=== PATIENT | male | born 1930 | race Caucasian/White ===

== ENCOUNTER → 2017-10-31 | Outpatient (CLI) | payer MEDICARE ==
[~2017-10-31] MED LIST: ADJUSTABLE COMM1 MIS; CPMMACHINE; DIAZ5TAB PO; FOLI800T PO; HYDR-3580 PO; OMEP20TA93 PO; TAMS0.4C4; VITA500T35 PO; WALKER WHEELS/F1 MIS
[2017-10-31 10:03] LABS: INTERNATIONAL NORMALIZED RATIO 1.1 RATIO; PROTHROMBIN TIME - PATIENT 11.3 SEC (9.8-11.6)
[2017-10-31 10:12] LABS: ALBUMIN 3.7 GM/DL (3.4-5.0); ALKALINE PHOSPHATASE 113 U/L (45-117); ALT (GPT) 21 U/L (12-78); AST (GOT) 25 U/L (15-37); BICARBONATE 24.1 MEQ/L (21.0-32.0); BLOOD UREA NITROGEN 21 MG/DL (7-18); CALCIUM 8.4 MG/DL (8.5-10.1); CHLORIDE 109 MEQ/L (98-107); CREATININE 1.45 MG/DL (0.60-1.30); GLOMERULAR FILTRATION RATE 46 ML/MIN (>89); GLUCOSE,FASTING 142 MG/DL (74-99); SODIUM (NA) 140 MEQ/L (136-145); TOTAL BILIRUBIN ADULT 0.9 MG/DL (0.2-1.0); TOTAL PROTEIN 7.8 GM/DL (6.4-8.2)
[2017-10-31 10:17] LABS: BILIRUBIN, URINE NEG (NEG); BLOOD, URINE TRACE (NEG); GLUCOSE,URINE NEG (NEG); KETONE, URINE NEG (NEG); MUCUS URINE FEW /lpf (OCC); NITRITE,URINE NEG (NEG); PH, URINE 5.5 (5.0-8.5); URINE COLOR YELLOW (YELLW/STRAW); URINE LEUKOCYTE ESTERASE NEG (NEG)
[2017-10-31 10:20] LABS: AUTOMATED NEUTROPHIL # 4.4 TH/MM3 (1.8-7.7); BASOPHIL # 0.1 TH/MM3 (0-0.2); BASOPHIL % 0.7 % (0.0-2.0); EOSINOPHIL # 0.1 TH/MM3 (0-0.4); HEMATOCRIT 33.7 % (39.0-51.0); HEMOGLOBIN 12.3 GM/DL (13.0-17.0); LYMPH % 26.7 % (9.0-44.0); LYMPHOCYTE # 1.8 TH/MM3 (1.0-4.8); MEAN CELL VOLUME 109.3 FL (80.0-100.0); MEAN CORPUSCULAR HEMOGLOBIN 39.8 PG (27.0-34.0); MEAN CORPUSCULAR HGB CONC 36.4 % (32.0-36.0); MEAN PLATELET VOLUME 9.5 FL (7.0-11.0); MONO % 8.3 % (0.0-8.0); MONOCYTE # 0.6 TH/MM3 (0-0.9); NEUT % 63.3 % (16.0-70.0); PLATELET COUNT 335 TH/MM3 (150-450); RED BLOOD COUNT 3.08 MIL/MM3 (4.50-5.90); RED CELL DISTRIBUTION WIDTH 14.3 % (11.6-17.2); WHITE BLOOD COUNT 6.9 TH/MM3 (4.0-11.0)
[2017-10-31 10:48] LABS: SPHEROCYTES OCC (NORMAL)
== END ==
LOC: CPRE 08:33
PROVIDERS: ATTEND Surgery
DX: Z01.812 Encounter for preprocedural laboratory examination (principal); M79.609 Pain in unspecified limb
CPT/HCPCS: 36415; 80053; 81001; 85025; 85610; 85730

== ENCOUNTER 2017-11-07 11:19 | Inpatient (IN) | payer MEDICARE ==
--- NOTE | 2017-11-01 17:23 | MH ---
cc: Aurea Capellan MD DATE OF ADMISSION: 11/07/2017 ADMITTING DIAGNOSIS: Osteoarthritic degeneration of the left knee, now being admitted for left total knee arthroplasty. 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 He has been cleared by his primary care physician. PAST MEDICAL HISTORY: He has a history of dizziness. He does have a type of anemia for which he is on B12. MEDICATIONS: He also takes Folic acid, omeprazole and tamsulosin. REVIEW OF SYSTEMS: Noncontributory. FAMILY HISTORY: Noncontributory. SOCIAL HISTORY: The patient does not smoke cigarettes and he does not drink. ALLERGIES: NO KNOWN ALLERGIES. PHYSICAL EXAMINATION: GENERAL We find an 86-year-old male, well-developed, well-nourished, alert and oriented x 3, complaining of pain in his left knee. VITAL SIGNS: Blood pressure 118/78, pulse 75 and regular, respirations 16, temperature 98.4, pulse oximetry 98% on room air. HEENT: Eyes: PERRL. EOMI. Ears, nose, and mouth clear. NECK: Supple. LUNGS: Clear. HEART: Regular rate. ABDOMEN: Soft, positive bowel sounds, nontender. EXTREMITIES: Reveals the left knee to be tender with crepitance on range of motion. He lacks 5 degrees short of full extension. He is neurovascularly intact to his toes. IMPRESSION: Severe painful osteoarthritic degeneration of the left knee. PLAN: Admission for left total knee arthroplasty today. The patient is given his current postoperative pain, anticoagulation control in the office, plans on going home with home health care and physical therapy after the surgical stay in the hospital. Aurea Capellan MD JRNam/KD , 04:59 PM , 05:22 PM
[~2017-11-07] VITALS: Ht 180.3 cm; Wt 80.0 kg
[~2017-11-07 11:19] MED LIST changes: -ADJUSTABLE COMM1 MIS; -CPMMACHINE; -HYDR-3580 PO; -WALKER WHEELS/F1 MIS
[2017-11-07] MEDS ORDERED: ceFAZolin INJ 1,000 MG VIAL IV ONE (12:00)
[2017-11-07] MEDS ORDERED: POVIDONE IODINE 5% (ANTISEPSIS KIT) 4 APPLICATIONS EACH NARE PRN (12:00)
[2017-11-07] MEDS ORDERED: METOPROLOL TARTRATE 25 MG TAB PO PRN (12:00)
[2017-11-07] MEDS ORDERED: PROPOFOL 200 MG/20 ML AMP IV ONE (12:00)
[2017-11-07] MEDS ORDERED: SODIUM CHLORID 0.9% 500 ML IV PRN (12:00)
[2017-11-07] MEDS ORDERED: SODIUM CHLORIDE 0.9% IV SCH ×4 (12:00)
[2017-11-07] MEDS ORDERED: TRANEXAMIC ACID IV SCH ×4 (12:00)
[2017-11-07] MEDS ORDERED: CHLORHEXIDINE GLUCONATE 2 % 1 PACK (2 CLOTHS) TOPICAL PRN (12:00)
[2017-11-07] MEDS ORDERED: LACTATED RINGER'S 1000 ML IV PRN (12:00)
[2017-11-07] MEDS ORDERED: INSULIN HUMAN REGULAR 1,000 UNITS/10 ML VIAL SQ PRN (12:00)
[2017-11-07] MEDS ORDERED: CHLORHEXIDINE GLUCONATE 4% SOLN 120 ML BTL TOPICAL SCH (12:00)
[2017-11-07] MEDS ORDERED: VANCOMYCIN 1 GM/200 ML INJ 200 ML IV ONE (12:11)
[2017-11-07] MEDS ORDERED: BUPIVACAINE LIPOSO PF 1.3% INJ 20 ML, BUPIVACAINE PF 0.25% INJ 20 ML in SODIUM CHLORIDE... P-ARTICULR SCH (12:15)
[2017-11-07 12:23] VITALS: PULSE 68
[2017-11-07] MEDS ORDERED: ceFAZolin 2 GM in NS 100 ML IV SCH (12:30)
[2017-11-07] MEDS ORDERED: VANCOMYCIN 1 GM/200 ML PREMIX IV SCH (12:30)
[2017-11-07] MEDS ORDERED: ceFAZolin INJ 1,000 MG VIAL ONE (13:38)
[2017-11-07] MEDS ORDERED: BUPIVACAINE PF 0.75% DEX-WATER INJ 2 ML AMP ONE (14:02)
[2017-11-07] MEDS ORDERED: BUPIVACAINE HCL PF 0.5% 30 ML VIAL ONE (14:05)
[2017-11-07] MEDS ORDERED: ONDANSETRON HCL 4 MG/2 ML VIAL IVP PRN (14:15)
[2017-11-07] MEDS ORDERED: DIAZEPAM 5 MG TAB PO PRN (14:15)
[2017-11-07] MEDS ORDERED: NALOXONE HCL 0.4 MG/ML AMP IV PUSH PRN (14:15)
[2017-11-07] MEDS ORDERED: ACETAMINOPHEN 325 MG TAB PO PRN (14:15)
[2017-11-07] MEDS ORDERED: MORPHINE SULFATE 4 MG/ML INJ IV PUSH PRN (14:15)
[2017-11-07] MEDS ORDERED: diphenhydrAMINE HCL 50 MG/ML VIAL IV PUSH PRN (14:15)
[2017-11-07] MEDS ORDERED: Post-op Orders (for Pharmacy) XX ONE (14:15)
[2017-11-07] MEDS ORDERED: TRANEXAMIC ACID INJ 0 MG in SODIUM CHLORIDE 0.9% INJ 100 ML IV SCH (14:15)
--- NOTE | 2017-11-07 14:16 | HHI.FF ---
Face to Face Verification Diagnosis: (1) Status post total left knee replacement Physical Therapy Gait training Knee: Total knee, Protocol: Left, Gait training, Full weight bearing Canvas Knee Splint: When in bed & 2 pillows btw thighs Nursing RN: 3 days/week x 2 weeks Nursing: Dressing changes Dressing Changes: Daily dressing change, 4x4s, Gauze, Paper tape I have seen patient Chris Angel on 11/07/17. My clinical findings support the need for the requested home health care services because: Limited ability to care for self High risk of falls I certify that my clinical findings support that this patient is homebound because: Unsteady gait/balance Aurea Capellan MD Nov 07, 2017 14:16
[2017-11-07] MEDS ORDERED: CPMMACHINE (14:17)
[2017-11-07] MEDS ORDERED: ADJUSTABLE COMM1 MIS (14:17)
[2017-11-07] MEDS ORDERED: WALKER WHEELS/F1 MIS (14:17)
[2017-11-07] MEDS ORDERED: MIDAZOLAM HCL 2 MG/2 ML VIAL ONE (15:12)
[2017-11-07 16:00] VITALS: BP 123/75; PULSE 73; RESP 18; TEMP 98.5; O2SAT 97
--- NOTE | 2017-11-07 17:30 | MP ---
cc: Aurea Capellan MD DATE OF OPERATION: 11/07/2017 PREOPERATIVE DIAGNOSIS: Osteoarthritic degeneration, left knee. POSTOPERATIVE DIAGNOSIS: Osteoarthritic degeneration, left knee. PROCEDURE PERFORMED: Left total knee arthroplasty using Consensus components, size 6 femur, 4 tibia, 10 standard insert and size 2 x 10 mm patella with 3 batches of DePuy cement. SURGEON: Aurea Capellan MD SHEARER PRINTED CIRCUIT BOARDS: STEPH Cavazos TYPE OF ANESTHESIA: Spinal. PROCEDURE: After successful induction of anesthesia, the patient is placed on the operating room table in the supine position. The knee is prepped and draped in the usual manner. No tourniquet was utilized in this case. A longitudinal incision is made extending from 3 inches proximal to the superior pole of the patella, across the patella in longitudinal fashion, and down past the insertion of the tibial tubercle into the proximal tibia. The incision is carried down through subcutaneous tissue along the medial aspect of the patella and retinaculum, down through the capsule to expose the knee joint. The patella and patellar tendon are freed up enough to allow the patella to be inverted and retracted off the lateral side of the knee joint. The knee joint is left exposed. Small osteophytes are removed. All soft tissue is removed to allow proper position of the femoral and tibial cutting jig guide. The first femoral jig is then inserted along the distal end of the femur after first measuring to decide whether this is a small, medium, or large component. The notch is then drilled and the tibial cutting guide inserted into the femoral cutting guide, along with the ankle brace to allow for proper measurement of the tibial cutting surface that needed to be resected. Pins are inserted into the tibial cutting jig and femoral cutting jig to hold them in place. An oscillating saw is then used to resect the surface of the tibia. The surface of the tibia is then completely removed using sharp and blunt dissection. The anterior and posterior cuts of the femur are then made as well using an oscillating saw through the cutting guide. All guides are then removed and the varus/valgus angulation cutting guide applied to the femur for proper measurement of the proper amount of valgus. The anterior cutting guide for the femur is then inserted at the anterior femoral cuts made. Next, the first block trial is inserted into the femur to allow for proper condyle drill holes to be made which are then made followed by removal of the bone between the condyles using an oscillating saw as well as the bone removed at the most posterior surface of the condyle. After this, this guide is removed and the chamfer cuts made using the chamfer cutting guide from both anterior and posterior. Next, the femoral trial is then inserted, the tibial surface reflected anterior to expose the tibial surface and a tibial stem guide is inserted after first measuring for a standard, standard plus, large, or large plus surface to be used. After the stem is impacted the trial tibial surface is applied followed by the trial meniscal components. After full range of motion is found with the appropriate length meniscal components varying the patella is prepared by resecting the posterior aspect of the patella using an oscillating saw, inserting a trial. The trial is then removed and the cruciate cutting guide applied using the bur to cut the cruciate cuts. After cruciate cuts are made all trials are removed. The wound is irrigated copiously with antibiotic solution and Water Pik and the actual components inserted into place using the aforementioned components. The cement has hardened and the components are found to have full range of motion with no instability. The wound again is irrigated copiously with antibiotic solution. Meticulous hemostasis achieved and 120 mL mixture of Exparel, normal saline and 0.25% Marcaine used for extra pain control around the knee joint. Deep fascia approximated with running #2 Quill. Subcutaneous tissue approximated using interrupted running 2-0 and 4-0 Monocryl suture and Primapore dressing applied and knee immobilizer. No drain utilized. ESTIMATED BLOOD LOSS: 200 mL. COUNTS: Sponge and suture counts were correct. COMPONENTS: The components used were Consensus components, size 6 femur, 4 tibia, 10 standard insert and size 2 x 10 mm patella with 3 batches of DePuy cement. The patient tolerated the procedure well and left the operating room in satisfactory condition. Anayeli Wagner was present during the entire procedure to include patient positioning and the procedure. The medical necessity of the nurse practitioner marketing administrative assistant was indicated in this case due to the surgical complexity of the case itself and during the surgical case, the assistant professor surgical technology was working the back table while my surgical assistant BENDER HAND was directly assisting me. J. MD KEITH Feliciano/JUDI , 05:00 PM , 05:29 PM
--- NOTE | 2017-11-07 17:32 | HHI.PR ---
Immediate Post Op Note Procedure Date: Nov 07, 2017 Pre Op Diagnosis: Osteoarthritic degeneration of the left knee Post Op Diagnosis: Osteoarthritic degeneration of the left knee Surgeon: Sabas Capellan MD Music Publicist(s): Anayeli CHOI Procedure: Left Total Knee Arthroplasty Complications: none Specimen(s) removed: none Estimated blood loss: 200 cc Anesthesia: Spinal Drains: None IVF Urinary Output (mLs): 0 (No del valle) Tourniquet time (min at mmHg) none Patient to: PACU Patient Condition: Good Implant/Devices: SEE IMPLANT LOG (if applicable) Date/Time of Procedure: SEE SURGICAL CARE RECORD Anayeli Wagner Nov 07, 2017 17:32
[2017-11-07] MEDS: LACTATED RINGER'S 1000 ML INJ 1,000 ML IV SCH (17:55)
[2017-11-07] MEDS ORDERED: DO NOT ADM ANY ANTICOAGULANT DRUGS PRN (18:00)
--- NOTE | 2017-11-07 18:06 | RADRPT ---
EXAM DATE/TIME: 11/07/2017 18:46 [facility] COMPARISON: No previous studies available for comparison. INDICATIONS : Post operative left knee. MEDICAL HISTORY : None. SURGICAL HISTORY : None. ENCOUNTER: Initial ACUITY: 1 day PAIN SCORE: 0/10 LOCATION: Left knee. FINDINGS: Two view examination of the left knee demonstrates postoperative left total knee replacement. Air and fluid in the soft tissues. No complications identified. CONCLUSION: 1. Postoperative left total knee replacement as above. Ganga Lewis MD on November 07, 2017 at 18:02 Board Certified Radiologist. This report was verified electronically.
[2017-11-07] MEDS ORDERED: *morphine SULFATE 4 MG/ML PERIprocedure ONLY ONE (18:24)
[2017-11-07 19:40] VITALS: BP 154/73; PULSE 67; RESP 17; TEMP 97.7; O2SAT 95
[2017-11-07] MEDS: TAMSULOSIN HCL 0.4 MG CAP PO SCH (20:13)
[2017-11-07] MEDS: ACETAMINOPHEN/HYDROcodone 325 MG/7.5 MG TAB PO PRN (20:13)
[2017-11-07] MEDS: TEMAZEPAM 15 MG CAP PO PRN (21:59)
[2017-11-08 00:05] VITALS: BP 128/62; PULSE 88; RESP 17; TEMP 98.6; O2SAT 94
[2017-11-08] MEDS: ACETAMINOPHEN/HYDROcodone 325 MG/7.5 MG TAB PO PRN ×6 (00:35→22:52)
[2017-11-08] MEDS: LACTATED RINGER'S 1000 ML INJ 1,000 ML IV SCH ×2 (02:39→14:04)
[2017-11-08 04:45] VITALS: BP 125/63; PULSE 92; RESP 17; TEMP 98.5; O2SAT 94
[2017-11-08 08:00] VITALS: BP 136/69; PULSE 98; RESP 16; TEMP 98.2; O2SAT 94
[2017-11-08] MEDS: FOLIC ACID 1 MG TAB PO SCH (08:29)
[2017-11-08] MEDS: CYANOCOBALAMIN 1,000 MCG TAB PO SCH (08:29)
[2017-11-08] MEDS: PANTOPRAZOLE SOD 20 MG DELAYED RELEASE TAB PO SCH (08:29)
[2017-11-08 09:52] LABS: HEMATOCRIT 26.6 % (39.0-51.0)
[2017-11-08 09:53] LABS: HEMOGLOBIN 9.4 GM/DL (13.0-17.0)
--- NOTE | 2017-11-08 09:55 | PD.ORT.PN ---
Subjective Subjective Remarks Pt comfortable at present time. Objective Vitals Vital Signs Date Time Temp Pulse Resp B/P (MAP) Pulse Ox O2 Delivery O2 Flow Rate FiO2 11/08/17 08:00 94 Room Air 11/08/17 08:00 98.2 98 16 136/69 (91) 94 11/08/17 06:17 18 11/08/17 04:45 98.5 92 17 125/63 (83) 94 11/08/17 00:05 98.6 88 17 128/62 (84) 94 11/07/17 22:52 Room Air 11/07/17 20:57 18 11/07/17 19:40 97.7 67 17 154/73 (100) 95 11/07/17 18:26 97.9 62 18 136/68 (90) 97 Room Air 11/07/17 18:15 59 15 143/71 (95) 97 Room Air 11/07/17 18:00 60 18 141/66 (91) 95 Room Air 11/07/17 17:45 60 17 163/70 (101) 95 Room Air 11/07/17 17:30 61 20 144/72 (96) 97 Room Air 11/07/17 17:26 98.0 69 19 179/75 (109) 98 Room Air 11/07/17 12:23 99 Nasal Cannula 2 11/07/17 12:23 68 11/07/17 12:17 97.8 71 18 161/78 (105) 100 I/O 11/07/17 11/07/17 11/07/17 11/08/17 11/08/17 11/08/17 07:00 15:00 23:00 07:00 15:00 23:00 Intake Total 1620 ml 580 ml Output Total 200 ml 475 ml Balance 1420 ml 105 ml Intake Oral 20 ml 480 ml IV Total 100 ml 100 ml Other 1500 ml Output Urine Total 475 ml Estimated Blood Loss 200 ml # Bowel Movements 0 Result Diagram: 11/08/17 0501 11/07/17 1202 Imaging Last 24 hours Impressions Knee X-Ray 11/07/17 1409 Signed Impressions: Service Date/Time: Tuesday, November 07, 2017 18:46 - CONCLUSION: 1. Postoperative left total knee replacement as above. Ganga Lewis MD Objective Remarks dressing dry and intact. In bed at present. No calf tenderness. Assessment & Plan Ortho Post Op Day #: 1 Problem List: Assessment and Plan PT, OOB, home possibly tomorrow. Aurea Capellan MD Nov 08, 2017 09:55
--- NOTE | 2017-11-08 10:41 | PD.CONS ---
HPI Service [facility] Hospitalists Consult Requested By Dr. Moises Capellan Reason for Consult Medical Management Primary Care Physician Jackson Zamudio MD Diagnoses: History of Present Illness Mr. Angel is a pleasant 86 y/o male with osteoarthritis, BPH, GERD and MGUS ( follows with Dr. Claudio). Pt was admitted to [facility] on 11/07/17 for left total knee arthroplasty with Dr. Capellan. [facility] Hospitalist team was consulted to help with managing his chronic medical issues. Pt is seen post-operatively and is doing well. His vital signs are stable. Pt is without any specific complaints at the time of examination today. Denies any abd pain, nausea/vomiting, chest pain, SOB, palpitations, dizziness or weakness. His pain is fairly well controlled at this time. 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 Thrombocytosis Memory loss Nonthrombocytopenic purpura Past Surgical History Appendectomy Partial colectomy Vasectomy Tonsillectomy Reported Medications Diazepam 5 Mg PO TID PRN Tamsulosin 0.4 Mg HS Omeprazole 20 Mg PO DAILY Vitamin B12 1,000 Mcg PO DAILY Folic Acid 2,000 Mcg PO DAILY Allergies: Coded Allergies: No Known Allergies (Unverified , 10/31/17) Family History Noncontributory Social History No reported alcohol, tobacco or illicit drug use Physical Exam Vital Signs Vital Signs Date Time Temp Pulse Resp B/P (MAP) Pulse Ox O2 Delivery O2 Flow Rate FiO2 11/08/17 08:00 94 Room Air 11/08/17 08:00 98.2 98 16 136/69 (91) 94 11/08/17 06:17 18 11/08/17 04:45 98.5 92 17 125/63 (83) 94 11/08/17 00:05 98.6 88 17 128/62 (84) 94 11/07/17 22:52 Room Air 11/07/17 20:57 18 11/07/17 19:40 97.7 67 17 154/73 (100) 95 11/07/17 18:26 97.9 62 18 136/68 (90) 97 Room Air 11/07/17 18:15 59 15 143/71 (95) 97 Room Air 11/07/17 18:00 60 18 141/66 (91) 95 Room Air 11/07/17 17:45 60 17 163/70 (101) 95 Room Air 11/07/17 17:30 61 20 144/72 (96) 97 Room Air 11/07/17 17:26 98.0 69 19 179/75 (109) 98 Room Air 11/07/17 12:23 99 Nasal Cannula 2 11/07/17 12:23 68 11/07/17 12:17 97.8 71 18 161/78 (105) 100 Physical Exam GENERAL: This is a well-nourished, well-developed patient, in no apparent distress. SKIN: No rashes, ecchymoses or lesions. Cool and dry. HEENT: Atraumatic. Normocephalic. No temporal or scalp tenderness. No scleral icterus. Airway patent. NECK: Trachea midline, supple, nontender. CARDIO: Regular. RESP: CTA bilaterally. No wheezes, rales, or rhonchi. ABD: +BS, soft, non-tender, nondistended. EXT: Extremities without clubbing, cyanosis, or edema. NEURO: Awake and alert. Motor and sensory grossly within normal limits. Normal speech. Laboratory Laboratory Tests Test 11/07/17 12:02 11/08/17 07:45 Potassium Level 4.5 Hemoglobin 9.4 Hematocrit 26.6 Result Diagram: 11/08/17 0745 11/07/17 1202 Imaging Last Impressions Knee X-Ray 11/07/17 1409 Signed Impressions: Service Date/Time: Tuesday, November 07, 2017 18:46 - CONCLUSION: 1. Postoperative left total knee replacement as above. Ganga Lewis MD Assessment and Plan Problem List: (1) Osteoarthritis of left knee ICD Codes: M17.12 - Unilateral primary osteoarthritis, left knee Status: Chronic Plan: s/p Left total knee arthroplasty Osteoarthritis - Pt is an 86 y/o male with osteoarthritis, BPH, GERD and MGUS - He was admitted on 11/07/17 for left total knee arthroplasty - Post-op pain control per Ortho - PT daily - IS - Constipation precautions - DVT prophylaxis with Eliquis 2.5mg po BID BPH - Home meds continued GERD - PPI MGUS - Pt follows outpt with Dr. Claudio - Monitor labs (2) BPH (benign prostatic hyperplasia) ICD Codes: N40.0 - Benign prostatic hyperplasia without lower urinary tract symptoms Status: Chronic (3) GERD (gastroesophageal reflux disease) ICD Codes: K21.9 - Gastro-esophageal reflux disease without esophagitis Status: Chronic (4) MGUS (monoclonal gammopathy of unknown significance) ICD Codes: D47.2 - Monoclonal gammopathy Status: Chronic Assessment and Plan Patient examined. Assessment and plan formulated with Pascale Thomas PA-C. I agree with the above. Problem Qualifiers (1) Osteoarthritis of left knee: Qualified Codes: M17.12 - Unilateral primary osteoarthritis, left knee Pascale Thomas Nov 08, 2017 10:41 Tony Robin DO Nov 11, 2017 23:20
[2017-11-08 11:59] VITALS: BP 128/66; PULSE 81; RESP 18; TEMP 97.9; O2SAT 97
[2017-11-08 15:45] VITALS: BP 122/57; PULSE 84; RESP 18; TEMP 97.8; O2SAT 94
[2017-11-08] MEDS: APIXABAN 2.5 MG TABLET PO SCH (16:48)
[2017-11-08 18:27] VITALS: BP 130/67; PULSE 93; RESP 15; TEMP 97.5; O2SAT 93
[2017-11-08] MEDS: TAMSULOSIN HCL 0.4 MG CAP PO SCH (20:15)
[2017-11-08] MEDS: DOCUSATE SODIUM 100 MG CAP PO SCH (20:15)
[2017-11-08] MEDS: MULTIVITAMINS/MINERALS THERAPEUTIC TAB PO SCH (20:15)
[2017-11-08] MEDS: TEMAZEPAM 15 MG CAP PO PRN (22:51)
[2017-11-09 00:40] VITALS: BP 124/59; PULSE 86; RESP 18; TEMP 98.9; O2SAT 94
[2017-11-09] MEDS: LACTATED RINGER'S 1000 ML INJ 1,000 ML IV SCH ×2 (03:39→16:09)
[2017-11-09] MEDS: APIXABAN 2.5 MG TABLET PO SCH ×2 (06:17→17:44)
[2017-11-09] MEDS: ACETAMINOPHEN/HYDROcodone 325 MG/7.5 MG TAB PO PRN ×4 (06:18→21:27)
[2017-11-09 07:57] VITALS: BP 127/66; PULSE 91; RESP 18; TEMP 99; O2SAT 96
[2017-11-09] MEDS: FOLIC ACID 1 MG TAB PO SCH (08:06)
[2017-11-09] MEDS: CYANOCOBALAMIN 1,000 MCG TAB PO SCH (08:06)
[2017-11-09] MEDS: DOCUSATE SODIUM 100 MG CAP PO SCH ×2 (08:07→21:27)
[2017-11-09] MEDS: MULTIVITAMINS/MINERALS THERAPEUTIC TAB PO SCH ×2 (08:07→21:27)
[2017-11-09] MEDS: PANTOPRAZOLE SOD 20 MG DELAYED RELEASE TAB PO SCH (08:07)
--- NOTE | 2017-11-09 08:22 | PD.ORT.PN ---
Subjective Subjective Remarks Pt having some pain in knee at present time. Objective Vitals Vital Signs Date Time Temp Pulse Resp B/P (MAP) Pulse Ox O2 Delivery O2 Flow Rate FiO2 11/09/17 07:57 99.0 91 18 127/66 (86) 96 11/09/17 07:18 16 11/09/17 00:40 98.9 86 18 124/59 (80) 94 11/08/17 18:27 97.5 93 15 130/67 (88) 93 11/08/17 16:00 94 Room Air 11/08/17 15:45 97.8 84 18 122/57 (78) 94 11/08/17 12:00 97 Room Air 11/08/17 11:59 97.9 81 18 128/66 (86) 97 I/O 11/08/17 11/08/17 11/08/17 11/09/17 11/09/17 11/09/17 07:00 15:00 23:00 07:00 15:00 23:00 Intake Total 580 ml 200 ml Output Total 475 ml 50 ml 700 ml Balance 105 ml -50 ml -500 ml Intake Oral 480 ml 200 ml IV Total 100 ml Output Urine Total 475 ml 50 ml 700 ml # Bowel Movements 0 0 Result Diagram: 11/08/17 0745 11/07/17 1202 Imaging Last 24 hours Impressions Knee X-Ray 11/07/17 1409 Signed Impressions: Service Date/Time: Tuesday, November 07, 2017 18:46 - CONCLUSION: 1. Postoperative left total knee replacement as above. Ganga Lewis MD Objective Remarks dressing dry and intact. In bed at present. No calf tenderness. Assessment & Plan Ortho Post Op Day #: 2 Problem List: Assessment and Plan PT, OOB, rehab vs [facility].. Aurea Capellan MD Nov 09, 2017 08:22
--- NOTE | 2017-11-09 08:26 | HHI.DS ---
Discharge Summary Admission Date Nov 07, 2017 at 11:19 Discharge Date: Nov 09, 2017 Admitting Diagnosis Osteoarthritic degeneration left knee Diagnosis: (1) Status post total left knee replacement ICD Codes: Z96.652 - Presence of left artificial knee joint Brief History This is a 86 year old male patient CBC/BMP: 11/08/17 0745 11/07/17 1202 Significant Findings Laboratory Tests Test 11/07/17 12:02 11/08/17 07:45 11/09/17 06:50 Hemoglobin 9.4 GM/DL (13.0-17.0) Hematocrit 26.6 % (39.0-51.0) PE at Discharge dressing dry and intact. In bed at present. No calf tenderness. Hospital Course Patient underwent a left total knee arthroplasty on day of admission. He received a course of prophylactic IV antibiotics and within 23 hours started anticoagulation therapy. He continued to improve remaining afebrile with stable vital signs. He began out of bed tolerating food and fluid well. He was discharged on postoperative day 2 inpatient rehabilitation in good condition for continuation of care. Pt Condition on Discharge: Good Discharge Disposition: Rehab Inpatient Discharge Instructions Diet Instructions: As Tolerated, No Restrictions Activities You Can Perform: Full Weight Bearing, Shower Only-No Bath Activities to Avoid: Bathing, Driving Aurea Capellan MD Nov 09, 2017 08:26
[2017-11-09] MEDS ORDERED: BACITRACIN OINT 0.9 GM PKT TOP PRN (10:15)
[2017-11-09 10:53] LABS: BICARBONATE 25.5 MEQ/L (21.0-32.0); CALCIUM 8.3 MG/DL (8.5-10.1); CREATININE 1.56 MG/DL (0.60-1.30)
[2017-11-09 11:08] LABS: AUTOMATED NEUTROPHIL # 11.9 TH/MM3 (1.8-7.7); BASOPHIL # 0.1 TH/MM3 (0-0.2); BASOPHIL % 0.4 % (0.0-2.0); EOSINOPHIL % 0.1 % (0.0-4.0); HEMATOCRIT 25.7 % (39.0-51.0); HEMOGLOBIN 9.2 GM/DL (13.0-17.0); LYMPH % 9.9 % (9.0-44.0); LYMPHOCYTE # 1.4 TH/MM3 (1.0-4.8); MEAN CELL VOLUME 108.1 FL (80.0-100.0); MEAN CORPUSCULAR HEMOGLOBIN 38.6 PG (27.0-34.0); MEAN CORPUSCULAR HGB CONC 35.7 % (32.0-36.0); MEAN PLATELET VOLUME 8.9 FL (7.0-11.0); MONO % 6.8 % (0.0-8.0); NEUT % 82.8 % (16.0-70.0); PLATELET COUNT 317 TH/MM3 (150-450); RED BLOOD COUNT 2.38 MIL/MM3 (4.50-5.90); RED CELL DISTRIBUTION WIDTH 13.8 % (11.6-17.2); WHITE BLOOD COUNT 14.4 TH/MM3 (4.0-11.0)
[2017-11-09 12:00] VITALS: BP 111/59; PULSE 95; RESP 18; TEMP 98.5; O2SAT 93
[2017-11-09 16:00] VITALS: BP 115/58; PULSE 100; RESP 18; TEMP 98.5; O2SAT 95
[2017-11-09 20:03] VITALS: BP 119/62; PULSE 102; RESP 16; TEMP 98.5; O2SAT 96
[2017-11-09] MEDS: TAMSULOSIN HCL 0.4 MG CAP PO SCH (21:27)
[2017-11-09] MEDS: TEMAZEPAM 15 MG CAP PO PRN (21:27)
[2017-11-10] VITALS: BP 104/58; PULSE 104; RESP 18; TEMP 99.7; O2SAT 93
[2017-11-10 04:00] VITALS: BP 122/58; PULSE 104; RESP 18; TEMP 99.5; O2SAT 95
[2017-11-10] MEDS: LACTATED RINGER'S 1000 ML INJ 1,000 ML IV SCH ×2 (04:39→17:09)
[2017-11-10] MEDS: ACETAMINOPHEN/HYDROcodone 325 MG/7.5 MG TAB PO PRN ×2 (05:42→16:23)
[2017-11-10] MEDS: APIXABAN 2.5 MG TABLET PO SCH ×2 (05:42→16:23)
[2017-11-10] MEDS ORDERED: MAGNESIUM HYDROXIDE SUSP 30 ML CUP PO PRN (07:00)
[2017-11-10 08:00] VITALS: BP 105/56; PULSE 100; RESP 18; TEMP 99.1; O2SAT 94
[2017-11-10] MEDS: DOCUSATE SODIUM 100 MG CAP PO SCH (09:19)
[2017-11-10] MEDS: MULTIVITAMINS/MINERALS THERAPEUTIC TAB PO SCH (09:19)
[2017-11-10] MEDS: PANTOPRAZOLE SOD 20 MG DELAYED RELEASE TAB PO SCH (09:19)
[2017-11-10] MEDS: FOLIC ACID 1 MG TAB PO SCH (09:20)
[2017-11-10] MEDS: CYANOCOBALAMIN 1,000 MCG TAB PO SCH (09:20)
[2017-11-10 10:30] LABS: BICARBONATE 26.9 MEQ/L (21.0-32.0); CALCIUM 8.3 MG/DL (8.5-10.1); CREATININE 1.53 MG/DL (0.60-1.30); MAGNESIUM 1.8 MG/DL (1.5-2.5)
[2017-11-10 11:09] LABS: AUTOMATED NEUTROPHIL # 8.2 TH/MM3 (1.8-7.7); BASOPHIL % 0.3 % (0.0-2.0); EOSINOPHIL % 0.4 % (0.0-4.0); HEMATOCRIT 22.6 % (39.0-51.0); LYMPH % 13.3 % (9.0-44.0); LYMPHOCYTE # 1.4 TH/MM3 (1.0-4.8); MEAN CELL VOLUME 108.2 FL (80.0-100.0); MEAN CORPUSCULAR HEMOGLOBIN 38.2 PG (27.0-34.0); MEAN CORPUSCULAR HGB CONC 35.3 % (32.0-36.0); MEAN PLATELET VOLUME 9.9 FL (7.0-11.0); MONO % 7.8 % (0.0-8.0); MONOCYTE # 0.8 TH/MM3 (0-0.9); NEUT % 78.2 % (16.0-70.0); PLATELET COUNT 293 TH/MM3 (150-450); RED BLOOD COUNT 2.08 MIL/MM3 (4.50-5.90); RED CELL DISTRIBUTION WIDTH 14.6 % (11.6-17.2); WHITE BLOOD COUNT 10.5 TH/MM3 (4.0-11.0)
[2017-11-10 12:00] VITALS: BP 115/57; PULSE 106; RESP 18; TEMP 98.2; O2SAT 95
[2017-11-10] MEDS ORDERED: BISACODYL 10 MG SUPP RECTAL ONE (13:45)
[2017-11-10 16:00] VITALS: BP 135/63; PULSE 99; RESP 18; TEMP 98.9; O2SAT 94
[2017-11-10] MEDS ORDERED: HYDR-3580 PO (16:42)
[2017-11-10 17:23] VITALS: RESP 16
== END 2017-11-10 19:27 | DRG 470 ==
LOC: HSDI 11:19 → N06B 18:32
PROVIDERS: ADMIT Surgery; ATTEND Surgery
PROC: 3E0T3BZ Introduction of Anesthetic Agent into Peripheral Nerves and Plexi, Percutaneous Approach (ICD-10-PCS; 2017-11-07)
PROC: 0SRD0J9 Replacement of Left Knee Joint with Synthetic Substitute, Cemented, Open Approach (ICD-10-PCS; principal; 2017-11-07 14:06)
DX: M17.12 Unilateral primary osteoarthritis, left knee (principal); D47.2 Monoclonal gammopathy; K21.9 Gastro-esophageal reflux disease without esophagitis; N40.0 Benign prostatic hyperplasia without lower urinary tract symptoms
CPT/HCPCS: 73560; 80048; 83735; 84132; 85014; 85018; 85025; 86850; 86900; 86901; 86920; 86922; 94150; C1776; C9290; J0690; J2250; J2270; J3370; J7120

== ENCOUNTER 2017-11-14 19:26 | Inpatient (IN) | payer MEDICARE ==
[~2017-11-14] VITALS: Ht 167.6 cm; Wt 80.0 kg
[~2017-11-14 19:26] MED LIST changes: +ADJUSTABLE COMM1 MIS; +CPMMACHINE; +HYDR-3580 PO; +WALKER WHEELS/F1 MIS
[2017-11-14 19:46] VITALS: BP 123/60; PULSE 95; RESP 16; TEMP 98.1; O2SAT 97
[2017-11-14 19:49] VITALS: RESP 18; O2SAT 97
--- NOTE | 2017-11-14 19:51 | PD ---
HPI Chief Complaint: Anemia Time Seen by Provider: 19:30 Travel History International Travel<30 days: No Contact w/Intl Traveler<30days: No History of Present Illness HPI The patient is an 87 year old male who presents to the [facility] emergency department with a history of being sent by his rehabilitation center for low hemoglobin. The patient was noted to have screening blood work done that showed a hemoglobin reportedly of 4.7. The patient reports feeling well overall. The patient reports that on November 07 he underwent a left total knee replacement by Dr. Capellan. The patient reports that he has not had a good appetite at the rehabilitation facility. He reports that he is also had constipation. His last bowel movement was reportedly 5 days ago. He reports that he has noticed some dark stool. He denies having any bright red blood in his stool. He reports that he last had a colonoscopy approximately a year ago. He has had a partial colon resection related to 2 large polyps that were reportedly benign. He denies having any abdominal pain. He reports having some lightheaded sensation with standing and generalized weakness. He denies having any chest pain, chest pressure, or shortness of breath. On review of systems otherwise, he denies having any known recent fevers, cough or congestion , neck pain, vomiting, diarrhea, urinary symptoms, or neurologic symptoms. The patient is currently on Eliquis for DVT prevention [facility] Past Medical History Narrative Medical The patient's past medical history is significant for osteoarthritis, benign prostatic hypertrophy, acid reflux, history of thrombocytosis, history of memory loss, history of nonthrombocytopenic purpura, history of colon polyps, history of monoclonal gammopathy of undetermined significance. Cancer: Yes (skin) Cardiovascular Problems: No Diabetes: No Endocrine: No Genitourinary: Yes Hiatal Hernia: No Immune Disorder: No Musculoskeletal: No Neurologic: No Psychiatric: No Reproductive: No Respiratory: No Thyroid Disease: No Past Surgical History Narrative Surgical The patient's past surgical history is significant for an appendectomy, partial colectomy, vasectomy, tonsillectomy. Abdominal Surgery: Yes (lap resection, appy) AICD: No Joint Replacement: No Pacemaker: No Social History Alcohol Use: No Tobacco Use: No Substance Use: No Allergies-Medications (Allergen,Severity, Reaction): Coded Allergies: No Known Allergies (Unverified , 4/2/18) Reported Meds & Prescriptions Reported Meds & Active Scripts Active Hydrocodone-Acetamin 7.5-325 (Hydrocodone/Acetaminophen) 7.5 Mg-325 Mg Tablet 1 Tab PO Q4H PRN Walker with Front Wheels (Device) 1 Mis Mis Ea .XX DIRECTED Adjustable Commode 3-in-1 (Device) 1 Mis Mis Ea .XX DIRECTED CPM-Continuous Passive Motion Machine 1 Ea Device Ea .XX DIRECTED Reported Diazepam 5 Mg Tab 5 Mg PO TID PRN Tamsulosin (Tamsulosin HCl) 0.4 Mg Cap 0.4 Mg HS Omeprazole 20 Mg Tab 20 Mg PO DAILY Vitamin B12 (Cyanocobalamin) 500 Mcg Tab 1,000 Mcg PO DAILY Folic Acid 0.8 Mg Tab 2,000 Mcg PO DAILY Review of Systems Except as stated in HPI: all other systems reviewed are Neg General / Constitutional: No: Fever Eyes: No: Visual changes HENT: Positive: Lightheadedness, No: Headaches, Congestion Cardiovascular: No: Chest Pain or Discomfort Respiratory: No: Shortness of Breath Gastrointestinal: Positive: Constipation, Changes in Bowel Habits, Loss of Appetite, No: Nausea, Vomiting, Diarrhea, Abdominal Pain, Indigestion Genitourinary: No: Dysuria Musculoskeletal: No: Pain Skin: No Rash Neurologic: Positive: Weakness (Generalized weakness), No: Focal Abnormalities , Change in Mentation, Slurred Speech, Sensory Disturbance Psychiatric: No: Depression Endocrine: No: Polydipsia Hematologic/Lymphatic: No: Easy Bruising Physical Exam Narrative General: The patient is a well-developed well-nourished male in no acute distress. Head and Neck exam: Head is normocephalic atraumatic. Eyes: EOMI, pupils are equal round and reactive to light. Nose: Midline septum with pink mucous membranes Mouth: Dentition unremarkable. Moist mucus membranes. Posterior oropharynx is not erythematous. No tonsillar hypertrophy. Uvula midline. Airway patent. Neck: No palpable lymphadenopathy. No nuchal rigidity. No thyromegaly. Cardiovascular: Regular rate and rhythm with a 2/6 systolic murmur best audible at the left anterior axillary line, nipple level. No gallops or rubs. No pulse deficit to the extremities on simultaneous auscultation and palpation of his radial artery. Lungs: Clear to auscultation bilaterally. No wheezes, rhonchi, or rales. Abdomen: Soft, without tenderness to palpation in all 4 quadrants of the abdomen. No guarding, rebound, or rigidity. Normal bowel sounds are audible. No tenderness on palpation of McBurney's point. Extremities: No clubbing, cyanosis, or edema, except in the area of interest, the left knee where the patient has a recent wound from left knee replacement. There is mild swelling, however no drainage. 2+ pulses in all 4 extremities. No calf tenderness on palpation. Back: No costovertebral angle tenderness to palpation. Neurologic Exam: Grossly nonfocal. Skin Exam: No rash noted. Intact skin that is warm and dry. RECTAL EXAM: No masses or tenderness, stool is brown. Stool is Hemoccult positive Data Data Last Documented VS Vital Signs Date Time Temp Pulse Resp B/P (MAP) Pulse Ox O2 Delivery O2 Flow Rate FiO2 11/14/17 19:49 18 97 Room Air 11/14/17 19:46 98.1 95 123/60 (81) Orders Orders Electrocardiogram (11/14/17 19:43) Complete Blood Count With Diff (11/14/17 19:43) Comprehensive Metabolic Panel (11/14/17 19:43) Creatine Kinase (Cpk) (11/14/17 19:43) Ckmb (Isoenzyme) Profile (11/14/17 19:43) Troponin I (11/14/17:43) B-Type Natriuretic Peptide (11/14/17 19:43) Prothrombin Time / Inr (Pt) (11/14/17 19:43) Act Partial Throm Time (Ptt) (11/14/17 19:43) Magnesium (Mg) (11/14/17 19:43) Chest, Single Ap (11/14/17 19:43) Ct Abd/Pel W Iv Contrast(Rout) (11/14/17 19:43) Iv Access Insert/Monitor (11/14/17 19:43) Ecg Monitoring (11/14/17 19:43) Oximetry (11/14/17 19:43) Type And Screen (11/14/17 19:43) Red Blood Cells (Rbc) (11/14/17 19:43) Acetamin-Hydrocod 325-7.5 Mg ([place] 7.5 (11/14/17 20:15) CKMB (11/14/17 19:45) CKMB% (11/14/17 19:45) Blood Product Administration (11/14/17 21:08) Sodium Chlor 0.9% 250 Ml Inj (Ns 250 Ml (11/14/17 21:15) Admit Order (Ed Use Only) (11/14/17 22:13) Admit To Inpatient (11/14/17 ) Inpatient Certification (11/14/17 ) Vital Signs (Adult) TARIK.Q4H (11/14/17 22:13) Diet Heart Healthy (11/15/17 Breakfast) Activity Oob With Assistance (11/14/17 22:13) High Fall Risk Interventions TARIK.QEVE (11/14/17 22:13) Consult Gastroenterology (11/14/17 ) Complete Blood Count With Diff (11/15/17 06:00) Comprehensive Metabolic Panel (11/15/17 06:00) Labs Laboratory Tests Test 11/14/17 19:45 White Blood Count 13.4 TH/MM3 Red Blood Count 1.32 MIL/MM3 Hemoglobin 5.3 GM/DL Hematocrit 14.8 % Mean Corpuscular Volume 112.3 FL Mean Corpuscular Hemoglobin 40.1 PG Mean Corpuscular Hemoglobin Concent 35.7 % Red Cell Distribution Width 14.4 % Platelet Count 499 TH/MM3 Mean Platelet Volume 8.1 FL Neutrophils (%) (Auto) 72.9 % Lymphocytes (%) (Auto) 15.4 % Monocytes (%) (Auto) 9.6 % Eosinophils (%) (Auto) 1.5 % Basophils (%) (Auto) 0.6 % Neutrophils # (Auto) 9.7 TH/MM3 Lymphocytes # (Auto) 2.1 TH/MM3 Monocytes # (Auto) 1.3 TH/MM3 Eosinophils # (Auto) 0.2 TH/MM3 Basophils # (Auto) 0.1 TH/MM3 CBC Comment AUTO DIFF Differential Total Cells Counted 100 Neutrophils % (Manual) 55 % Band Neutrophils % 1 % Lymphocytes % 20 % Monocytes % 11 % Eosinophils % 2 % Basophils % 1 % Neutrophils # (Manual) 8.8 TH/MM3 Metamyelocytes 5 % Myelocytes 3 % Promyelocytes 2 % Differential Comment FINAL DIFF MANUAL Toxic Granulation 1+ Dohle Bodies PRESENT Platelet Estimate HIGH Platelet Morphology Comment NORMAL Polychromasia 3.2 % Spherocytes 2+ Ovalocytes 1+ Rouleau PRESENT Hematology Comments Prothrombin Time 11.1 SEC Prothromb Time International Ratio 1.1 RATIO Activated Partial Thromboplast Time 21.9 SEC Blood Urea Nitrogen 27 MG/DL Creatinine 1.57 MG/DL Random Glucose 114 MG/DL Total Protein 6.5 GM/DL Albumin 2.4 GM/DL Calcium Level 7.9 MG/DL Magnesium Level 2.4 MG/DL Alkaline Phosphatase 214 U/L Aspartate Amino Transf (AST/SGOT) 86 U/L Alanine Aminotransferase (ALT/SGPT) 88 U/L Total Bilirubin 1.1 MG/DL Sodium Level 133 MEQ/L Potassium Level 4.8 MEQ/L Chloride Level 100 MEQ/L Carbon Dioxide Level 26.1 MEQ/L Anion Gap 7 MEQ/L Estimat Glomerular Filtration Rate 42 ML/MIN Total Creatine Kinase 383 U/L Creatine Kinase MB 1.7 NG/ML Creatine Kinase MB % 0.4 % Troponin I LESS THAN 0.02 NG/ML MDM Medical Decision Making Medical Screen Exam Complete: Yes Emergency Medical Condition: Yes Medical Record Reviewed: Yes Interpretation(s) Last Impressions Chest X-Ray 11/14/171942 Signed Impressions: Service Date/Time: Tuesday, November 14, 2017 20:19 - CONCLUSION: No acute disease. Gael Roberts MD Abdomen/Pelvis CT 11/14/171942 Signed Impressions: Service Date/Time: Tuesday, November 14, 2017 21:24 - CONCLUSION: 1. Mild hiatal hernia. 2. Status post colonic surgery with a anastomosis suture in the sigmoid colon. 3. Mild patchy consolidation at the posterior medial left lower lobe. 4. 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 Gael Roberts MD Differential Diagnosis Postoperative bleeding causing anemia, versus GI bleed on Eliquis Narrative Course During the course of the patient's emergency department visit, the patient's history, examination, and differential diagnosis were reviewed with the patient. The patient was placed on a rn cardiac with oximetry and frequent blood pressure monitoring. The patient had IV access obtained and blood work sent for analysis. The patient is noted to be Hemoccult positive. The patient has been on Eliquis. The patient will be typed and crossmatched for blood administration. The patient was agreeable to having blood administered. The patient will be given 2 units of packed red blood cells. The patient had an EKG done on arrival that shows a sinus rhythm with a first-degree AV block, QRS duration is 93 ms, QTC [address] segment elevation. The patient's laboratory studies were reviewed and remarkable for a white count of 13.4, hemoglobin 5.3, platelets 499 with 11 monocytes, CMP is remarkable for BUN of 27, creatinine 1.57, sodium 133, glucose 114, total bilirubin 1.1, AST 86 , ALT 88, alk phos 214. CPK 383 with a normal MB percent, troponin I less than 0.02, albumin 2.4. PT 11.1, PTT 21.9 Radiology studies were reviewed and remarkable for a chest x-ray that showed no acute evidence of cardiopulmonary disease, CT scan of the abdomen and pelvis showed a mild hiatal hernia, status post colonic surgery with an anastomosis suture in the sigmoid colon, mild patchy consolidation of the posterior medial left lower lobe, suspected renal parapelvic cysts. The patient was started on 2 units of packed red blood cells for transfusion. I spoke to Dr. Polo regarding this patient's case. He recommended that the patient's Eliquis be held. The patient's results were discussed with the patient, including the plan of care. I explained that further testing and/ or monitoring is indicated based on the patient's history, examination, and/ or laboratory findings. Therefore, I recommended admission for additional evaluation. The patient expressed understanding and was agreeable with this plan. The patient was admitted to the hospital in guarded condition and sent to a bed under the care of the [facility] service. [facility] Point of Care Internal Pos. & Neg. Controls: Passed Fecal Specimen Occult Blood: Positive Physician Communication Physician Communication The patient's case including history, pertinent physical examination findings, and laboratory studies were discussed with Dr. Polo. It was agreed that the patient would be admitted to the [facility] service. Diagnosis Primary Impression: GI bleed Qualified Codes: K92.2 - Gastrointestinal hemorrhage, unspecified Additional Impression: Symptomatic anemia Admitting Information Admitting Physician Requests: Admit Shagufta Melton MD Nov 14, 2017 19:51
[2017-11-14 20:14] LABS: INTERNATIONAL NORMALIZED RATIO 1.1 RATIO; PROTHROMBIN TIME - PATIENT 11.1 SEC (9.8-11.6)
[2017-11-14] MEDS ORDERED: ACETAMINOPHEN/HYDROcodone 325 MG/7.5 MG TAB PO ONE (20:15)
[2017-11-14 20:26] LABS: ALKALINE PHOSPHATASE 214 U/L (45-117); TOTAL BILIRUBIN ADULT 1.1 MG/DL (0.2-1.0); TOTAL PROTEIN 6.5 GM/DL (6.4-8.2); TROPONIN I LESS THAN 0.02 NG/ML (0.02-0.05)
[2017-11-14 20:46] LABS: ALBUMIN 2.4 GM/DL (3.4-5.0); ALT (GPT) 88 U/L (12-78); AST (GOT) 86 U/L (15-37); BICARBONATE 26.1 MEQ/L (21.0-32.0); BLOOD UREA NITROGEN 27 MG/DL (7-18); CALCIUM 7.9 MG/DL (8.5-10.1); CHLORIDE 100 MEQ/L (98-107); CREATININE 1.57 MG/DL (0.60-1.30); GLOMERULAR FILTRATION RATE 42 ML/MIN (>89); GLUCOSE,RANDOM 114 MG/DL (74-106); MAGNESIUM 2.4 MG/DL (1.5-2.5); SODIUM (NA) 133 MEQ/L (136-145)
--- NOTE | 2017-11-14 20:51 | RADRPT ---
EXAM DATE/TIME: 11/14/2017 20:19 [facility] COMPARISON: No previous studies available for comparison. INDICATIONS : Abnormal hemoglobin lab results. MEDICAL HISTORY : None. SURGICAL HISTORY : Total knee replacement, left. ENCOUNTER: Initial ACUITY: 1 day PAIN SCORE: 0/10 LOCATION: Bilateral chest FINDINGS: A single view of the chest demonstrates the lungs to be symmetrically aerated without evidence of mas s, infiltrate or effusion. The cardiomediastinal contours are unremarkable. Osseous structures are intact. CONCLUSION: No acute disease. Gael Roberts MD on November 14, 2017 at 20:49 Board Certified Radiologist. This report was verified electronically.
[2017-11-14 21:06] LABS: AUTOMATED NEUTROPHIL # 9.7 TH/MM3 (1.8-7.7); BASOPHIL # 0.1 TH/MM3 (0-0.2); BASOPHIL % 0.6 % (0.0-2.0); EOSINOPHIL # 0.2 TH/MM3 (0-0.4); EOSINOPHIL % 1.5 % (0.0-4.0); LYMPH % 15.4 % (9.0-44.0); LYMPHOCYTE # 2.1 TH/MM3 (1.0-4.8); MEAN CELL VOLUME 112.3 FL (80.0-100.0); MEAN CORPUSCULAR HEMOGLOBIN 40.1 PG (27.0-34.0); MEAN CORPUSCULAR HGB CONC 35.7 % (32.0-36.0); MEAN PLATELET VOLUME 8.1 FL (7.0-11.0); MONO % 9.6 % (0.0-8.0); MONOCYTE # 1.3 TH/MM3 (0-0.9); NEUT % 72.9 % (16.0-70.0); PLATELET COUNT 499 TH/MM3 (150-450); RED BLOOD COUNT 1.32 MIL/MM3 (4.50-5.90); RED CELL DISTRIBUTION WIDTH 14.4 % (11.6-17.2); WHITE BLOOD COUNT 13.4 TH/MM3 (4.0-11.0)
[2017-11-14 21:08] LABS: HEMATOCRIT 14.8 % (39.0-51.0); HEMOGLOBIN 5.3 GM/DL (13.0-17.0)
[2017-11-14] MEDS ORDERED: SODIUM CHLOR 0.9% 250 ML INJ 250 ML IV ONE (21:15)
[2017-11-14] MEDS ORDERED: IOHEXOL 350 MG/ML 10 ML VIAL (for RAD DIAG) IVCONTRAST ONE (21:24)
[2017-11-14 21:51] LABS: BANDS 1 % (0-6); BASOPHILS 1 % (0-2); LYMPHOCYTES 20 % (9-44); METAMYELOCYTES 5 % (0-1); MONOCYTES 11 % (0-8); MYELOCYTES 3 % (0-0); NEUTROPHIL # MANUAL DIFF 8.8 TH/MM3 (1.8-7.7); POLYS (SEG NEUTROPHILS) 55 % (16-70); PROMYELOCYTES 2 % (0-0)
[2017-11-14 21:52] LABS: POLYCHROMASIA 3.2 % (0.0-1.9); SPHEROCYTES 2+ (NORMAL)
[2017-11-14 21:53] LABS: DOHLE BODIES PRESENT (NONE SEEN); OVALOCYTES 1+ (NORMAL); ROULEAUX PRESENT (NORMAL); TOXIC GRANULATION 1+ (NORMAL)
--- NOTE | 2017-11-14 22:11 | RADRPT ---
EXAM DATE/TIME: 11/14/2017 21:24 [facility] COMPARISON: No previous studies available for comparison. INDICATIONS : Low HGB with blood in stool. IV CONTRAST: 95 cc Omnipaque 350 (iohexol) IV ORAL CONTRAST: No oral contrast ingested. RADIATION DOSE: 8.42 CTDIvol (mGy) MEDICAL HISTORY : Gastroesophageal reflux disease. Skin cancer SURGICAL HISTORY : Appendectomy. ENCOUNTER: Initial ACUITY: 1 day PAIN SCALE: 0/10 LOCATION: abdomen TECHNIQUE: Volumetric scanning of the abdomen and pelvis was performed. Using automated exposure control and ad justment of the mA and/or kV according to patient size, radiation dose was kept as low as reasonably achievable to obtain optimal diagnostic quality images. DICOM format image data is available electro nically for review and comparison. FINDINGS: LOWER LUNGS: There is patchy areas of consolidation seen in the medial left lower lobe. LIVER: Homogeneous density without lesion. There is no dilation of the biliary tree. No calcified gallston es. SPLEEN: Normal size without lesion. PANCREAS: Within normal limits. KIDNEYS: Normal in size and shape. There is no stone or hydronephrosis. There is cystic change in the central aspects of the kidneys bilaterally likely related to parapelvic cysts versus dilatation of the colle cting system. The ureters are not dilated. This would suggest parapelvic cysts are more likely. ADRENAL GLANDS: Within normal limits. VASCULAR: There is no aortic aneurysm. BOWEL/MESENTERY: There is a mild hiatal hernia. Bowel sutures are seen at the distal sigmoid colon region. ABDOMINAL WALL: Within normal limits. RETROPERITONEUM: There is no lymphadenopathy. BLADDER: No wall thickening or mass. REPRODUCTIVE: Within normal limits. INGUINAL: There is no lymphadenopathy or hernia. MUSCULOSKELETAL: There is degenerative change in the lumbar spine. CONCLUSION: 1. Mild hiatal hernia. 2. Status post colonic surgery with a anastomosis suture in the sigmoid colon. 3. Mild patchy consolidation at the posterior medial left lower lobe. 4. 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 Gael Roberts MD on November 14, 2017 at 22:05 Board Certified Radiologist. This report was verified electronically.
[2017-11-14] MEDS ORDERED: DIAZEPAM 5 MG TAB PO PRN (22:30)
[2017-11-14 23:05] VITALS: BP 119/57; PULSE 88; RESP 14; TEMP 98.3; O2SAT 97
[2017-11-14 23:20] VITALS: BP 109/56; PULSE 85; RESP 16; TEMP 98.4; O2SAT 98
[2017-11-15] VITALS (18 sets, daily range): BP systolic 100–167; BP diastolic 51–69; PULSE 66–89; RESP 16–20; TEMP 97.4–99; O2SAT 94–99
[2017-11-15 07:30] LABS: ALBUMIN 2.5 GM/DL (3.4-5.0); AST (GOT) 57 U/L (15-37); BICARBONATE 27.2 MEQ/L (21.0-32.0); BLOOD UREA NITROGEN 22 MG/DL (7-18); CALCIUM 8.1 MG/DL (8.5-10.1); CHLORIDE 102 MEQ/L (98-107); CREATININE 1.48 MG/DL (0.60-1.30); GLOMERULAR FILTRATION RATE 45 ML/MIN (>89); GLUCOSE,RANDOM 97 MG/DL (74-106); SODIUM (NA) 137 MEQ/L (136-145)
[2017-11-15 07:31] LABS: AUTOMATED NEUTROPHIL # 8.7 TH/MM3 (1.8-7.7); BASOPHIL # 0.1 TH/MM3 (0-0.2); BASOPHIL % 0.6 % (0.0-2.0); EOSINOPHIL # 0.3 TH/MM3 (0-0.4); EOSINOPHIL % 2.1 % (0.0-4.0); LYMPH % 18.3 % (9.0-44.0); LYMPHOCYTE # 2.3 TH/MM3 (1.0-4.8); MEAN CELL VOLUME 108.1 FL (80.0-100.0); MEAN CORPUSCULAR HEMOGLOBIN 40.4 PG (27.0-34.0); MEAN CORPUSCULAR HGB CONC 37.4 % (32.0-36.0); MEAN PLATELET VOLUME 7.9 FL (7.0-11.0); MONO % 10.7 % (0.0-8.0); MONOCYTE # 1.4 TH/MM3 (0-0.9); NEUT % 68.3 % (16.0-70.0); PLATELET COUNT 538 TH/MM3 (150-450); RED BLOOD COUNT 1.83 MIL/MM3 (4.50-5.90); RED CELL DISTRIBUTION WIDTH 16.1 % (11.6-17.2); WHITE BLOOD COUNT 12.8 TH/MM3 (4.0-11.0)
[2017-11-15 07:33] LABS: ALKALINE PHOSPHATASE 181 U/L (45-117); ALT (GPT) 75 U/L (12-78); TOTAL PROTEIN 6.3 GM/DL (6.4-8.2)
[2017-11-15 07:36] LABS: HEMATOCRIT 19.8 % (39.0-51.0); HEMOGLOBIN 7.4 GM/DL (13.0-17.0)
--- NOTE | 2017-11-15 07:55 | HHI.HP ---
HPI Service [facility] Hospitalists Primary Care Physician Jackson Zamudio MD Admission Diagnosis Symptomatic Anemia, GI bleed Chief Complaint: abnormal blood wprk send by rehab center Travel History International Travel<30 Days: No Contact w/Intl Traveler <30 Da: No Traveled to Known Affected Are: No History of Present Illness Mr. Angel is a pleasant 86 y/o male with osteoarthritis, BPH, GERD and MGUS ( follows with Dr. Claudio). Pt was admitted to [facility] on 11/07/17 for left total knee arthroplasty with Dr. Capellan. Patient was DC to rehabilitation then patient presented to [facility] emergency department with a due to low hemoglobin. Per report the CBC at rehab showed a hemoglobin reportedly of 4.7. He reports having some lightheaded sensation with standing and generalized weakness. Patient endorses some dark stool. He denies having any bright red blood in his stool. He reports that he last had a colonoscopy approximately a year ago. He has had a partial colon resection related to 2 large polyps that were reportedly benign. He denies having any abdominal pain. He denies having any chest pain, chest pressure, or shortness of breath, fevers, cough, congestion, neck pain, vomiting, diarrhea, urinary symptoms, or neurologic symptoms. The patient reports that he has not had a good appetite at the rehabilitation facility. He reports that he is also had constipation. His last bowel movement was reportedly 5 days ago. 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 Capellan Appendectomy Partial colectomy Vasectomy Tonsillectomy Reported Medications Hydrocodone-Acetamin 7.5-325 (Hydrocodone/Acetaminophen) 7.5 Mg-325 Mg Tablet 1 Tab PO Q4H PRN Diazepam 5 Mg Tab 5 Mg PO TID PRN Tamsulosin (Tamsulosin HCl) 0.4 Mg Cap 0.4 Mg HS Omeprazole 20 Mg Tab 20 Mg PO DAILY Vitamin B12 (Cyanocobalamin) 500 Mcg Tab 1,000 Mcg PO DAILY Folic Acid 0.8 Mg Tab 2,000 Mcg PO DAILY Eliquis Allergies: Coded Allergies: No Known Allergies (Unverified , 10/31/17) Family History Noncontributory Social History No reported alcohol, tobacco or illicit drug use Physical Exam Vital Signs Vital Signs Date Time Temp Pulse Resp B/P (MAP) Pulse Ox O2 Delivery O2 Flow Rate FiO2 11/15/17 05:54 98.3 89 18 125/57 99 11/15/17 03:21 98.8 78 18 104/51 98 11/15/17 02:58 98.9 83 16 117/56 96 11/15/17 02:53 98.9 86 16 117/56 96 11/15/17 02:39 98.9 83 16 100/54 97 11/14/17 23:20 98.4 85 16 109/56 98 11/14/17 23:05 98.3 88 14 119/57 97 11/14/17 19:49 18 97 Room Air 11/14/17 19:46 98.1 95 16 123/60 (81) 97 Physical Exam GENERAL: This is a well-nourished, well-developed patient, in no apparent distress. SKIN: papula rash though out posterior thorax, healing incision left knee no drainage or redness HEAD: Atraumatic. Normocephalic. No temporal or scalp tenderness. EYES: Extraocular motions intact. No scleral icterus. No injection or drainage. CARDIOVASCULAR: Regular rate and rhythm wit murmur present RESPIRATORY: Clear to auscultation. Breath sounds equal bilaterally. GASTROINTESTINAL: Abdomen soft, non-tender, nondistended. MUSCULOSKELETAL: Extremities without clubbing, cyanosis, or edema. No joint tenderness, effusion, or edema noted. No calf tenderness. Negative Homans sign bilaterally. NEUROLOGICAL: Awake and alert. No focal deficits. Motor and sensory grossly within normal limits. Five out of 5 muscle strength in all muscle groups. Normal speech. Laboratory Laboratory Tests Test 11/14/17 19:45 11/15/17 05:45 11/15/17 05:55 White Blood Count 13.4 12.8 Red Blood Count 1.32 1.83 Hemoglobin 5.3 7.4 Hematocrit 14.8 19.8 Mean Corpuscular Volume 112.3 108.1 Mean Corpuscular Hemoglobin 40.1 40.4 Mean Corpuscular Hemoglobin Concent 35.7 37.4 Red Cell Distribution Width 14.4 16.1 Platelet Count 499 538 Mean Platelet Volume 8.1 7.9 Neutrophils (%) (Auto) 72.9 68.3 Lymphocytes (%) (Auto) 15.4 18.3 Monocytes (%) (Auto) 9.6 10.7 Eosinophils (%) (Auto) 1.5 2.1 Basophils (%) (Auto) 0.6 0.6 Neutrophils # (Auto) 9.7 8.7 Lymphocytes # (Auto) 2.1 2.3 Monocytes # (Auto) 1.3 1.4 Eosinophils # (Auto) 0.2 0.3 Basophils # (Auto) 0.1 0.1 CBC Comment AUTO DIFF AUTO DIFF Differential Total Cells Counted 100 Neutrophils % (Manual) 55 Band Neutrophils % 1 Lymphocytes % 20 Monocytes % 11 Eosinophils % 2 Basophils % 1 Neutrophils # (Manual) 8.8 Metamyelocytes 5 Myelocytes 3 Promyelocytes 2 Differential Comment FINAL DIFF MANUAL Toxic Granulation 1+ Dohle Bodies PRESENT Platelet Estimate HIGH Platelet Morphology Comment NORMAL Polychromasia 3.2 Spherocytes 2+ Ovalocytes 1+ Rouleau PRESENT Hematology Comments Prothrombin Time 11.1 Prothromb Time International Ratio 1.1 Activated Partial Thromboplast Time 21.9 Blood Urea Nitrogen 27 22 Creatinine 1.57 1.48 Random Glucose 114 97 Total Protein 6.5 6.3 Albumin 2.4 2.5 Calcium Level 7.9 8.1 Magnesium Level 2.4 Alkaline Phosphatase 214 181 Aspartate Amino Transf (AST/SGOT) 86 57 Alanine Aminotransferase (ALT/SGPT) 88 75 Total Bilirubin 1.1 1.0 Sodium Level 133 137 Potassium Level 4.8 4.7 Chloride Level 100 102 Carbon Dioxide Level 26.1 27.2 Anion Gap 7 8 Estimat Glomerular Filtration Rate 42 45 Total Creatine Kinase 383 Creatine Kinase MB 1.7 Creatine Kinase MB % 0.4 Troponin I LESS THAN 0.02 B-Type Natriuretic Peptide 162 Result Diagram: 11/15/17 0555 11/15/17 0545 Imaging Last Impressions Chest X-Ray 11/14/171942 Signed Impressions: Service Date/Time: Tuesday, November 14, 2017 20:19 - CONCLUSION: No acute disease. Gael Roberts MD Abdomen/Pelvis CT 11/14/171942 Signed Impressions: Service Date/Time: Tuesday, November 14, 2017 21:24 - CONCLUSION: 1. Mild hiatal hernia. 2. Status post colonic surgery with a anastomosis suture in the sigmoid colon. 3. Mild patchy consolidation at the posterior medial left lower lobe. 4. 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 MD Bassam Draper VTE Risk Assessment Caprini VTE Risk Assessment: Mod/High Risk (score >= 2) Caprini Risk Assessment Model Point Value = 1 Point Value = 2 Point Value = 3 Point Value = 5 Age 41-60 Minor surgery BMI > 25 kg/m2 Swollen legs Varicose veins or History of unexplained or recurrent spontaneous Oral contraceptives or hormone replacement Sepsis (< 1 month) Serious lung disease, including pneumonia (< 1 month) Abnormal pulmonary function Acute myocardial infarction Congestive heart failure (< 1 month) History of inflammatory bowel disease Medical patient at bed rest Age 61-74 Arthroscopic surgery Major open surgery (> 45 min) Laparoscopic surgery (> 45 min) Malignancy Confined to bed (> 72 hours) Immobilizing plaster cast Central venous access Age >= 75 History of VTE Family history of VTE Factor V Leiden Prothrombin [id number] Lupus anticoagulant Anticardiolipin antibodies Elevated serum homocysteine Heparin-induced thrombocytopenia Other congenital or acquired thrombophilia Stroke (< 1 month) Elective arthroplasty Hip, pelvis, or leg fracture Acute spinal cord injury (< 1 month) Prophylaxis Regimen Total Risk Factor Score Risk Level Prophylaxis Regimen 0-1 Low Early ambulation 2 Moderate Order ONE of the following: *Sequential Compression Device (SCD) *Heparin 5000 units SQ BID 3-4 Higher Order ONE of the following medications: *Heparin 5000 units SQ TID *Enoxaparin/Lovenox 40 mg SQ daily (WT < 150 kg, CrCl > 30 mL/min) *Enoxaparin/Lovenox 30 mg SQ daily (WT < 150 kg, CrCl > 10-29 mL/min) *Enoxaparin/Lovenox 30 mg SQ BID (WT < 150 kg, CrCl > 30 mL/min) AND/OR *Sequential Compression Device (SCD) 5 or more Highest Order ONE of the following medications: *Heparin 5000 units SQ TID (Preferred with Epidurals) *Enoxaparin/Lovenox 40 mg SQ daily (WT < 150 kg, CrCl > 30 mL/min) *Enoxaparin/Lovenox 30 mg SQ daily (WT < 150 kg, CrCl > 10-29 mL/min) *Enoxaparin/Lovenox 30 mg SQ BID (WT < 150 kg, CrCl > 30 mL/min) AND *Sequential Compression Device (SCD) Assessment and Plan Problem List: (1) Symptomatic anemia ICD Codes: D64.9 - Anemia, unspecified Status: Acute Plan: Symptomatic anemia GI bleed Mr. Angel is a pleasant 86 y/o male with osteoarthritis, BPH, GERD and MGUS ( follows with Dr. Claudio). Pt was admitted to [facility] on 11/07/17 for left total knee arthroplasty with Dr. Capellan. Patient was DC to rehabilitation then patient presented to [facility] emergency department with a due to low hemoglobin. Hemoglobin on admission 5.3 --> 7.4 (11/15) 2 units PRBC given will order addition 2 units PRBCs positive occult stool in ER Protonix 40 mg IV BID IVF Hold Eliquis consult GI. Patient has had a partial colon resection related to 2 large polyps that were reportedly benign. CT abdomen pelvis reviewed and revealed mild hiatal hernia. Status post colonic surgery with an anastomosis suture in the sigmoid colon. Mild patchy consolidation at the posterior medial left lower lobe. Suspect renal parapelvic cyst. 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 Claudio outpatient DVT prophylaxis with SCDs avoid chemical DVT prophylaxes due to GI bleed (2) GI bleed ICD Codes: K92.2 - Gastrointestinal hemorrhage, unspecified Status: Acute (3) Constipation ICD Codes: K59.00 - Constipation, unspecified (4) Rash ICD Codes: R21 - Rash and other nonspecific skin eruption Assessment and Plan Patient examined. Assessment and plan formulated with Yin Alvarez PA-C. I agree with the above. recent tka left. hgb drifted down and at [facility] found to be 5. pt denies sob/dizziness to me. hasn't even had a bm. no abdomen pain. he is receiving prbc's. stool guiac positive. going for egd/colon in AM pt followed with hematology for mgus in past and has an appt. callled and updated dr Capellan. hold anticoagulant. use scd will plan back to snf once stabilized. Physician Certification 2 Midnight Certification Type: Admission for Inpatient Services Order for Inpatient Services The services are ordered in accordance with Medicare regulations or non- Medicare payer requirements, as applicable. In the case of services not specified as inpatient-only, they are appropriately provided as inpatient services in accordance with the 2-midnight benchmark. Estimated LOS (days): 3 days is the estimated time the patient will need to remain in the hospital, assuming treatment plan goals are met and no additional complications. Post-Hospital Plan: SNF Problem Qualifiers (1) GI bleed: Qualified Codes: K92.2 - Gastrointestinal hemorrhage, unspecified Yin Alvarez Nov 15, 2017 07:55 Moises Ferguson MD Nov 15, 2017 13:52
[2017-11-15 08:18] LABS: BANDS 2 % (0-6); CORRECTED NUCLEATED RBC 1 /100 WBC (0-0); LYMPHOCYTES 29 % (9-44); METAMYELOCYTES 4 % (0-1); MONOCYTES 9 % (0-8); MYELOCYTES 2 % (0-0); NEUTROPHIL # MANUAL DIFF 7.6 TH/MM3 (1.8-7.7); NUCLEATED RED BLOOD CELL 1 (0-0); POLYS (SEG NEUTROPHILS) 51 % (16-70)
[2017-11-15] MEDS ORDERED: diphenhydrAMINE HCL 2%/ZINC ACETATE 0.1% CREAM 30 APPLIC/30 GM TUBE TOPICAL ONE (08:45)
[2017-11-15] MEDS ORDERED: PANTOPRAZOLE SOD 20 MG DELAYED RELEASE TAB PO SCH (09:00)
--- NOTE | 2017-11-15 09:47 | PD.CONS ---
HPI History of Present Illness This is a 87 year old male with hx anemia, monoclonal gammopathy who presented to the ER for low hgb 4.7, sent from [facility] rehab. He is s/p knee replacement . Hgb on admission was 5.3. Admits 1 episode black stool after his surgery and none since. He has been constipated since his surgery. Denies red blood in stool, black stool currently, abd pain, n/v. Last colonoscopy [address] Olivas with no abnormal findings. He had partial colectomy 2000 for large polyp removal. He had EGD 10y in [place] and can recall no further details. He takes eliquis, last had yesterday. Denies hx liver problems, gastric ulcers , GIB. (Nusrat Nelson) PFSH Past Medical History large colon polyps monoclonal gammopathy Past Surgical History partial colectomy appendectomy (Nusrat Nelson) Coded Allergies: No Known Allergies (Unverified , 10/31/17) Family History denies Social History 2 cocktails daily denies tobacco (Nusrat Nelson) Review of Systems Constitutional: DENIES: Fever Endocrine: DENIES: Polydipsia Eyes: DENIES: Blurred vision Ears, nose, mouth, throat: DENIES: Hearing loss Respiratory: DENIES: Cough Cardiovascular: DENIES: Chest pain Gastrointestinal: COMPLAINS OF: Constipation, DENIES: Abdominal pain, Black stools, Bloody stools, Nausea, Vomiting Genitourinary: DENIES: Hematuria Musculoskeletal: DENIES: Muscle aches Integumentary: DENIES: Abnormal pigmentation Hematologic/lymphatic: COMPLAINS OF: Bruising Immunologic/allergic: DENIES: Eczema Neurologic: COMPLAINS OF: Abnormal gait (s/p knee replacement left) Psychiatric: DENIES: Confusion (Nusrat Nelson) GI Exam Vitals I&O Vital Signs Date Time Temp Pulse Resp B/P (MAP) Pulse Ox O2 Delivery O2 Flow Rate FiO2 11/15/17 07:49 98.3 86 18 122/58 (79) 95 11/15/17 05:54 98.3 89 18 125/57 99 11/15/17 03:21 98.8 78 18 104/51 98 11/15/17 02:58 98.9 83 16 117/56 96 11/15/17 02:53 98.9 86 16 117/56 96 11/15/17 02:39 98.9 83 16 100/54 97 11/14/17 23:20 98.4 85 16 109/56 98 11/14/17 23:05 98.3 88 14 119/57 97 11/14/17 19:49 18 97 Room Air 11/14/17 19:46 98.1 95 16 123/60 (81) 97 I/O 11/14/17 11/14/17 11/14/17 11/15/17 11/15/17 11/15/17 07:00 15:00 23:00 07:00 15:00 23:00 Intake Total 800 ml Output Total 350 ml Balance 450 ml Intake Packed Cells 800 ml Output Urine Total 350 ml Imaging Last Impressions Chest X-Ray 11/14/171942 Signed Impressions: Service Date/Time: Tuesday, November 14, 2017 20:19 - CONCLUSION: No acute disease. Gael Roberts MD Abdomen/Pelvis CT 11/14/171942 Signed Impressions: Service Date/Time: Tuesday, November 14, 2017 21:24 - CONCLUSION: 1. Mild hiatal hernia. 2. Status post colonic surgery with a anastomosis suture in the sigmoid colon. 3. Mild patchy consolidation at the posterior medial left lower lobe. 4. 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 Gael Roberts MD Laboratory Test 11/14/17 19:45 11/15/17 05:45 11/15/17 05:55 White Blood Count 13.4 TH/MM3 12.8 TH/MM3 Red Blood Count 1.32 MIL/MM3 1.83 MIL/MM3 Hemoglobin 5.3 GM/DL 7.4 GM/DL Hematocrit 14.8 % 19.8 % Mean Corpuscular Volume 112.3 FL 108.1 FL Mean Corpuscular Hemoglobin 40.1 PG 40.4 PG Mean Corpuscular Hemoglobin Concent 35.7 % 37.4 % Red Cell Distribution Width 14.4 % 16.1 % Platelet Count 499 TH/MM3 538 TH/MM3 Mean Platelet Volume 8.1 FL 7.9 FL Neutrophils (%) (Auto) 72.9 % 68.3 % Lymphocytes (%) (Auto) 15.4 % 18.3 % Monocytes (%) (Auto) 9.6 % 10.7 % Eosinophils (%) (Auto) 1.5 % 2.1 % Basophils (%) (Auto) 0.6 % 0.6 % Neutrophils # (Auto) 9.7 TH/MM3 8.7 TH/MM3 Lymphocytes # (Auto) 2.1 TH/MM3 2.3 TH/MM3 Monocytes # (Auto) 1.3 TH/MM3 1.4 TH/MM3 Eosinophils # (Auto) 0.2 TH/MM3 0.3 TH/MM3 Basophils # (Auto) 0.1 TH/MM3 0.1 TH/MM3 CBC Comment AUTO DIFF AUTO DIFF Differential Total Cells Counted 100 100 Neutrophils % (Manual) 55 % 51 % Band Neutrophils % 1 % 2 % Lymphocytes % 20 % 29 % Monocytes % 11 % 9 % Eosinophils % 2 % 3 % Basophils % 1 % Neutrophils # (Manual) 8.8 TH/MM3 7.6 TH/MM3 Metamyelocytes 5 % 4 % Myelocytes 3 % 2 % Promyelocytes 2 % Differential Comment FINAL DIFF MANUAL FINAL DIFF MANUAL Toxic Granulation 1+ Dohle Bodies PRESENT Platelet Estimate HIGH HIGH Platelet Morphology Comment NORMAL NORMAL Polychromasia 3.2 % 2.0 % Spherocytes 2+ Ovalocytes 1+ Rouleau PRESENT Hematology Comments Prothrombin Time 11.1 SEC Prothromb Time International Ratio 1.1 RATIO Activated Partial Thromboplast Time 21.9 SEC Blood Urea Nitrogen 27 MG/DL 22 MG/DL Creatinine 1.57 MG/DL 1.48 MG/DL Random Glucose 114 MG/DL 97 MG/DL Total Protein 6.5 GM/DL 6.3 GM/DL Albumin 2.4 GM/DL 2.5 GM/DL Calcium Level 7.9 MG/DL 8.1 MG/DL Magnesium Level 2.4 MG/DL Alkaline Phosphatase 214 U/L 181 U/L Aspartate Amino Transf (AST/SGOT) 86 U/L 57 U/L Alanine Aminotransferase (ALT/SGPT) 88 U/L 75 U/L Total Bilirubin 1.1 MG/DL 1.0 MG/DL Sodium Level 133 MEQ/L 137 MEQ/L Potassium Level 4.8 MEQ/L 4.7 MEQ/L Chloride Level 100 MEQ/L 102 MEQ/L Carbon Dioxide Level 26.1 MEQ/L 27.2 MEQ/L Anion Gap 7 MEQ/L 8 MEQ/L Estimat Glomerular Filtration Rate 42 ML/MIN 45 ML/MIN Total Creatine Kinase 383 U/L Creatine Kinase MB 1.7 NG/ML Creatine Kinase MB % 0.4 % Troponin I LESS THAN 0.02 NG/ML B-Type Natriuretic Peptide 162 PG/ML Nucleated Red Blood Cells 1 /100 WBC Physical Examination HEENT: PERRL; normocephalic; atraumatic; no jaundice. CHEST: CTA CARDIAC: RRR ABDOMEN: Soft,protuberant, nontender; no hepatosplenomegaly; bowel sounds are present in all four quadrants. EXTREMITIES: No clubbing, cyanosis, or edema. left knee incision approximated with glue SKIN: Normal; no rash; no jaundice. WEB PRODUCER: No focal deficits; alert and oriented times three. (Nusrat Nelson) Assessment and Plan Plan ASSESSMENT - anemia, ? melena - hb 5.3 on admission. macrocytic. hx monoclonal gammopathy , followed by Dr Claudio. admits isolated episode black stool 1 week ago but none since. last colonoscopy 2 y ago, EGD 10y ago, no abnormal findings recalled. heme pos stool. PLAN - EGD and colonoscopy in am - obtain consent - clears today - GoLytely - monitor labs - transfuse as needed - hold eliquis - if EGD and colonoscopy negative, consider hematology consult - further recs to follow pt seen by myself and Dr Hancock and this note is on her behalf (Nusrat Nelson) Physician Comments seen, examined agree with above (Lola Hancock MD) Nusrat Nelson Nov 15, 2017 09:47 Lola Hancock MD Nov 15, 2017 20:44
[2017-11-15] MEDS: PANTOPRAZOLE SODIUM 40 MG VIAL IV PUSH SCH ×2 (10:37→20:53)
[2017-11-15] MEDS: SODIUM CHLOR 0.9% 1000 ML INJ 1,000 ML IV SCH ×2 (10:39→21:57)
[2017-11-15] MEDS ORDERED: SODIUM CHLOR 0.9% 250 ML INJ 250 ML IV ONE (11:15)
[2017-11-15] MEDS ORDERED: FUROSEMIDE 20 MG/2 ML VIAL IV PUSH ONE (11:15)
[2017-11-15] MEDS: ACETAMINOPHEN/HYDROcodone 325 MG/7.5 MG TAB PO PRN (11:54)
[2017-11-15] MEDS ORDERED: diphenhydrAMINE HCL 2%/ZINC ACETATE 0.1% CREAM 30 APPLIC/30 GM TUBE TOPICAL PRN (13:00)
--- NOTE | 2017-11-15 15:16 | EKG ---
Date Performed: 11/14/2017 Time Performed: 19:41:38 PTAGE: 87 years EKG: Sinus rhythm WITH FIRST DEGREE AV BLOCK ABNORMAL ECG INTERPRETATION BASED ON A DEFAULT AGE OF 40 YEARS Since the PREVIOUS TRACING , no significant change noted PREVIOUS TRACIN04/21/2000 09.29 DOCTOR: Isaías Ray Interpretating Date/Time 11/15/2017 15:13:31
[2017-11-15] MEDS ORDERED: PEG (High)/E-LYTE SOLN 4000 ML BTL PO ONE (16:15)
[2017-11-15] MEDS: TAMSULOSIN HCL 0.4 MG CAP PO SCH (20:53)
[2017-11-16] VITALS (8 sets, daily range): BP systolic 112–136; BP diastolic 56–65; PULSE 69–82; RESP 17–20; TEMP 97.7–98.4; O2SAT 93–96
[2017-11-16] MEDS: ACETAMINOPHEN/HYDROcodone 325 MG/7.5 MG TAB PO PRN (00:05)
[2017-11-16 06:23] LABS: AUTOMATED NEUTROPHIL # 7.2 TH/MM3 (1.8-7.7); BASOPHIL % 0.4 % (0.0-2.0); EOSINOPHIL # 0.2 TH/MM3 (0-0.4); HEMATOCRIT 23.7 % (39.0-51.0); HEMOGLOBIN 8.7 GM/DL (13.0-17.0); LYMPH % 15.2 % (9.0-44.0); LYMPHOCYTE # 1.5 TH/MM3 (1.0-4.8); MEAN CELL VOLUME 101.8 FL (80.0-100.0); MEAN CORPUSCULAR HEMOGLOBIN 37.4 PG (27.0-34.0); MEAN PLATELET VOLUME 7.4 FL (7.0-11.0); MONO % 9.7 % (0.0-8.0); NEUT % 72.7 % (16.0-70.0); PLATELET COUNT 432 TH/MM3 (150-450); RED BLOOD COUNT 2.32 MIL/MM3 (4.50-5.90); RED CELL DISTRIBUTION WIDTH 18.1 % (11.6-17.2)
[2017-11-16 06:26] LABS: MEAN CORPUSCULAR HGB CONC 36.8 % (32.0-36.0)
[2017-11-16 07:36] LABS: BANDS 2 % (0-6); BLASTS 1 % (0-0); LYMPHOCYTES 17 % (9-44); METAMYELOCYTES 2 % (0-1); MONOCYTES 10 % (0-8); MYELOCYTES 2 % (0-0); NEUTROPHIL # MANUAL DIFF 7.1 TH/MM3 (1.8-7.7); POLYS (SEG NEUTROPHILS) 65 % (16-70)
[2017-11-16 07:43] LABS: TOXIC GRANULATION 1+ (NORMAL)
[2017-11-16] MEDS: SODIUM CHLOR 0.9% 1000 ML INJ 1,000 ML IV SCH ×2 (09:24→20:45)
[2017-11-16] MEDS: PANTOPRAZOLE SODIUM 40 MG VIAL IV PUSH SCH ×2 (09:25→20:45)
--- NOTE | 2017-11-16 09:49 | HHI.PR ---
Subjective Remarks pt and daughter report the stool coming out with bowel prep looks black and tarry. Objective Vitals heart reg lung cta abd s/nt ext no edema Vital Signs Date Time Temp Pulse Resp B/P (MAP) Pulse Ox O2 Delivery O2 Flow Rate FiO2 11/16/17 08:00 97.9 69 17 126/56 (79) 95 11/16/17 06:35 98.3 70 18 131/61 (84) 94 11/16/17 05:10 97.7 77 20 136/63 (87) 94 11/16/17 03:41 80 11/16/17 00:00 98.2 79 18 112/58 (76) 93 11/15/17 23:43 69 11/15/17 22:15 97.4 75 20 167/67 96 11/15/17 20:00 98.3 72 18 144/69 (94) 94 11/15/17 19:47 77 11/15/17 19:07 97.7 75 18 137/63 99 11/15/17 16:00 98.0 66 17 126/63 (84) 95 11/15/17 16:00 67 11/15/17 15:52 97.8 76 20 111/59 (76) 95 11/15/17 15:42 97.8 76 20 111/59 95 11/15/17 15:23 98.1 69 18 125/60 96 11/15/17 14:40 98.1 69 18 125/60 (81) 96 11/15/17 14:28 73 11/15/17 11:27 99.0 81 18 120/57 (78) 94 Result Diagram: 11/16/17 0440 11/15/17 0545 Imaging Last Impressions Chest X-Ray 11/14/171942 Signed Impressions: Service Date/Time: Tuesday, November 14, 2017 20:19 - CONCLUSION: No acute disease. Gael Roberts MD Abdomen/Pelvis CT 11/14/171942 Signed Impressions: Service Date/Time: Tuesday, November 14, 2017 21:24 - CONCLUSION: 1. Mild hiatal hernia. 2. Status post colonic surgery with a anastomosis suture in the sigmoid colon. 3. Mild patchy consolidation at the posterior medial left lower lobe. 4. 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 Gael Roberts MD A/P Problem List: (1) Symptomatic anemia ICD Codes: D64.9 - Anemia, unspecified Status: Acute Plan: Symptomatic anemia GI bleed Mr. Angel is a pleasant 86 y/o male with osteoarthritis, BPH, GERD and MGUS ( follows with Dr. Claudio). Pt was admitted to [facility] on 11/07/17 for left total knee arthroplasty with Dr. Capellan. Patient was DC to rehabilitation then patient presented to [facility] emergency department with a due to low hemoglobin. CT abdomen pelvis reviewed and revealed mild hiatal hernia. Status post colonic surgery with an anastomosis suture in the sigmoid colon. Mild patchy consolidation at the posterior medial left lower lobe. Suspect renal parapelvic cyst. Chest x-ray reveals no acute disease Hemoglobin on admission 5.3 - 4 units PRBC given positive occult stool in ER Protonix 40 mg IV BID IVF Hold Eliquis consulted GI. Patient has had a partial colon resection related to 2 large polyps that were reportedly benign. egd/colon pending for today. 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 Claudio outpatient DVT prophylaxis with SCDs avoid chemical DVT prophylaxes due to GI bleed (2) GI bleed ICD Codes: K92.2 - Gastrointestinal hemorrhage, unspecified Status: Acute (3) Constipation ICD Codes: K59.00 - Constipation, unspecified (4) Rash ICD Codes: R21 - Rash and other nonspecific skin eruption Problem Qualifiers (1) GI bleed: Qualified Codes: K92.2 - Gastrointestinal hemorrhage, unspecified Moises Ferguson MD Nov 16, 2017 09:49
[2017-11-16] MEDS ORDERED: CHLORHEXIDINE GLUCONATE 2 % 1 PACK (2 CLOTHS) TOPICAL PRN (10:30)
[2017-11-16] MEDS ORDERED: LACTATED RINGER'S 1000 ML IV PRN (10:30)
[2017-11-16] MEDS ORDERED: POVIDONE IODINE 5% (ANTISEPSIS KIT) 4 APPLICATIONS EACH NARE PRN (10:30)
[2017-11-16] MEDS ORDERED: SODIUM CHLORID 0.9% 500 ML IV PRN (10:30)
[2017-11-16] MEDS ORDERED: METOPROLOL TARTRATE 25 MG TAB PO PRN (10:30)
[2017-11-16] MEDS ORDERED: PROPOFOL 200 MG/20 ML AMP IV ONE (12:00)
[2017-11-16] MEDS ORDERED: LIDOCAINE HCL 1% PF 5 ML SYRINGE OTHER ONE (12:00)
--- NOTE | 2017-11-16 13:34 | GIPROC ---
[facility] [address] [facility]. [facility], [id number] EGD PROCEDURE REPORT EXAM DATE: 11/16/2017 PATIENT NAME: Chris Angel MR #: [id number] BIRTHDATE: 1930 ATTENDING: Lola Hancock MD ORDER #: [id number] ROOFING PLANT SUPERVISOR: Wayne Silver and Aida Harrison STATUS: inpatient INDICATIONS: The patient is a 87 yr old male here for an EGD due to anemia severe PROCEDURE PERFORMED: EGD w/ biopsy MEDICATIONS: None and Per Anesthesia. TOPICAL ANESTHETIC: none CONSENT: The patient understands the risks and benefits of the procedure and understands that these risks include, but are not limited to: sedation, allergic reaction, infection, perforation and/or bleeding. Alternative means of evaluation and treatment include, among others: physical exam, x-rays, and/or surgical intervention. The patient elects to proceed with this endoscopic procedure. medical equipment was checked for proper function. Hand hygiene and appropriate measures for infection prevention was taken. After the risks, benefits and alternatives of the procedure were thoroughly explained, Informed consent was verified, confirmed and timeout was successfully executed by the treatment team. The patient was anesthetized with topical anesthesia and the [id number] (Pedi C) endoscope was introduced through the mouth and advanced to the second portion of the duodenum. Retroflexed views revealed a hiatal hernia The gastroscope was then slowly withdrawn and removed. Duodenum normal-biopsy gastritis antrum-biopsy lucero's esophagus-biopsy 30,28 cm large hiatal hernia-10 cm. ADVERSE EVENTS: There were no complications. IMPRESSIONS: 1. Duodenum normal-biopsy gastritis antrum-biopsy lucero's esophagus-biopsy 30,28 cm large hiatal hernia-10 cm 2. Retroflexed views revealed a hiatal hernia RECOMMENDATIONS: 1. Await biopsy results. Biopsy results will not be ready for 7-10 days. If you don't hear from us in two weeks, call our office for biopsy results. 2. Anti-reflux regimen 3. Continue PPI 4. Start PPI 5. Avoid NSAIDS 6. Hematology consult PATIENT CONDITION: stable DISPOSITION: Inpatient REPEAT EXAM: Return 3 years EGD Lola Hancock MD eSigned: Lola Hancock MD 11/16/2017 1:34 PM cc: PATIENT NAME: Chris Angel MR#: [id number]
--- NOTE | 2017-11-16 13:38 | GIPROC ---
[facility] [address] [facility]. [facility], [address] COLONOSCOPY PROCEDURE REPORT EXAM DATE: 11/16/2017 PATIENT NAME: Chris Angel MR #: [id number] BIRTHDATE: 1930 ENDOSCOPIST: Lola Hancock MD ORDER #: [id number] MOTORIZED SQUAD CAPTAIN: Wayne Silver and Aida Harrison STATUS: inpatient INDICATIONS: The patient is a 87 yr old male here for a colonoscopy due to anemia, history of polyps PROCEDURE PERFORMED: Colonoscopy with biopsy MEDICATIONS: None and Per Anesthesia. PREP QUALITY: suboptimal PREP TYPE:Other: ESTIMATED BLOOD LOSS: None CONSENT: The patient understands the risks and benefits of the procedure and understands that these risks include, but are not limited to: sedation, allergic reaction, infection, perforation and/or bleeding. Alternative means of evaluation and treatment include, among others: physical exam, x-rays, and/or surgical intervention. The patient elects to proceed with this endoscopic procedure. medical equipment was checked for proper function. Hand hygiene and appropriate measures for infection prevention was taken. After the risks, benefits and alternatives of the procedure were thoroughly explained, Informed consent was verified, confirmed and timeout was successfully executed by the treatment team. A digital exam revealed external hemorrhoids The Pentax [id number] endoscope was introduced through the anus and advanced to the cecum, which was identified by both the appendix and ileocecal valve. The instrument was then slowly withdrawn as the colon was fully examined. COLON FINDINGS: Polyp rectum semisolid stool brown -agressive washing-no bleeding noted. Retroflexed views revealed internal hemorrhoids and Retroflexed views revealed small internal hemorrhoids The scope was then completely withdrawn from the patient and the procedure terminated. PROCEDURE WITHDRAWAL TIME:6minutes ADVERSE EVENTS: There were no complications. IMPRESSIONS: 1. Polyp rectum semisolid stool brown -agressive washing-no bleeding noted 2. Retroflexed views revealed internal hemorrhoids 3. Retroflexed views revealed small internal hemorrhoids 4. Revealed external hemorrhoids RECOMMENDATIONS: 1. Await biopsy results. Biopsy results will not be ready for 7-10 days. If you don't hear from us in two weeks, call our office for results. 2. Benefiber 2 tsp daily 3. Probiotics from any [facility] or health food store 4. Capsule endoscopy advance diet hematology eval ok to restart anticoagulation from gi point RECALL: Return 3 months Colonoscopy Lola Hancock MD eSigned: Lola Hancock MD 11/16/2017 1:37 PM cc: PATIENT NAME: Chris Angel MR#: [id number]
[2017-11-16 16:40] LABS: % SATURATION IRON PROFILE 26.8 % (20-50); IRON (FE) 80 MCG/DL (65-175); TOTAL IRON BINDING CAPACITY 298 MCG/DL (250-450)
[2017-11-16 19:25] LABS: FOLATE GREATER THAN 20.0 NG/ML (3.1-17.5)
[2017-11-16] MEDS: ACETAMINOPHEN 500 MG CPLT PO PRN (20:46)
[2017-11-16] MEDS: TAMSULOSIN HCL 0.4 MG CAP PO SCH (20:46)
[2017-11-16 21:41] LABS: BICARBONATE 24.5 MEQ/L (21.0-32.0); BLOOD UREA NITROGEN 18 MG/DL (7-18); CALCIUM 7.4 MG/DL (8.5-10.1); CHLORIDE 106 MEQ/L (98-107); CREATININE 1.35 MG/DL (0.60-1.30); GLOMERULAR FILTRATION RATE 50 ML/MIN (>89); GLUCOSE,RANDOM 123 MG/DL (74-106); SODIUM (NA) 138 MEQ/L (136-145)
[2017-11-16 22:17] LABS: CALCIUM-PROTEIN CORRECTED 7.9 MG/DL (8.5-10.1); TOTAL PROTEIN 6.1 GM/DL (6.4-8.2)
[2017-11-17] VITALS: BP 133/61; PULSE 69; PULSE 75; RESP 17; TEMP 97.9; O2SAT 96
--- NOTE | 2017-11-17 | MB ---
cc: Debbie Claudio MD DATE: 11/16/2017 REASON FOR CONSULTATION: Consult requested by Dr. Hancock for evaluation of anemia. HISTORY OF PRESENT ILLNESS: Chris is a pleasant 87-year-old male. He is well known to me for monoclonal gammopathy of unknown significance. I last saw him 2 years ago. He lost for followup. The patient recently underwent a left knee surgery by Dr. Parker on 11/07. He did well with the surgery and he was discharged to rehabilitation. He was discharged on Eliquis after the knee surgery for prevention of DVT. The patient stated that he noticed extreme weakness, tiredness, fatigue and black tarry stools. A CBC was checked at the rehab and his hemoglobin was reported to be very low at 4.7. He was rushed to the emergency room. When he arrived in the emergency room 2 days ago CBC showed white count 13.4, hemoglobin 5.3, MCV was 112 and platelet count was 499. The patient was given blood transfusion and his hemoglobin yesterday improved to 7.4. He had received 2 units of blood transfusion and today his hemoglobin has improved to 8.7. He underwent a GI workup with Dr. Hancock. The colonoscopy showed a polyp in the rectum. No bleeding noted. He has internal hemorrhoids, which were not bleeding. The upper endoscopy also failed to show any bleeding. Random biopsies of the duodenum and stomach were obtained. 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 Given that the GI procedure did not reveal the cause of the GI bleeding Dr. Hancock is asking for hematology consult. The patient states that he is feeling better after the blood transfusion. His sister who works with the local urology group was present. She also confirm that his stools were dark color. Even when he had the bowel preparation for colonoscopy the material was mixed with dark blood. He had physical therapy and he was able to get up and sit on the chair. He denies any nausea or vomiting. He is complaining of swelling and pain in the left knee with where he had the surgery. He had a CAT scan of the abdomen and pelvis, which does not show any evidence of retroperitoneal bleeding. He has a mild hiatal hernia and evidence of colonic surgery with anastomosis suture in the sigmoid colon. The chest x-ray is negative. PAST MEDICAL HISTORY: IgM monoclonal gammopathy of unknown significance, history of iron deficiency anemia due to regular blood donation. History of arthritis, basal cell skin cancer, BPH, colonic polyp, progressive gastroesophageal reflux disease, osteoporosis. PAST SURGICAL HISTORY: Appendectomy, for benign polyp, tonsillectomy, colonoscopy, vasectomy. ALLERGIES: NONE. FAMILY HISTORY: None for malignancy. SOCIAL HISTORY: The patient does not smoke cigarettes, but he continues to drink alcohol. His daughter stated that he drinks 2 glasses every day. PHYSICAL EXAMINATION: GENERAL: A well-developed, well-nourished white male, in no apparent distress. VITAL SIGNS: Temperature 98.3, heart rate of 77, blood pressure is 118/59, O2 saturation 94%. HEENT: PERRLA. EOMI, anicteric. No oral lesions noted. NECK: No lymphadenopathy noted. LUNGS: Clear. No wheezing, rhonchi or rales. HEART: Regular rate and rhythm. ABDOMEN: Soft, nontender. No hepatosplenomegaly. EXTREMITIES: Swelling and redness of the left knee noted. NEUROLOGIC: Awake, alert, oriented x 3. SKIN: No significant lesions noted. ASSESSMENT: 1. Severe significant anemia due to gastrointestinal bleeding with negative gastrointestinal workup so far. 2. 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 3. Recent left knee surgery and was placed on Eliquis. 4. Chronic renal insufficiency with a GFR of 42, then he was admitted. PLAN: I have reviewed his available records, and I had an extensive discussion with the patient and his daughter regarding the anemia. His hemoglobin was 12.3 on 10/31, that was pre blood test prior to the knee surgery. He underwent surgery on 11/07 and a day after the surgery on 11/08, his hemoglobin dropped to 9.4. He was discharged to home on 11/10 and his hemoglobin at that time was low at 8.0. So he had dropped 4 grams of hemoglobin since the knee surgery. Four days later, on 11/14 he came back to the emergency room with GI bleeding and his hemoglobin dropped to 5.3. The patient had received 4 units of blood transfusion and his hemoglobin has improved to 8.7. Clearly his anemia is due to surgical blood loss as well as GI bleeding, which I suspect is from Eliquis. The patient did not remember the dose of the Eliquis that he was prescribed or was taking. His creatinine is elevated and GFR is low at 42. Suspect that due to the renal insufficiency, he may have bleeding from the Eliquis. The Eliquis has been stopped. The GI workup done by Dr. Hancock failed to reveal the source. I have recommended to check the B12 and folate given that the MCV was elevated at 112 when he came in to the emergency room. No iron studies were done when he presented to the emergency room. The patient already has received 4 units of blood transfusion. I had called the lab and discussed with master control technician Barbara, to run the iron studies, iron profile and ferritin on the specimen, which was drawn in the emergency room on 11/14 prior to getting blood transfusion. We discussed that he could resume Eliquis at a lower dose at 2.5 mg twice a day, which is renal adjusted dose for prevention of DVT. Daughter wanted physical therapist to come by again tomorrow and help him before sending the patient back to SNF. We will ask the physical therapist to come by tomorrow also. Further recommendation based on his hospital stay and the above test results, which have been ordered and the results are still pending. Thank you Dr. Hancock for asking my opinion. Aristeo Claudio MD AJDavis/rt , 11:14 PM , 11:59 PM
[2017-11-17 04:00] VITALS: BP 131/63; PULSE 62; PULSE 69; RESP 17; TEMP 97.2; O2SAT 97
[2017-11-17 08:00] VITALS: PULSE 77
[2017-11-17 08:19] VITALS: BP 156/65; PULSE 72; RESP 18; TEMP 98.1; O2SAT 96
[2017-11-17 08:23] VITALS: BP 156/60; PULSE 72; RESP 18; TEMP 98.1; O2SAT 96
[2017-11-17] MEDS ORDERED: DIAZ5TAB PO (08:54)
[2017-11-17] MEDS ORDERED: HYDR-3580 PO (08:54)
--- NOTE | 2017-11-17 08:54 | HHI.DCPOC ---
Discharge Care Plan Diagnosis: (1) GI bleed (2) Anemia (3) Osteoarthritis of left knee Goals to Promote Your Health * To prevent worsening of your condition and complications * To maintain your health at the optimal level Directions to Meet Your Goals Take your medications as prescribed Follow your dietary instruction Follow activity as directed Keep your appointments as scheduled Take your immunizations and boosters as scheduled If your symptoms worsen call your PCP, if no PCP go to Urgent Care Center or Emergency Room Smoking is Dangerous to Your Health. Avoid second hand smoke Call the 24-hour hour crisis hotline for domestic abuse at Moises Ferguson MD Nov 17, 2017 08:54
--- NOTE | 2017-11-17 08:57 | HHI.DS ---
Discharge Summary Admission Date Nov 14, 2017 at 22:16 Discharge Date: Nov 17, 2017 Admitting Diagnosis Symptomatic Anemia, GI bleed (1) Symptomatic anemia Diagnosis: Principal ICD Codes: D64.9 - Anemia, unspecified Status: Acute (2) GI bleed ICD Codes: K92.2 - Gastrointestinal hemorrhage, unspecified Status: Acute (3) Constipation Diagnosis: Secondary ICD Codes: K59.00 - Constipation, unspecified (4) Rash Diagnosis: Secondary ICD Codes: R21 - Rash and other nonspecific skin eruption Brief History Mr. Angel is a pleasant 86 y/o male with osteoarthritis, BPH, GERD and MGUS ( follows with Dr. Claudio). Pt was admitted to [facility] on 11/07/17 for left total knee arthroplasty with Dr. Capellan. Patient was DC to rehabilitation then patient presented to [facility] emergency department with a due to low hemoglobin. Per report the CBC at rehab showed a hemoglobin reportedly of 4.7. He reports having some lightheaded sensation with standing and generalized weakness. Patient endorses some dark stool. He denies having any bright red blood in his stool. He reports that he last had a colonoscopy approximately a year ago. He has had a partial colon resection related to 2 large polyps that were reportedly benign. He denies having any abdominal pain. He denies having any chest pain, chest pressure, or shortness of breath, fevers, cough, congestion, neck pain, vomiting, diarrhea, urinary symptoms, or neurologic symptoms. The patient reports that he has not had a good appetite at the rehabilitation facility. He reports that he is also had constipation. His last bowel movement was reportedly 5 days ago. The patient is currently on Eliquis for DVT prevention CBC/BMP: 11/16/17 0440 11/16/172048 Significant Findings Laboratory Tests Test 11/14/17 19:45 11/15/17 05:45 11/15/17 05:55 11/16/17 04:40 White Blood Count 13.4 TH/MM3 (4.0-11.0) 12.8 TH/MM3 (4.0-11.0) Red Blood Count 1.32 MIL/MM3 (4.50-5.90) 1.83 MIL/MM3 (4.50-5.90) 2.32 MIL/MM3 (4.50-5.90) Hemoglobin 5.3 GM/DL (13.0-17.0) 7.4 GM/DL (13.0-17.0) 8.7 GM/DL (13.0-17.0) Hematocrit 14.8 % (39.0-51.0) 19.8 % (39.0-51.0) 23.7 % (39.0-51.0) Mean Corpuscular Volume 112.3 FL (80.0-100.0) 108.1 FL (80.0-100.0) 101.8 FL (80.0-100.0) Mean Corpuscular Hemoglobin 40.1 PG (27.0-34.0) 40.4 PG (27.0-34.0) 37.4 PG (27.0-34.0) Platelet Count 499 TH/MM3 (150-450) 538 TH/MM3 (150-450) Neutrophils (%) (Auto) 72.9 % (16.0-70.0) 72.7 % (16.0-70.0) Monocytes (%) (Auto) 9.6 % (0.0-8.0) 10.7 % (0.0-8.0) 9.7 % (0.0-8.0) Neutrophils # (Auto) 9.7 TH/MM3 (1.8-7.7) 8.7 TH/MM3 (1.8-7.7) Monocytes # (Auto) 1.3 TH/MM3 (0-0.9) 1.4 TH/MM3 (0-0.9) 1.0 TH/MM3 (0-0.9) Monocytes % 11 % (0-8) 9 % (0-8) 10 % (0-8) Neutrophils # (Manual) 8.8 TH/MM3 (1.8-7.7) Metamyelocytes 5 % (0-1) 4 % (0-1) 2 % (0-1) Myelocytes 3 % (0-0) 2 % (0-0) 2 % (0-0) Promyelocytes 2 % (0-0) Toxic Granulation 1+ (NORMAL) 1+ (NORMAL) Dohle Bodies PRESENT (NONE SEEN) Platelet Estimate HIGH (NORMAL) HIGH (NORMAL) HIGH (NORMAL) Polychromasia 3.2 % (0.0-1.9) 2.0 % (0.0-1.9) Spherocytes 2+ (NORMAL) Ovalocytes 1+ (NORMAL) Rouleau PRESENT (NORMAL) Activated Partial Thromboplast Time 21.9 SEC (24.3-30.1) Blood Urea Nitrogen 27 MG/DL (7-18) 22 MG/DL (7-18) Creatinine 1.57 MG/DL (0.60-1.30) 1.48 MG/DL (0.60-1.30) Random Glucose 114 MG/DL (74-106) Albumin 2.4 GM/DL (3.4-5.0) 2.5 GM/DL (3.4-5.0) Calcium Level 7.9 MG/DL (8.5-10.1) 8.1 MG/DL (8.5-10.1) Alkaline Phosphatase 214 U/L (45-117) 181 U/L (45-117) Aspartate Amino Transf (AST/SGOT) 86 U/L (15-37) 57 U/L (15-37) Alanine Aminotransferase (ALT/SGPT) 88 U/L (12-78) Total Bilirubin 1.1 MG/DL (0.2-1.0) Sodium Level 133 MEQ/L (136-145) Estimat Glomerular Filtration Rate 42 ML/MIN (>89) 45 ML/MIN (>89) Total Creatine Kinase 383 U/L (39-308) Troponin I LESS THAN 0.02 NG/ML B-Type Natriuretic Peptide 162 PG/ML (0-100) Total Protein 6.3 GM/DL (6.4-8.2) Mean Corpuscular Hemoglobin Concent 37.4 % (32.0-36.0) 36.8 % (32.0-36.0) Nucleated Red Blood Cells 1 /100 WBC (0-0) Red Cell Distribution Width 18.1 % (11.6-17.2) Blastocytes 1 % (0-0) Test 11/16/17 20:49 Creatinine 1.35 MG/DL (0.60-1.30) Random Glucose 123 MG/DL (74-106) Total Protein 6.1 GM/DL (6.4-8.2) Calcium Level 7.4 MG/DL (8.5-10.1) Estimat Glomerular Filtration Rate 50 ML/MIN (>89) Protein Corrected Calcium 7.9 MG/DL (8.5-10.1) Vitamin B12 Level GREATER THAN 2000 PG/ML Folate GREATER THAN 20.0 NG/ML Hospital Course (1) Symptomatic anemia Symptomatic anemia GI bleed Mr. nAgel is a pleasant 86 y/o male with osteoarthritis, BPH, GERD and MGUS ( follows with Dr. Claudio). Pt was admitted to [facility] on 11/07/17 for left total knee arthroplasty with Dr. Capellan. Patient was DC to rehabilitation then patient presented to [facility] emergency department with a due to low hemoglobin. CT abdomen pelvis reviewed and revealed mild hiatal hernia. Status post colonic surgery with an anastomosis suture in the sigmoid colon. Mild patchy consolidation at the posterior medial left lower lobe. Suspect renal parapelvic cyst. Chest x-ray reveals no acute disease Hemoglobin on admission 5.3 - 4 units PRBC given positive occult stool in ER Protonix 40 mg IV BID IVF were given Hold Eliquis consulted GI. Patient has had a partial colon resection related to 2 large polyps that were reportedly benign in past. EGD/Colonoscopy 11/16....gastritis/barretts/large HH. rectal polyp and int/ext hemorrhoids. Pt seen by hem/onc who feels anemia is related to surgery and gi losses from eliquis pt eager for d/c back to snf. will dc and use scd's. 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 Claudio outpatient Pt Condition on Discharge: Stable Discharge Disposition: Discharge to SNF Discharge Instructions DIET: Follow Instructions for: As Tolerated, No Restrictions Activities you can perform: Regular-No Restrictions Follow up Referrals: Orthopedics - 1 Week with Aurea Capellan MD Continued Medications: Cyanocobalamin (Vitamin B12) 500 Mcg Tab 1000 MCG PO DAILY, #1 BOTTLE Diazepam (Diazepam) 5 Mg Tab 5 MG PO TID PRN for ANXIETY, #20 TAB 0 Refills (This prescription has been renewed) Folic Acid (Folic Acid) 0.8 Mg Tab 2000 MCG PO DAILY for Nutritional Supplement, TAB 0 Refills Hydrocodone/Acetaminophen (Hydrocodone-Acetamin 7.5-325) 7.5 Mg-325 Mg Tablet 1 TAB PO Q4H PRN for pain, #20 TAB 0 Refills (This prescription has been renewed ) Omeprazole (Omeprazole) 20 Mg Tab 20 MG PO DAILY, #30 TAB 0 Refills Tamsulosin (Tamsulosin) 0.4 Mg Cap 0.4 MG HS for Manage Prostate Problems, #30 CAP 0 Refills Moises Ferguson MD Nov 17, 2017 08:57
[2017-11-17] MEDS: PANTOPRAZOLE SODIUM 40 MG VIAL IV PUSH SCH (09:20)
[2017-11-17 11:22] VITALS: BP 123/58; PULSE 79; RESP 18; TEMP 98.1; O2SAT 95
--- NOTE | 2017-11-17 11:51 | PD.ONC.PN ---
Subjective Subjective Remarks Afebrile overnight. Patient resting in bed. daughter in law at bedside. has some mild pain in his post-surgical knee. denies bleeding. Objective Data Date Time Temp Pulse Resp B/P (MAP) Pulse Ox O2 Delivery O2 Flow Rate FiO2 11/17/17 11:22 98.1 79 18 123/58 (79) 95 11/17/17 09:15 Room Air 11/17/17 08:23 98.1 72 18 156/60 (92) 96 11/17/17 08:19 98.1 72 18 156/65 (95) 96 11/17/17 08:00 77 11/17/17 04:00 62 11/17/17 04:00 97.2 69 17 131/63 (85) 97 11/17/17 03:52 Room Air 11/17/17 00:00 Room Air 11/17/17 00:00 97.9 75 17 133/61 (85) 96 11/17/17 00:00 69 11/16/17 21:21 98.3 77 118/59 (78) 94 11/16/17 20:00 Room Air 11/16/17 20:00 82 11/16/17 16:00 98.4 78 18 135/65 (88) 96 11/16/17 16:00 77 11/16/17 13:42 99.9 72 20 123/63 (83) 97 11/17/17 11/17/17 11/17/17 07:00 15:00 23:00 Intake Total 360 ml Output Total 650 ml Balance -290 ml Result Diagram: 11/16/17 0440 11/16/172048 Laboratory Results Laboratory Tests Test 11/16/17 20:49 Blood Urea Nitrogen 18 MG/DL Creatinine 1.35 MG/DL Random Glucose 123 MG/DL Total Protein 6.1 GM/DL Calcium Level 7.4 MG/DL Sodium Level 138 MEQ/L Potassium Level 4.8 MEQ/L Chloride Level 106 MEQ/L Carbon Dioxide Level 24.5 MEQ/L Anion Gap 8 MEQ/L Estimat Glomerular Filtration Rate 50 ML/MIN Protein Corrected Calcium 7.9 MG/DL Vitamin B12 Level GREATER THAN 2000 PG/ML Folate GREATER THAN 20.0 NG/ML Administered Medications Medications (Trade) Dose Ordered Sig/Jace Route PRN Reason Start Time Stop Time Status Last Admin Dose Admin Acetaminophen/ Hydrocodone Bitart (Grabill 7.5-325 Mg) 1 tab Q4H PRN PO PAIN SCALE 6 TO 10 11/14/17 22:30 11/16/17 00:05 Tamsulosin HCl (Flomax) 0.4 mg HS PO 11/15/17 21:00 11/16/17 20:46 Pantoprazole Sodium (Protonix Inj) 40 mg Q12H IV PUSH 11/15/17 09:00 11/17/17 09:20 Acetaminophen (Tylenol) 500 mg Q4H PRN PO PAIN 1-5 11/15/17 08:45 11/16/17 20:46 Lactated Ringer's 1,000 ml @ 30 mls/hr Q24H PRN IV SEE LABEL COMMENTS 11/16/17 10:30 11/19/17 10:29 11/16/17 09:45 Objective Remarks GENERAL: Elderly male, sitting up in chair next to bed in [facility]. SKIN: Warm and dry. HEAD: Normocephalic. EYES: No injection or drainage. NECK: Supple, trachea midline. CARDIOVASCULAR: Regular rate and rhythm RESPIRATORY: Breath sounds equal bilaterally. No accessory muscle use. GASTROINTESTINAL: Abdomen soft, non-tender, nondistended. EXTREMITIES: No cyanosis. left knee is post-surgically swollen with clean incision site and no erythema or bleeding. MUSCULOSKELETAL: Adequate muscle tone. NEUROLOGICAL: awake and alert. normal speech Assessment/Plan Problem List: (1) Symptomatic anemia ICD Codes: D64.9 - Anemia, unspecified Status: Acute Plan: 11/17: hgb stable. ok to d/c from hematology perspective. follow up in clinic. --EGD/colonoscopy -->+polyp in the rectum. No bleeding noted. + nonbleeding internal hemorrhoids --CAT ab/pelvis--no evidence of retroperitoneal bleeding. --anemia due to surgical blood loss +GI bleeding, likely d/t Eliquis. --B12/folate show no deficiency --anemia studies are within normal limits Assessment 87y/o male s/p left knee surgery, admitted with anemia, black tarry stools. h/o IgM monoclonal gammopathy of unknown significance, history of iron deficiency anemia due to regular blood donation. History of arthritis, basal cell skin cancer, BPH, colonic polyp, progressive gastroesophageal reflux disease, osteoporosis. Attending Statement The exam, history, and the medical decision-making described in the above note were completed with the assistance of the mid-level provider. I reviewed and agree with the findings presented. I attest that I had a [id number] encounter with the patient on the same day, and personally performed and documented my assessment and findings in the medical record. Feels better. Less pain and swelling Left knee. No more dark stool. H/H stable . Ok to d/c to rehab FU office. Lorena Dhillon Nov 17, 2017 11:51 Aristeo Claudio MD Nov 17, 2017 12:16
[2017-11-17] MEDS: ACETAMINOPHEN 500 MG CPLT PO PRN (12:13)
== END 2017-11-17 13:15 | DRG 379 ==
LOC: NEPC 19:26 → NEDA 22:16 → NEPHCDU 23:57 → N04B 11-15 13:19
PROVIDERS: ADMIT Hospitalist; ATTEND Hospitalist
PROC: 30233N1 Transfusion of Nonautologous Red Blood Cells into Peripheral Vein, Percutaneous Approach (ICD-10-PCS; principal; 2017-11-14)
PROC: 0DB78ZX Excision of Stomach, Pylorus, Via Natural or Artificial Opening Endoscopic, Diagnostic (ICD-10-PCS; 2017-11-16)
PROC: 0DB58ZX Excision of Esophagus, Via Natural or Artificial Opening Endoscopic, Diagnostic (ICD-10-PCS; 2017-11-16)
PROC: 0DBP8ZX Excision of Rectum, Via Natural or Artificial Opening Endoscopic, Diagnostic (ICD-10-PCS; 2017-11-16)
PROC: 0DB98ZX Excision of Duodenum, Via Natural or Artificial Opening Endoscopic, Diagnostic (ICD-10-PCS; 2017-11-16 12:55)
DX: K92.2 Gastrointestinal hemorrhage, unspecified (principal); D47.2 Monoclonal gammopathy; D64.9 Anemia, unspecified; F10.20 Alcohol dependence, uncomplicated; K22.70 Barrett's esophagus without dysplasia; K64.8 Other hemorrhoids; N40.0 Benign prostatic hyperplasia without lower urinary tract symptoms; K21.9 Gastro-esophageal reflux disease without esophagitis; M19.90 Unspecified osteoarthritis, unspecified site; K59.00 Constipation, unspecified; R23.8 Other skin changes; N18.9 Chronic kidney disease, unspecified; K64.4 Residual hemorrhoidal skin tags; K44.9 Diaphragmatic hernia without obstruction or gangrene; K62.1 Rectal polyp; K29.70 Gastritis, unspecified, without bleeding; Z96.652 Presence of left artificial knee joint; Z79.891 Long term (current) use of opiate analgesic; Z85.828 Personal history of other malignant neoplasm of skin; Z90.49 Acquired absence of other specified parts of digestive tract; Z79.899 Other long term (current) drug therapy; Z79.01 Long term (current) use of anticoagulants
CPT/HCPCS: 36430; 71045; 74177; 80048; 80053; 82550; 82552; 82607; 82746; 82948; 83540; 83550; 83735; 83880; 84155; 84484; 85007; 85027; 85610; 85730; 86850; 86900; 86901; 86920; 86922; 88305; 88312; 93005; 99285; C9113; J1940; J7030; J7050; J7120; P9016; Q9967

== ENCOUNTER 2017-11-18 21:12 | Emergency (ER) | payer MEDICARE ==
[~2017-11-18] VITALS: Ht 180.3 cm; Wt 80.0 kg
[2017-11-18 21:21] VITALS: BP 143/65; PULSE 75; RESP 20; TEMP 98.2; O2SAT 99
[2017-11-18] MEDS ORDERED: SODIUM CHLOR 0.9% 1000 ML INJ 1,000 ML IV SCH (21:45)
--- NOTE | 2017-11-18 21:45 | PD ---
HPI Chief Complaint: General Weakness Time Seen by Provider: 21:23 Travel History International Travel<30 days: No Contact w/Intl Traveler<30days: No Traveled to known affect area: No History of Present Illness HPI 87-year-old male complains generalized malaise and weakness. Patient states that symptoms started this afternoon. Patient was admitted to [facility] November 14 and discharged yesterday with diagnosis of symptomatic anemia, GI bleed. GI consulted. EGD and colonoscopy done which showed gastritis Oreilly' s esophagus and large hiatal hernia. Patient also was found to have rectal polyps and internal and external hemorrhoids. Patient was seen by hematology oncologist and anemia was found to be related to surgery and GI loss from Eliquis. Eliquis was stopped. Patient was discharged home yesterday. Patient was given 4 units of packed RBC transfusion prior to discharge. Patient states that he was feeling fine until this afternoon when he started feeling generalized malaise and weakness. Patient denies any headache. Patient denies any chest pain or shortness of breath. Patient denies abdominal pain. Patient denies any nausea vomiting diarrhea. Patient denies any dysuria or frequency. Patient denies any fever chills. PFSH Past Medical History Cancer: Yes (skin) Cardiovascular Problems: No Diabetes: No Diminished Hearing: Yes ([place]) Endocrine: No Gastrointestinal Disorders: Yes (gerd) Genitourinary: Yes Hiatal Hernia: No Immune Disorder: No Musculoskeletal: No Neurologic: No Psychiatric: No Reproductive: No Respiratory: No Thyroid Disease: No Past Surgical History Abdominal Surgery: Yes (lap resection, appy) AICD: No Cardiac Surgery: No Ear Surgery: No Endocrine Surgery: Yes (tonsillectomy) Eye Surgery: No Genitourinary Surgery: No Gynecologic Surgery: No Joint Replacement: Yes (LEFT KNEE) Oral Surgery: No Pacemaker: No Thoracic Surgery: No Other Surgery: Yes Social History Alcohol Use: No Tobacco Use: No Substance Use: No Allergies-Medications (Allergen,Severity, Reaction): Coded Allergies: No Known Allergies (Unverified , 11/18/17) Reported Meds & Prescriptions Reported Meds & Active Scripts Active Hydrocodone-Acetamin 7.5-325 (Hydrocodone/Acetaminophen) 7.5 Mg-325 Mg Tablet 1 Tab PO Q4H PRN Diazepam 5 Mg Tab 5 Mg PO TID PRN Walker with Front Wheels (Device) 1 Mis Mis Ea .XX DIRECTED Adjustable Commode 3-in-1 (Device) 1 Mis Mis Ea .XX DIRECTED CPM-Continuous Passive Motion Machine 1 Ea Device Ea .XX DIRECTED Reported Tamsulosin (Tamsulosin HCl) 0.4 Mg Cap 0.4 Mg HS Omeprazole 20 Mg Tab 20 Mg PO DAILY Vitamin B12 (Cyanocobalamin) 500 Mcg Tab 1,000 Mcg PO DAILY Folic Acid 0.8 Mg Tab 2,000 Mcg PO DAILY Review of Systems General / Constitutional: No: Fever Eyes: No: Visual changes HENT: No: Headaches Cardiovascular: No: Chest Pain or Discomfort Respiratory: No: Shortness of Breath Gastrointestinal: No: Abdominal Pain Genitourinary: No: Dysuria Musculoskeletal: No: Pain Skin: No Rash Neurologic: No: Weakness Psychiatric: No: Depression Endocrine: No: Polydipsia Hematologic/Lymphatic: No: Easy Bruising Physical Exam Narrative GENERAL: Well-nourished, well-developed patient. SKIN: Focused skin assessment warm/dry. HEAD: Normocephalic. EYES: No scleral icterus. No injection or drainage. NECK: Supple, trachea midline. No JVD or lymphadenopathy. CARDIOVASCULAR: Regular rate and rhythm without murmurs, gallops, or rubs. RESPIRATORY: Breath sounds equal bilaterally. No accessory muscle use. GASTROINTESTINAL: Abdomen soft, non-tender, nondistended. Rectal exam Hemoccult negative. MUSCULOSKELETAL: No cyanosis, or edema. BACK: Nontender without obvious deformity. No CVA tenderness. Neurologic exam normal. Data Data Last Documented VS Vital Signs Date Time Temp Pulse Resp B/P (MAP) Pulse Ox O2 Delivery O2 Flow Rate FiO2 11/18/17 21:26 20 98 Room Air 11/18/17 21:21 98.2 75 143/65 (91) Orders Orders Electrocardiogram (11/18/17 21:38) Complete Blood Count With Diff (11/18/17 21:38) Comprehensive Metabolic Panel (11/18/17 21:38) Prothrombin Time / Inr (Pt) (11/18/17 21:38) Act Partial Throm Time (Ptt) (11/18/17 21:38) Urinalysis - C+S If Indicated (11/18/17 21:38) Thyroid Stimulating Hormone (11/18/17 21:38) Chest, Single Ap (11/18/17 21:38) Iv Access Insert/Monitor (11/18/17 21:38) Ecg Monitoring (11/18/17 21:38) Oximetry (11/18/17 21:38) Sodium Chlor 0.9% 1000 Ml Inj (Ns 1000 M (11/18/17 21:45) Potassium, Serum (K) (11/19/17 00:19) Labs Laboratory Tests Test 11/18/17 21:30 11/18/17 22:30 11/19/17 00:25 White Blood Count 10.6 TH/MM3 Red Blood Count 2.40 MIL/MM3 Hemoglobin 9.2 GM/DL Hematocrit 24.6 % Mean Corpuscular Volume 102.4 FL Mean Corpuscular Hemoglobin 38.2 PG Mean Corpuscular Hemoglobin Concent 37.3 % Red Cell Distribution Width 17.2 % Platelet Count 568 TH/MM3 Mean Platelet Volume 7.7 FL Neutrophils (%) (Auto) 74.4 % Lymphocytes (%) (Auto) 13.7 % Monocytes (%) (Auto) 8.6 % Eosinophils (%) (Auto) 2.6 % Basophils (%) (Auto) 0.7 % Neutrophils # (Auto) 7.9 TH/MM3 Lymphocytes # (Auto) 1.5 TH/MM3 Monocytes # (Auto) 0.9 TH/MM3 Eosinophils # (Auto) 0.3 TH/MM3 Basophils # (Auto) 0.1 TH/MM3 CBC Comment AUTO DIFF Differential Total Cells Counted 100 Neutrophils % (Manual) 77 % Band Neutrophils % 1 % Lymphocytes % 12 % Monocytes % 9 % Eosinophils % 1 % Neutrophils # (Manual) 8.3 TH/MM3 Differential Comment FINAL DIFF MANUAL Platelet Estimate HIGH Platelet Morphology Comment NORMAL Red Cell Morphology Comment NORMAL Prothrombin Time 11.9 SEC Prothromb Time International Ratio 1.2 RATIO Activated Partial Thromboplast Time 21.4 SEC Blood Urea Nitrogen 17 MG/DL Creatinine 1.45 MG/DL Random Glucose 95 MG/DL Total Protein 6.6 GM/DL Albumin 2.7 GM/DL Calcium Level 8.0 MG/DL Alkaline Phosphatase 130 U/L Aspartate Amino Transf (AST/SGOT) 43 U/L Alanine Aminotransferase (ALT/SGPT) 52 U/L Total Bilirubin 1.3 MG/DL Sodium Level 138 MEQ/L Potassium Level 6.2 MEQ/L 4.2 MEQ/L Chloride Level 109 MEQ/L Carbon Dioxide Level 23.2 MEQ/L Anion Gap 6 MEQ/L Estimat Glomerular Filtration Rate 46 ML/MIN Thyroid Stimulating Hormone 3rd Gen 3.270 uIU/ML Urine Color YELLOW Urine Turbidity CLEAR Urine pH 7.5 Urine Specific [place] 1.010 Urine Protein NEG mg/dL Urine Glucose (UA) NEG mg/dL Urine Ketones NEG mg/dL Urine Occult Blood NEG Urine Nitrite NEG Urine Bilirubin NEG Urine Urobilinogen LESS THAN 2.0 MG/DL Urine Leukocyte Esterase NEG Urine WBC LESS THAN 1 /hpf Urine Amorphous Sediment RARE Urine Mucus FEW /lpf Microscopic Urinalysis Comment CULT NOT INDICATED MDM Medical Decision Making Medical Screen Exam Complete: Yes Emergency Medical Condition: Yes Interpretation(s) Last Impressions Chest X-Ray 11/[id number]/[id number] Signed Impressions: Service Date/Time: Saturday, November 18, 2017 22:04 - CONCLUSION: No acute disease. Gael Roberts MD CBC WBC 10.6. Hemoglobin 9.2 hematocrit 34.6. MCV 102.4. Patient at baseline. Potassium 6.2. Slight hemolysis noted. BUN 17. Creatinine 1.45. Patient at baseline. Calcium 8.0. Total bili 1.3. UA is negative. 1:32 AM. Repeated potassium 4.2. Differential Diagnosis Differential diagnosis including viral syndrome, electrolyte abnormality, anemia , dehydration. Narrative Course 87-year-old male with generalized malaise and weakness. History of recent GI bleed that required blood transfusion. Diagnosis Primary Impression: Weakness Patient Instructions: General Instructions Additional Instructions: Continue with medications as directed. Follow-up with personal physician. Return if worse. Med/Other Pt SpecificInfo: No Change to Meds Disposition: 01 DISCHARGE HOME Condition: Stable Ben Parra MD Nov 18, 2017 21:45
[2017-11-18 22:15] LABS: INTERNATIONAL NORMALIZED RATIO 1.2 RATIO; PROTHROMBIN TIME - PATIENT 11.9 SEC (9.8-11.6)
[2017-11-18 22:23] LABS: ALBUMIN 2.7 GM/DL (3.4-5.0); AST (GOT) 43 U/L (15-37); BICARBONATE 23.2 MEQ/L (21.0-32.0); BLOOD UREA NITROGEN 17 MG/DL (7-18); CHLORIDE 109 MEQ/L (98-107); CREATININE 1.45 MG/DL (0.60-1.30); GLOMERULAR FILTRATION RATE 46 ML/MIN (>89); GLUCOSE,RANDOM 95 MG/DL (74-106); SODIUM (NA) 138 MEQ/L (136-145)
[2017-11-18 22:34] LABS: AUTOMATED NEUTROPHIL # 7.9 TH/MM3 (1.8-7.7); BASOPHIL # 0.1 TH/MM3 (0-0.2); BASOPHIL % 0.7 % (0.0-2.0); EOSINOPHIL # 0.3 TH/MM3 (0-0.4); EOSINOPHIL % 2.6 % (0.0-4.0); HEMATOCRIT 24.6 % (39.0-51.0); HEMOGLOBIN 9.2 GM/DL (13.0-17.0); LYMPH % 13.7 % (9.0-44.0); LYMPHOCYTE # 1.5 TH/MM3 (1.0-4.8); MEAN CELL VOLUME 102.4 FL (80.0-100.0); MEAN CORPUSCULAR HEMOGLOBIN 38.2 PG (27.0-34.0); MEAN CORPUSCULAR HGB CONC 37.3 % (32.0-36.0); MEAN PLATELET VOLUME 7.7 FL (7.0-11.0); MONO % 8.6 % (0.0-8.0); MONOCYTE # 0.9 TH/MM3 (0-0.9); NEUT % 74.4 % (16.0-70.0); PLATELET COUNT 568 TH/MM3 (150-450); RED CELL DISTRIBUTION WIDTH 17.2 % (11.6-17.2); WHITE BLOOD COUNT 10.6 TH/MM3 (4.0-11.0)
[2017-11-18 22:48] LABS: ALKALINE PHOSPHATASE 130 U/L (45-117); ALT (GPT) 52 U/L (12-78); TOTAL BILIRUBIN ADULT 1.3 MG/DL (0.2-1.0); TOTAL PROTEIN 6.6 GM/DL (6.4-8.2)
[2017-11-18 22:59] LABS: AMORPHOUS SEDIMENT, URINE RARE; BILIRUBIN, URINE NEG (NEG); BLOOD, URINE NEG (NEG); GLUCOSE,URINE NEG (NEG); KETONE, URINE NEG (NEG); MUCUS URINE FEW /lpf (OCC); NITRITE,URINE NEG (NEG); PH, URINE 7.5 (5.0-8.5); URINE COLOR YELLOW (YELLW/STRAW); URINE LEUKOCYTE ESTERASE NEG (NEG)
[2017-11-18 23:00] VITALS: BP 158/74; PULSE 72; RESP 21; O2SAT 97
--- NOTE | 2017-11-18 23:03 | RADRPT ---
EXAM DATE/TIME: 11/18/2017 22:04 [facility] COMPARISON: CHEST SINGLE AP, November 14, 2017, 20:19. INDICATIONS : Shortness of breath MEDICAL HISTORY : Gastroesophageal reflux disease. Skin cancer SURGICAL HISTORY : Appendectomy. ENCOUNTER: Initial ACUITY: 1 day PAIN SCORE: 0/10 LOCATION: Bilateral chest FINDINGS: A single view of the chest demonstrates the lungs to be symmetrically aerated without evidence of mas s, infiltrate or effusion. The cardiomediastinal contours are unremarkable. There is persistent chiquis vation of the left hemidiaphragm. Osseous structures are intact. CONCLUSION: No acute disease. Gael Roberts MD on November 18, 2017 at 23:01 Board Certified Radiologist. This report was verified electronically.
[2017-11-18 23:09] LABS: BANDS 1 % (0-6); LYMPHOCYTES 12 % (9-44); MONOCYTES 9 % (0-8); NEUTROPHIL # MANUAL DIFF 8.3 TH/MM3 (1.8-7.7); POLYS (SEG NEUTROPHILS) 77 % (16-70)
[2017-11-19] VITALS: BP 156/70; PULSE 72; RESP 21; O2SAT 98
[2017-11-19 01:00] VITALS: BP 151/72; PULSE 70; RESP 20; O2SAT 97
--- NOTE | 2017-11-19 18:27 | EKG ---
Date Performed: 11/18/2017 Time Performed: 21:21:50 PTAGE: 87 years EKG: Sinus rhythm WITH FIRST DEGREE AV BLOCK Since the previous tracing, no significant change noted NORMAL ECG PREVIOUS TRACING : 11/14/2017 19.41 DOCTOR: Casimiro Melton Interpretating Date/Time 11/19/2017 18:26:14
== END 2017-11-19 02:33 | disposition home or self-care (01) ==
LOC: NEPC 21:12
DX: R53.1 Weakness (principal); R53.81 Other malaise; K21.9 Gastro-esophageal reflux disease without esophagitis
CPT/HCPCS: 71045; 80053; 81001; 84132; 84443; 85007; 85027; 85610; 85730; 93005; 99285; J7030

== ENCOUNTER 2017-12-26 08:11 | Inpatient (IN) | payer MEDICARE ==
[~2017-12-26] VITALS: Ht 180.3 cm; Wt 79.6 kg
[2017-12-26] VITALS (7 sets, daily range): BP systolic 108–148; BP diastolic 55–69; PULSE 71–87; RESP 18–19; TEMP 97.7–98.1; O2SAT 97–100
--- NOTE | 2017-12-26 09:14 | RADRPT ---
EXAM DATE: 12/26/2017 9:11 AM EDT AGE/SEX: 87 years / Male INDICATIONS: Right hip pain and deformity after fall CLINICAL DATA: This is the patient's initial encounter. Patient reports that signs and symptoms have been present for 1 day and indicates a pain score of 9/10. MEDICAL/SURGICAL HISTORY: Gastroesophageal reflux disease. skin cancer Appendectomy. Left knee surgery COMPARISON: No prior [facility] exams available for comparison. FINDINGS: Views of the right hip are obtained. Displaced intertrochanteric fracture. Femoral head continues to articulate with the acetabulum. There is minimal comminution. CONCLUSION: Displaced intertrochanteric fracture right hip Electronically signed by: Dimitris Douglas MD 12/26/2017 9:13 AM EDT
--- NOTE | 2017-12-26 09:18 | RADRPT ---
EXAM DATE: 12/26/2017 9:14 AM EDT AGE/SEX: 87 years / Male INDICATIONS: Right hip pain and deformity after fall 1 day ago CLINICAL DATA: This is the patient's initial encounter. Patient reports that signs and symptoms have been present for 1 day and indicates a pain score of 9/10. MEDICAL/SURGICAL HISTORY: Gastroesophageal reflux disease. Skin cancer Appendectomy. Left knee surgery COMPARISON: No prior [facility] exams available for comparison. FINDINGS: Views of the right knee are obtained. No fracture or effusion. Mild osteoarthritis. Joints are intac t without dislocation or significant arthropathy. Osseous density is under mineralized. Soft tissue s are unremarkable. No radiopaque foreign bodies seen. CONCLUSION: 1. 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 2. Osteopenia. Electronically signed by: Dimitris Douglas MD 12/26/2017 9:17 AM EDT
--- NOTE | 2017-12-26 09:49 | PD ---
HPI Chief Complaint: Fall Time Seen by Provider: 08:18 Travel History International Travel<30 days: No Contact w/Intl Traveler<30days: No Traveled to known affect area: No History of Present Illness HPI Patient is a 87 year old male who comes in complaining of right hip pain after a fall. He says his cane slipped yesterday and he fell between his house and the garage. He says that he fell on his right side. He denies hitting his head or any LOC. He says his children helped him up into a chair and he is basically been sitting there since then. He took 2 Tylenol for his pain without relief of his symptoms. He called 911 today because the pain has not improved and he is unable to walk. Severity is moderate. PFSH Past Medical History Cancer: Yes (skin) Cardiovascular Problems: No Diabetes: No Diminished Hearing: Yes [place]) Endocrine: No Gastrointestinal Disorders: Yes (gerd) GERD: Yes Genitourinary: Yes (BPH) Hiatal Hernia: No Immune Disorder: No Musculoskeletal: No Neurologic: No Psychiatric: No Reproductive: No Respiratory: No Thyroid Disease: No Tetanus Vaccination: Unknown Influenza Vaccination: Yes ?: Not Past Surgical History Abdominal Surgery: Yes (lap resection, appy) AICD: No Appendectomy: Yes Cardiac Surgery: No Ear Surgery: No Endocrine Surgery: Yes (tonsillectomy) Eye Surgery: No Genitourinary Surgery: No Gynecologic Surgery: No Joint Replacement: Yes (LEFT KNEE) Oral Surgery: No Pacemaker: No Thoracic Surgery: No Tonsillectomy: Yes Other Surgery: Yes Social History Alcohol Use: Yes (ONE DAILY ) Tobacco Use: No Substance Use: No Allergies-Medications (Allergen,Severity, Reaction): Coded Allergies: No Known Allergies (Unverified , 11/18/17) Reported Meds & Prescriptions Reported Meds & Active Scripts Active Hydrocodone-Acetamin 7.5-325 (Hydrocodone/Acetaminophen) 7.5 Mg-325 Mg Tablet 1 Tab PO Q4H PRN Diazepam 5 Mg Tab 5 Mg PO TID PRN Walker with Front Wheels (Device) 1 Mis Mis Ea .XX DIRECTED Adjustable Commode 3-in-1 (Device) 1 Mis Mis Ea .XX DIRECTED CPM-Continuous Passive Motion Machine 1 Ea Device Ea .XX DIRECTED Reported Tamsulosin (Tamsulosin HCl) 0.4 Mg Cap 0.4 Mg HS Omeprazole 20 Mg Tab 20 Mg PO DAILY Vitamin B12 (Cyanocobalamin) 500 Mcg Tab 1,000 Mcg PO DAILY Folic Acid 0.8 Mg Tab 2,000 Mcg PO DAILY Review of Systems Except as stated in HPI: all other systems reviewed are Neg General / Constitutional: No: Fever, Chills HENT: No: Headaches, Lightheadedness Cardiovascular: No: Chest Pain or Discomfort Respiratory: No: Shortness of Breath Gastrointestinal: No: Nausea, Vomiting Musculoskeletal: Positive: Myalgias, Limited ROM, Pain Skin: No Rash, No Change in Pigmentation Neurologic: No: Weakness, Dizziness Physical Exam Narrative GENERAL: Awake and alert, no acute distress. SKIN: Focused skin assessment warm/dry. No wounds or signs of infection. HEAD: Atraumatic. Normocephalic. EYES: Pupils equal and round. No scleral icterus. ENT: Mucous membranes pink and moist. NECK: Trachea midline. No JVD. CARDIOVASCULAR: Regular rate and rhythm. No murmur appreciated. RESPIRATORY: No accessory muscle use. Clear to auscultation. Breath sounds equal bilaterally. GASTROINTESTINAL: Abdomen soft, non-tender, nondistended. MUSCULOSKELETAL: No obvious deformities. No clubbing. No cyanosis. No edema. No tenderness to palpation of the right hip. Pain with movement of the right hip. Pedal pulses intact. NEUROLOGICAL: Awake and alert. No obvious cranial nerve deficits. Motor grossly within normal limits. Normal speech. PSYCHIATRIC: Appropriate mood and affect; insight and judgment normal. Data Data Last Documented VS Vital Signs Date Time Temp Pulse Resp B/P (MAP) Pulse Ox O2 Delivery O2 Flow Rate FiO2 12/26/17 08:19 87 18 148/69 (95) 98 Room Air Orders Orders Knee, Complete (4vws) (12/26/17 ) Hip, Uni(Ap&Lat) W Ap Pelvis (12/26/17 ) Iv Access Insert/Monitor (12/26/17 09:27) Complete Blood Count With Diff (12/26/17 09:27) Comprehensive Metabolic Panel (12/26/17 09:27) Act Partial Throm Time (Ptt) (12/26/17 09:27) Prothrombin Time / Inr (Pt) (12/26/17 09:27) Type And Screen (12/26/17 09:27) MDM Medical Decision Making Medical Screen Exam Complete: Yes Emergency Medical Condition: Yes Medical Record Reviewed: Yes Differential Diagnosis Hip fracture versus sprain versus knee fracture Narrative Course Patient is an 87-year-old male who comes in complaining of right hip pain after fall. Exam shows pain with movement of the right hip. X-rays obtained show an anterior trochanteric fracture of the right hip. Patient received 6 mg of morphine by EMS prior to arrival and says his pain is controlled for the moment. Orthopedics consulted. Patient will be admitted for further management. Last 24 hours Impressions Knee X-Ray 12/26/17 0000 Signed Impressions: CONCLUSION: 1. 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 2. Osteopenia. Hip and Pelvis X-Ray 12/26/17 0000 Signed Impressions: CONCLUSION: Displaced intertrochanteric fracture right hip Diagnosis Primary Impression: Hip fracture Qualified Codes: S72.001A - Fracture of unspecified part of neck of right femur, initial encounter for closed fracture Admitting Information Admitting Physician Requests: Admit Nisha Medrano MD December 26, 2017 09:49
[2017-12-26 09:51] LABS: AUTOMATED NEUTROPHIL # 5.9 TH/MM3 (1.8-7.7); BASOPHIL % 0.5 % (0.0-2.0); EOSINOPHIL % 0.1 % (0.0-4.0); HEMOGLOBIN 8.9 GM/DL (13.0-17.0); LYMPH % 7.7 % (9.0-44.0); LYMPHOCYTE # 0.5 TH/MM3 (1.0-4.8); MEAN PLATELET VOLUME 7.9 FL (7.0-11.0); MONOCYTE # 0.6 TH/MM3 (0-0.9); NEUT % 82.7 % (16.0-70.0); PLATELET COUNT 283 TH/MM3 (150-450); RED CELL DISTRIBUTION WIDTH 18.2 % (11.6-17.2); WHITE BLOOD COUNT 7.1 TH/MM3 (4.0-11.0)
[2017-12-26] MEDS ORDERED: MORPHINE SULFATE 4 MG/ML INJ IV PUSH ONE (10:00)
[2017-12-26 10:03] LABS: INTERNATIONAL NORMALIZED RATIO 1.1 RATIO; PROTHROMBIN TIME - PATIENT 11.6 SEC (9.8-11.6)
[2017-12-26 10:10] LABS: HEMATOCRIT 25.4 % (39.0-51.0); MEAN CORPUSCULAR HGB CONC 34.9 % (32.0-36.0); RED BLOOD COUNT 2.46 MIL/MM3 (4.50-5.90)
[2017-12-26 10:11] LABS: MEAN CELL VOLUME 103.5 FL (80.0-100.0); MEAN CORPUSCULAR HEMOGLOBIN 36.1 PG (27.0-34.0)
[2017-12-26 10:14] LABS: ALBUMIN 3.1 GM/DL (3.4-5.0); AST (GOT) 17 U/L (15-37); BICARBONATE 27.4 MEQ/L (21.0-32.0); BLOOD UREA NITROGEN 17 MG/DL (7-18); CALCIUM 8.1 MG/DL (8.5-10.1); CHLORIDE 107 MEQ/L (98-107); CREATININE 1.27 MG/DL (0.60-1.30); GLOMERULAR FILTRATION RATE 54 ML/MIN (>89); GLUCOSE,RANDOM 105 MG/DL (74-106); SODIUM (NA) 141 MEQ/L (136-145)
[2017-12-26 10:15] LABS: ALT (GPT) 16 U/L (12-78)
[2017-12-26 10:17] LABS: ALKALINE PHOSPHATASE 142 U/L (45-117); TOTAL BILIRUBIN ADULT 1.9 MG/DL (0.2-1.0); TOTAL PROTEIN 6.6 GM/DL (6.4-8.2)
[2017-12-26] MEDS ORDERED: SODIUM CHLOR 0.9% 1000 ML INJ 1,000 ML IV SCH (10:37)
[2017-12-26] MEDS ORDERED: SODIUM CHLORIDE 0.9% FLUSH 10 ML FLUSH IV FLUSH PRN (10:45)
[2017-12-26] MEDS ORDERED: NALOXONE HCL 0.4 MG/ML AMP IV PUSH PRN (10:45)
[2017-12-26] MEDS ORDERED: ACETAMINOPHEN 325 MG TAB PO PRN (10:45)
[2017-12-26] MEDS ORDERED: MAGNESIUM HYDROXIDE SUSP 30 ML CUP PO PRN (10:45)
--- NOTE | 2017-12-26 10:54 | HHI.HP ---
HPI Service [facility] Hospitalists Primary Care Physician Jackson Zamudio MD Admission Diagnosis Mechanical fall with right hip fracture Chief Complaint: Right hip pain Travel History International Travel<30 Days: No Contact w/Intl Traveler <30 Da: No Traveled to Known Affected Are: No History of Present Illness Mr. Angel is a pleasant 86 y/o male with osteoarthritis, BPH, GERD and MGUS ( follows with Dr. Claudio). Pt was admitted to [facility] on 11/07/17 for left total knee arthroplasty with Dr. Capellan. Patient was recently admitted to [facility] 11/15/17 - 11/17/17 for symptomatic anemia. EGD/Colonoscopy 11/16....gastritis/barretts/ large HH. rectal polyp and int/ext hemorrhoids. During that admission patient was seen by hem/onc who feels anemia is related to surgery and GI losses from Eliquis. Patient presents to the ER today with complaining of right hip pain after a fall. He says his cane slipped and he fell landing on his right side. He denies hitting his head or any LOC. He says his children helped him up into a chair. Patient continued to have severe sharp right hip pain. He took 2 Tylenol for his pain without relief of his symptoms. He called 911 today because the pain has not improved and he is unable to walk. Patient denies shortness of breath chest pain nausea vomiting diarrhea constipation fevers chills cough congestion. 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 Capellan Appendectomy Partial colectomy Vasectomy Tonsillectomy Reported Medications Hydrocodone-Acetamin 7.5-325 (Hydrocodone/Acetaminophen) 7.5 Mg-325 Mg Tablet 1 Tab PO Q4H PRN Diazepam 5 Mg Tab 5 Mg PO TID PRN Tamsulosin (Tamsulosin HCl) 0.4 Mg Cap 0.4 Mg HS Omeprazole 20 Mg Tab 20 Mg PO DAILY Vitamin B12 (Cyanocobalamin) 500 Mcg Tab 1,000 Mcg PO DAILY Folic Acid 0.8 Mg Tab 2,000 Mcg PO DAILY Allergies: Coded Allergies: No Known Allergies (Unverified , 11/18/17) Family History Noncontributory Social History No reported alcohol, tobacco or illicit drug use Physical Exam Vital Signs Vital Signs Date Time Temp Pulse Resp B/P (MAP) Pulse Ox O2 Delivery O2 Flow Rate FiO2 12/26/17 08:19 87 18 148/69 (95) 98 Room Air 12/26/17 08:19 97 Room Air Physical Exam GENERAL: This is a 87 year old male patient well-nourished, well-developed patient, in no apparent distress. SKIN: No rashes, ecchymoses or lesions. Cool and dry. HEAD: Atraumatic. Normocephalic. No temporal or scalp tenderness. EYES: Extraocular motions intact. No scleral icterus. No injection or drainage. CARDIOVASCULAR: Regular rate and rhythm RESPIRATORY: Clear to auscultation. Breath sounds equal bilaterally. GASTROINTESTINAL: Abdomen soft, non-tender, nondistended. MUSCULOSKELETAL: Extremities without clubbing, cyanosis, or edema. No joint tenderness, effusion, or edema noted. No calf tenderness. Negative Homans sign bilaterally. right lower extremity shorted and rotated NEUROLOGICAL: Awake and alert. No focal deficits noted. Motor and sensory grossly within normal limits. Five out of 5 muscle strength in all muscle groups , with the exception of RLE ROM limited due to pain. Normal speech. Laboratory Laboratory Tests Test 12/26/17 09:40 White Blood Count 7.1 Red Blood Count 2.46 Hemoglobin 8.9 Hematocrit 25.4 Mean Corpuscular Volume 103.5 Mean Corpuscular Hemoglobin 36.1 Mean Corpuscular Hemoglobin Concent 34.9 Red Cell Distribution Width 18.2 Platelet Count 283 Mean Platelet Volume 7.9 Neutrophils (%) (Auto) 82.7 Lymphocytes (%) (Auto) 7.7 Monocytes (%) (Auto) 9.0 Eosinophils (%) (Auto) 0.1 Basophils (%) (Auto) 0.5 Neutrophils # (Auto) 5.9 Lymphocytes # (Auto) 0.5 Monocytes # (Auto) 0.6 Eosinophils # (Auto) 0.0 Basophils # (Auto) 0.0 CBC Comment DIFF FINAL Differential Comment Hematology Comments Prothrombin Time 11.6 Prothromb Time International Ratio 1.1 Activated Partial Thromboplast Time 22.9 Blood Urea Nitrogen 17 Creatinine 1.27 Random Glucose 105 Total Protein 6.6 Albumin 3.1 Calcium Level 8.1 Alkaline Phosphatase 142 Aspartate Amino Transf (AST/SGOT) 17 Alanine Aminotransferase (ALT/SGPT) 16 Total Bilirubin 1.9 Sodium Level 141 Potassium Level 4.3 Chloride Level 107 Carbon Dioxide Level 27.4 Anion Gap 7 Estimat Glomerular Filtration Rate 54 Result Diagram: 12/26/17 0940 12/26/17 0940 Imaging Last Impressions Knee X-Ray 12/26/17 0000 Signed Impressions: CONCLUSION: 1. 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 2. Osteopenia. Hip and Pelvis X-Ray 12/26/17 0000 Signed Impressions: CONCLUSION: Displaced intertrochanteric fracture right hip Caprini VTE Risk Assessment Caprini VTE Risk Assessment: Mod/High Risk (score >= 2) Caprini Risk Assessment Model Point Value = 1 Point Value = 2 Point Value = 3 Point Value = 5 Age 41-60 Minor surgery BMI > 25 kg/m2 Swollen legs Varicose veins or History of unexplained or recurrent spontaneous Oral contraceptives or hormone replacement Sepsis (< 1 month) Serious lung disease, including pneumonia (< 1 month) Abnormal pulmonary function Acute myocardial infarction Congestive heart failure (< 1 month) History of inflammatory bowel disease Medical patient at bed rest Age 61-74 Arthroscopic surgery Major open surgery (> 45 min) Laparoscopic surgery (> 45 min) Malignancy Confined to bed (> 72 hours) Immobilizing plaster cast Central venous access Age >= 75 History of VTE Family history of VTE Factor V Leiden Prothrombin [id number] Lupus anticoagulant Anticardiolipin antibodies Elevated serum homocysteine Heparin-induced thrombocytopenia Other congenital or acquired thrombophilia Stroke (< 1 month) Elective arthroplasty Hip, pelvis, or leg fracture Acute spinal cord injury (< 1 month) Prophylaxis Regimen Total Risk Factor Score Risk Level Prophylaxis Regimen 0-1 Low Early ambulation 2 Moderate Order ONE of the following: *Sequential Compression Device (SCD) *Heparin 5000 units SQ BID 3-4 Higher Order ONE of the following medications: *Heparin 5000 units SQ TID *Enoxaparin/Lovenox 40 mg SQ daily (WT < 150 kg, CrCl > 30 mL/min) *Enoxaparin/Lovenox 30 mg SQ daily (WT < 150 kg, CrCl > 10-29 mL/min) *Enoxaparin/Lovenox 30 mg SQ BID (WT < 150 kg, CrCl > 30 mL/min) AND/OR *Sequential Compression Device (SCD) 5 or more Highest Order ONE of the following medications: *Heparin 5000 units SQ TID (Preferred with Epidurals) *Enoxaparin/Lovenox 40 mg SQ daily (WT < 150 kg, CrCl > 30 mL/min) *Enoxaparin/Lovenox 30 mg SQ daily (WT < 150 kg, CrCl > 10-29 mL/min) *Enoxaparin/Lovenox 30 mg SQ BID (WT < 150 kg, CrCl > 30 mL/min) AND *Sequential Compression Device (SCD) Assessment and Plan Problem List: (1) Hip fracture ICD Codes: S72.009A - Fracture of unspecified part of neck of unspecified femur , initial encounter for closed fracture Status: Acute Plan: Right hip fracture Patient had a mechanical fall today unable to stand with severe right hip pain and Hip/pelvis x-ray reviewed and reveals a displaced intertrochanteric fracture of the right hip Patient has had recent knee surgery with Dr. Capellan requesting orthopedic surgery Dr. Capellan Consultation placed Acetaminophen, [place] and Morphine as needed for pain NPO after midnight IVF for hydration SCDs for DVT prophylaxis orthopedic surgery to determine further DVT prophylaxis MGUS Chronic follows with Dr. Claudio GERD Continue patient's home omeprazole BPH Continue home Flomax (2) MGUS (monoclonal gammopathy of unknown significance) ICD Codes: D47.2 - Monoclonal gammopathy Status: Chronic (3) GERD (gastroesophageal reflux disease) ICD Codes: K21.9 - Gastro-esophageal reflux disease without esophagitis Status: Chronic (4) BPH (benign prostatic hyperplasia) ICD Codes: N40.0 - Benign prostatic hyperplasia without lower urinary tract symptoms Status: Chronic (5) Status post total left knee replacement ICD Codes: Z96.652 - Presence of left artificial knee joint Assessment and Plan Patient examined. Assessment and plan formulated with Yin Alvarez PA-C. I agree with the above. Pt with recent knee surgery with dr Capellan. Pt had a fall and now has hip fx. Medically stable to proceed with ORIF tomorrow with Dr Capellan. Anemia noted since his last admission. No active bleeding. Physician Certification 2 Midnight Certification Type: Admission for Inpatient Services Order for Inpatient Services The services are ordered in accordance with Medicare regulations or non- Medicare payer requirements, as applicable. In the case of services not specified as inpatient-only, they are appropriately provided as inpatient services in accordance with the 2-midnight benchmark. Estimated LOS (days): 3 days is the estimated time the patient will need to remain in the hospital, assuming treatment plan goals are met and no additional complications. Post-Hospital Plan: SNF Problem Qualifiers (1) Hip fracture: Qualified Codes: S72.001A - Fracture of unspecified part of neck of right femur , initial encounter for closed fracture Yin Alvarez December 26, 2017 10:54 Moises Ferguson MD December 26, 2017 21:38
[2017-12-26] MEDS ORDERED: MELO15TA20 PO (11:17)
[2017-12-26] MEDS: MORPHINE SULFATE 4 MG/ML INJ IV PUSH PRN ×2 (12:05→23:09)
[2017-12-26] MEDS: ACETAMINOPHEN/HYDROcodone 325 MG/5 MG TAB PO PRN ×2 (14:32→18:12)
[2017-12-26] MEDS: TAMSULOSIN HCL 0.4 MG CAP PO SCH (20:39)
[2017-12-26] MEDS: DOCUSATE SODIUM 50 MG/SENNA 8.6 MG TAB PO SCH (20:39)
[2017-12-26] MEDS: SODIUM CHLORIDE 0.9% FLUSH 10 ML FLUSH IV FLUSH SCH (20:40)
[2017-12-26] MEDS ORDERED: METOPROLOL TARTRATE 25 MG TAB PO PRN (23:15)
[2017-12-26] MEDS ORDERED: SODIUM CHLORID 0.9% 500 ML IV PRN (23:15)
[2017-12-26] MEDS ORDERED: CHLORHEXIDINE GLUCONATE 2 % 1 PACK (2 CLOTHS) TOPICAL PRN (23:15)
[2017-12-26] MEDS ORDERED: POVIDONE IODINE 5% (ANTISEPSIS KIT) 4 APPLICATIONS EACH NARE PRN (23:15)
[2017-12-27] MEDS: DIAZEPAM 5 MG TAB PO PRN ×2 (00:03→15:25)
[2017-12-27 03:48] VITALS: BP 119/68; PULSE 79; RESP 18; TEMP 97.8; O2SAT 98
[2017-12-27 08:00] VITALS: BP 130/59; PULSE 86; RESP 18; TEMP 98.3; O2SAT 98
[2017-12-27] MEDS: DOCUSATE SODIUM 50 MG/SENNA 8.6 MG TAB PO SCH (08:17)
[2017-12-27] MEDS: PANTOPRAZOLE SOD 20 MG DELAYED RELEASE TAB PO SCH (08:18)
[2017-12-27] MEDS: ACETAMINOPHEN/HYDROcodone 325 MG/5 MG TAB PO PRN (08:28)
[2017-12-27] MEDS: LACTATED RINGER'S 1000 ML IV PRN ×2 (08:33→09:04)
[2017-12-27] MEDS: SODIUM CHLORIDE 0.9% FLUSH 10 ML FLUSH IV FLUSH SCH ×2 (08:33→19:49)
[2017-12-27 09:28] LABS: AUTOMATED NEUTROPHIL # 6.5 TH/MM3 (1.8-7.7); BASOPHIL # 0.1 TH/MM3 (0-0.2); EOSINOPHIL # 0.1 TH/MM3 (0-0.4); EOSINOPHIL % 0.8 % (0.0-4.0); HEMATOCRIT 24.4 % (39.0-51.0); HEMOGLOBIN 8.9 GM/DL (13.0-17.0); LYMPH % 13.9 % (9.0-44.0); LYMPHOCYTE # 1.2 TH/MM3 (1.0-4.8); MEAN CELL VOLUME 106.1 FL (80.0-100.0); MEAN CORPUSCULAR HEMOGLOBIN 38.6 PG (27.0-34.0); MEAN PLATELET VOLUME 8.4 FL (7.0-11.0); MONO % 6.7 % (0.0-8.0); MONOCYTE # 0.6 TH/MM3 (0-0.9); NEUT % 77.6 % (16.0-70.0); PLATELET COUNT 284 TH/MM3 (150-450); RED CELL DISTRIBUTION WIDTH 18.5 % (11.6-17.2); WHITE BLOOD COUNT 8.4 TH/MM3 (4.0-11.0)
[2017-12-27 09:29] LABS: MEAN CORPUSCULAR HGB CONC 36.4 % (32.0-36.0)
[2017-12-27 09:30] LABS: BICARBONATE 26.9 MEQ/L (21.0-32.0); CALCIUM 8.2 MG/DL (8.5-10.1); CREATININE 1.08 MG/DL (0.60-1.30)
[2017-12-27 09:56] LABS: BANDS 1 % (0-6); LYMPHOCYTES 16 % (9-44); MONOCYTES 8 % (0-8); MYELOCYTES 1 % (0-0); NEUTROPHIL # MANUAL DIFF 6.4 TH/MM3 (1.8-7.7); POLYS (SEG NEUTROPHILS) 74 % (16-70)
[2017-12-27] MEDS ORDERED: BUPIVACAINE PF 0.75% DEX-WATER INJ 2 ML AMP ONE (10:07)
[2017-12-27] MEDS ORDERED: TEMAZEPAM 15 MG CAP PO PRN (10:15)
[2017-12-27] MEDS ORDERED: NURSING INFORMATION XX PRN (10:15)
[2017-12-27] MEDS ORDERED: NALOXONE HCL 0.4 MG/ML AMP IV PUSH PRN (10:15)
[2017-12-27] MEDS ORDERED: ACETAMINOPHEN/HYDROcodone 325 MG/7.5 MG TAB PO PRN (10:15)
[2017-12-27] MEDS ORDERED: ACETAMINOPHEN 325 MG TAB PO PRN (10:15)
[2017-12-27] MEDS ORDERED: ONDANSETRON HCL 4 MG/2 ML VIAL IVP PRN (10:15)
[2017-12-27] MEDS ORDERED: MORPHINE SULFATE 8 MG/ML INJ IV PUSH PRN (10:15)
[2017-12-27] MEDS ORDERED: GENTAMICIN SULFATE 80 MG/2 ML VIAL ONE (10:15)
[2017-12-27] MEDS ORDERED: Post-op Orders (for Pharmacy) XX ONE (10:15)
[2017-12-27] MEDS ORDERED: BISACODYL 10 MG SUPP RECTAL PRN (10:15)
--- NOTE | 2017-12-27 10:24 | MB ---
cc: Aurea Capellan MD DATE: 12/27/2017 REASON FOR CONSULTATION: Fracture right hip. HISTORY OF PRESENT ILLNESS: This pleasant 87-year-old male is seen today following a trip and fall at home in which he sustained injury to his right hip, which was brought to [place] and admitted for definitive stabilization. OTHER PAST HISTORY: On 11/07/2017, he underwent a left total knee and did well. PAST MEDICAL HISTORY: He has a history of chronic anemia. PAST SURGICAL HISTORY: Appendectomy, partial colectomy, vasectomy, tonsillectomy. MEDICATIONS AT HOME: Hydrocodone, diazepam, tamsulosin, omeprazole, vitamin B12, folic acid. REVIEW OF SYSTEMS: Noncontributory. FAMILY HISTORY: Noncontributory. SOCIAL HISTORY: Does not smoke or drink. ALLERGIES: HAS NO KNOWN ALLERGIES. PHYSICAL EXAMINATION: GENERAL: A 87-year-old male, well-developed, well-nourished, oriented x 3, complaining of pain in the right hip. VITAL SIGNS: Stable, afebrile. EXTREMITIES: Right lower extremity is short and externally rotated. Neurovascularly intact to his toes. IMPRESSION AT THIS TIME: Displaced intertrochanteric fracture, right hip. PLAN: Admission by medical service followed by open reduction and internal fixation of right hip fracture today. J. Moises Capellan MD JRR/TL , 10:10 AM , 10:22 AM
[2017-12-27] MEDS ORDERED: ceFAZolin INJ 1,000 MG VIAL IV ONE ×2 (11:37→12:00)
[2017-12-27] MEDS ORDERED: PROPOFOL 200 MG/20 ML AMP IV ONE (12:00)
[2017-12-27] MEDS ORDERED: PHENYLEPH/NS 1000 MCG/10 ML SYR IV ONE (12:00)
[2017-12-27] MEDS ORDERED: ONDANSETRON ODT 4 MG TAB PO PRN (12:15)
--- NOTE | 2017-12-27 12:29 | HHI.PR ---
Immediate Post Op Note Procedure Date: December 27, 2017 Pre Op Diagnosis: Displaced intertrochanteric fracture, right hip Post Op Diagnosis: Displaced intertrochanteric fracture, right hip Surgeon: Sabas Capellan MD Rack Washer(s): Anayeli CHOI Procedure: open reduction and internal fixation of right hip fracture Complications: none Estimated blood loss: 50 cc Anesthesia: Spinal Drains: None IVF Urinary Output (mLs): 0 (no fole) Tourniquet time (min at mmHg) none Patient to: PACU Patient Condition: Good Implant/Devices: SEE IMPLANT LOG (if applicable) Date/Time of Procedure: SEE SURGICAL CARE RECORD Anayeli Wagner December 27, 2017 12:29
[2017-12-27] MEDS: LACTATED RINGER'S 1000 ML INJ 1,000 ML IV SCH ×2 (12:30→19:53)
[2017-12-27] MEDS ORDERED: MIDAZOLAM HCL 2 MG/2 ML VIAL ONE (12:33)
[2017-12-27] MEDS ORDERED: DO NOT ADM ANY ANTICOAGULANT DRUGS PRN (13:45)
[2017-12-27] MEDS: ACETAMINOPHEN/HYDROcodone 325 MG/7.5 MG TAB PO PRN (14:15)
[2017-12-27 14:28] VITALS: BP 136/58; PULSE 89; RESP 20; TEMP 98.1; O2SAT 96
[2017-12-27] MEDS ORDERED: CYCLOBENZAPRINE HCL 10 MG TAB PO PRN (15:00)
[2017-12-27] MEDS ORDERED: CYCLOBENZAPRINE HCL 10 MG TAB PO ONE (15:00)
--- NOTE | 2017-12-27 15:17 | HHI.PR ---
Subjective Remarks Patient S/P ORIF right hip with Dr. Capellan Patient c/o muscle spasms Objective Vitals Vital Signs Date Time Temp Pulse Resp B/P (MAP) Pulse Ox O2 Delivery O2 Flow Rate FiO2 12/27/17 13:30 98.3 86 16 120/57 (78) 97 Room Air 12/27/17 13:15 83 16 110/56 (74) 95 Room Air 12/27/17 13:00 80 16 112/53 (72) 95 Room Air 12/27/17 12:45 81 16 116/54 (74) 96 Nasal Cannula 2 12/27/17 12:30 84 16 115/56 (75) 96 Nasal Cannula 2 12/27/17 12:27 98.3 86 16 127/59 (81) 94 Nasal Cannula 2 12/27/17 10:36 Nasal Cannula 12/27/17 08:00 98.3 86 18 130/59 (82) 98 12/27/17 03:48 97.8 79 18 119/68 (85) 98 12/26/17 23:40 97.8 72 18 130/60 (83) 97 12/26/17 19:55 97.7 77 18 108/55 (72) 98 12/26/17 16:19 98.1 79 18 130/60 (83) 99 12/27/17 12/27/17 12/28/17 14:59 22:59 06:59 Intake Total 1800 ml Output Total 50 ml Balance 1750 ml Other 1800 ml Estimated Blood Loss 50 ml Result Diagram: 12/27/17 0816 12/27/17 0816 Other Results Laboratory Tests Test 12/26/17 09:40 12/27/17 08:16 White Blood Count 7.1 TH/MM3 8.4 TH/MM3 Red Blood Count 2.46 MIL/MM3 2.30 MIL/MM3 Hemoglobin 8.9 GM/DL 8.9 GM/DL Hematocrit 25.4 % 24.4 % Mean Corpuscular Volume 103.5 FL 106.1 FL Mean Corpuscular Hemoglobin 36.1 PG 38.6 PG Mean Corpuscular Hemoglobin Concent 34.9 % 36.4 % Red Cell Distribution Width 18.2 % 18.5 % Platelet Count 283 TH/MM3 284 TH/MM3 Mean Platelet Volume 7.9 FL 8.4 FL Neutrophils (%) (Auto) 82.7 % 77.6 % Lymphocytes (%) (Auto) 7.7 % 13.9 % Monocytes (%) (Auto) 9.0 % 6.7 % Eosinophils (%) (Auto) 0.1 % 0.8 % Basophils (%) (Auto) 0.5 % 1.0 % Neutrophils # (Auto) 5.9 TH/MM3 6.5 TH/MM3 Lymphocytes # (Auto) 0.5 TH/MM3 1.2 TH/MM3 Monocytes # (Auto) 0.6 TH/MM3 0.6 TH/MM3 Eosinophils # (Auto) 0.0 TH/MM3 0.1 TH/MM3 Basophils # (Auto) 0.0 TH/MM3 0.1 TH/MM3 CBC Comment DIFF FINAL AUTO DIFF Differential Comment FINAL DIFF MANUAL Hematology Comments Prothrombin Time 11.6 SEC Prothromb Time International Ratio 1.1 RATIO Activated Partial Thromboplast Time 22.9 SEC Blood Urea Nitrogen 17 MG/DL 20 MG/DL Creatinine 1.27 MG/DL 1.08 MG/DL Random Glucose 105 MG/DL 108 MG/DL Total Protein 6.6 GM/DL Albumin 3.1 GM/DL Calcium Level 8.1 MG/DL 8.2 MG/DL Alkaline Phosphatase 142 U/L Aspartate Amino Transf (AST/SGOT) 17 U/L Alanine Aminotransferase (ALT/SGPT) 16 U/L Total Bilirubin 1.9 MG/DL Sodium Level 141 MEQ/L 138 MEQ/L Potassium Level 4.3 MEQ/L 6.2 MEQ/L Chloride Level 107 MEQ/L 105 MEQ/L Carbon Dioxide Level 27.4 MEQ/L 26.9 MEQ/L Anion Gap 7 MEQ/L 6 MEQ/L Estimat Glomerular Filtration Rate 54 ML/MIN 65 ML/MIN Differential Total Cells Counted 100 Neutrophils % (Manual) 74 % Band Neutrophils % 1 % Lymphocytes % 16 % Monocytes % 8 % Neutrophils # (Manual) 6.4 TH/MM3 Myelocytes 1 % Platelet Estimate NORMAL Platelet Morphology Comment NORMAL Basophilic Stippling MOD Imaging Last Impressions Knee X-Ray 12/26/17 Signed Impressions: CONCLUSION: 1. 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 2. Osteopenia. Hip and Pelvis X-Ray 12/26/17 Signed Impressions: CONCLUSION: Displaced intertrochanteric fracture right hip Objective Remarks GENERAL: This is a well-nourished, well-developed patient, in no apparent distress. SKIN: Post op dressing dry and intact CARDIOVASCULAR: Regular rate and rhythm RESPIRATORY: Clear to auscultation. Breath sounds equal bilaterally. GASTROINTESTINAL: Abdomen soft, non-tender, nondistended. Normal active bowel sounds MUSCULOSKELETAL: Extremities without clubbing, cyanosis, or edema. NEURO: Alert & Oriented . Moves all ext x4 Procedures ORIF right hip 12/27/[address] Capellan A/P Problem List: (1) Hip fracture ICD Codes: S72.009A - Fracture of unspecified part of neck of unspecified femur , initial encounter for closed fracture Status: Acute Plan: Right hip fracture Patient had a mechanical fall today unable to stand with severe right hip pain and Hip/pelvis x-ray reviewed and reveals a displaced intertrochanteric fracture of the right hip Patient has had recent knee surgery with Dr. Capellan requesting orthopedic surgery Dr. Capellan Consultation placed Acetaminophen, [place] and Morphine as needed for pain S/P right hip ORIF with Dr. Capellan 12/27 add Flexeril 5 mg PO Q8H as needed for muscle spasms recheck CBC in AM SCDs for DVT prophylaxis orthopedic surgery to determine further DVT prophylaxis MGUS Chronic follows with Dr. Claudio GERD Continue patient's home omeprazole BPH Continue home Flomax (2) MGUS (monoclonal gammopathy of unknown significance) ICD Codes: D47.2 - Monoclonal gammopathy Status: Chronic (3) GERD (gastroesophageal reflux disease) ICD Codes: K21.9 - Gastro-esophageal reflux disease without esophagitis Status: Chronic (4) BPH (benign prostatic hyperplasia) ICD Codes: N40.0 - Benign prostatic hyperplasia without lower urinary tract symptoms Status: Chronic (5) Status post total left knee replacement ICD Codes: Z96.652 - Presence of left artificial knee joint Problem Qualifiers (1) Hip fracture: Qualified Codes: S72.001A - Fracture of unspecified part of neck of right femur , initial encounter for closed fracture Yin Alvarez December 27, 2017 15:16
--- NOTE | 2017-12-27 16:28 | RADRPT ---
EXAM DATE: 12/27/2017 3:09 PM EDT AGE/SEX: 87 years / Male INDICATIONS: Right troch nail. CLINICAL DATA: This is the patient's initial encounter. Patient reports that signs and symptoms have been present for 1 day and indicates a pain score of Nonresponsive. MEDICAL/SURGICAL HISTORY: Non-responsive. Non-responsive. COMPARISON: No prior [facility] exams available for comparison. FINDINGS: Interval intramedullary oliverio fixation of right femoral intertrochanteric fracture. Hardware appears we ll positioned and intact. There is near-anatomic alignment of the fracture fragments. CONCLUSION: 1. Status post right hip ORIF, as above. Electronically signed by: Huang Reeder MD 12/27/2017 4:27 PM EDT
[2017-12-27 19:47] VITALS: BP 125/59; PULSE 104; RESP 18; TEMP 98.6; O2SAT 94
[2017-12-27] MEDS: TAMSULOSIN HCL 0.4 MG CAP PO SCH (19:48)
[2017-12-27] MEDS: MAGNESIUM HYDROXIDE SUSP 30 ML CUP PO PRN (19:48)
[2017-12-27 20:33] VITALS: O2SAT 95
[2017-12-28] VITALS (8 sets, daily range): BP systolic 102–151; BP diastolic 54–70; PULSE 103–123; RESP 16–18; TEMP 98.3–99.2; O2SAT 92–96
[2017-12-28] MEDS: SODIUM CHLORIDE 0.9% FLUSH 10 ML FLUSH IV FLUSH SCH ×2 (08:09→20:20)
[2017-12-28] MEDS: APIXABAN 2.5 MG TABLET PO SCH ×2 (08:14→20:19)
[2017-12-28] MEDS: PANTOPRAZOLE SOD 20 MG DELAYED RELEASE TAB PO SCH (08:14)
[2017-12-28] MEDS: ACETAMINOPHEN/HYDROcodone 325 MG/7.5 MG TAB PO PRN ×2 (08:15→18:05)
--- NOTE | 2017-12-28 08:17 | PD.ORT.PN ---
Subjective Subjective Remarks Pt fairly comfortable at present. Objective Vitals Vital Signs Date Time Temp Pulse Resp B/P (MAP) Pulse Ox O2 Delivery O2 Flow Rate FiO2 12/28/17 03:00 99.0 120 18 129/70 (89) 96 12/28/17 00:22 93 Nasal Cannula 2.00 12/28/17 00:03 99.2 123 18 151/69 (96) 93 12/27/17 20:33 95 12/27/17 19:47 98.6 104 18 125/59 (81) 94 12/27/17 14:28 98.1 89 20 136/58 (84) 96 12/27/17 13:30 98.3 86 16 120/57 (78) 97 Room Air 12/27/17 13:15 83 16 110/56 (74) 95 Room Air 12/27/17 13:00 80 16 112/53 (72) 95 Room Air 12/27/17 12:45 81 16 116/54 (74) 96 Nasal Cannula 2 12/27/17 12:30 84 16 115/56 (75) 96 Nasal Cannula 2 12/27/17 12:27 98.3 86 16 127/59 (81) 94 Nasal Cannula 2 12/27/17 10:36 Nasal Cannula I/O 12/27/17 12/27/17 12/27/17 12/28/17 12/28/17 12/28/17 07:00 15:00 23:00 07:00 15:00 23:00 Intake Total 360 ml 1800 ml 460 ml 580 ml Output Total 50 ml 400 ml 200 ml Balance 360 ml 1750 ml 60 ml 580 ml -200 ml Intake Oral 360 ml 360 ml 480 ml IV Total 100 ml 100 ml Other 1800 ml Output Urine Total 400 ml 200 ml Estimated Blood Loss 50 ml # Voids 4 1 5 # Bowel Movements 0 0 Result Diagram: 12/27/17 0816 12/27/17 0816 Objective Remarks Dressing dry and intact. In bed at present time. No calf tenderness. NV intact to toes. Assessment & Plan Ortho Post Op Day #: 1 Problem List: Assessment and Plan OOB, PT for both legs today. Rehab soon. Aurea Capellan MD December 28, 2017 08:17
[2017-12-28 08:36] LABS: HEMATOCRIT 22.7 % (39.0-51.0); HEMOGLOBIN 7.8 GM/DL (13.0-17.0)
[2017-12-28 10:23] LABS: AUTOMATED NEUTROPHIL # 9.5 TH/MM3 (1.8-7.7); BASOPHIL # 0.1 TH/MM3 (0-0.2); BASOPHIL % 0.8 % (0.0-2.0); HEMATOCRIT 21.1 % (39.0-51.0); HEMOGLOBIN 7.7 GM/DL (13.0-17.0); LYMPHOCYTE # 0.9 TH/MM3 (1.0-4.8); MEAN CELL VOLUME 104.3 FL (80.0-100.0); MEAN CORPUSCULAR HEMOGLOBIN 38.2 PG (27.0-34.0); MEAN PLATELET VOLUME 9.2 FL (7.0-11.0); MONO % 4.1 % (0.0-8.0); MONOCYTE # 0.5 TH/MM3 (0-0.9); NEUT % 87.1 % (16.0-70.0); PLATELET COUNT 348 TH/MM3 (150-450); RED BLOOD COUNT 2.02 MIL/MM3 (4.50-5.90); RED CELL DISTRIBUTION WIDTH 20.4 % (11.6-17.2); WHITE BLOOD COUNT 10.9 TH/MM3 (4.0-11.0)
[2017-12-28 10:24] LABS: MEAN CORPUSCULAR HGB CONC 36.6 % (32.0-36.0)
--- NOTE | 2017-12-28 10:30 | HHI.PR ---
Subjective Remarks Pt complains of pain but appears comfortable at the time of examination after pain medications given Pt eating and drinking ok No BM as of yet. +flatus Objective Vitals Vital Signs Date Time Temp Pulse Resp B/P (MAP) Pulse Ox O2 Delivery O2 Flow Rate FiO2 12/28/17 10:04 92 21 12/28/17 03:00 99.0 120 18 129/70 (89) 96 12/28/17 00:22 93 Nasal Cannula 2.00 12/28/17 00:03 99.2 123 18 151/69 (96) 93 12/27/17 20:33 95 12/27/17 19:47 98.6 104 18 125/59 (81) 94 12/27/17 14:28 98.1 89 20 136/58 (84) 96 12/27/17 13:30 98.3 86 16 120/57 (78) 97 Room Air 12/27/17 13:15 83 16 110/56 (74) 95 Room Air 12/27/17 13:00 80 16 112/53 (72) 95 Room Air 12/27/17 12:45 81 16 116/54 (74) 96 Nasal Cannula 2 12/27/17 12:30 84 16 115/56 (75) 96 Nasal Cannula 2 12/27/17 12:27 98.3 86 16 127/59 (81) 94 Nasal Cannula 2 12/27/17 10:36 Nasal Cannula 12/28/17 12/28/17 12/29/17 15:00 23:00 07:00 Output Total 200 ml Balance -200 ml Output Urine Total 200 ml Result Diagram: 12/28/17 0750 12/27/17 0816 Other Results Laboratory Tests Test 12/27/17 08:16 12/28/17 07:50 White Blood Count 8.4 TH/MM3 Red Blood Count 2.30 MIL/MM3 Hemoglobin 8.9 GM/DL 7.8 GM/DL Hematocrit 24.4 % 22.7 % Mean Corpuscular Volume 106.1 FL Mean Corpuscular Hemoglobin 38.6 PG Mean Corpuscular Hemoglobin Concent 36.4 % Red Cell Distribution Width 18.5 % Platelet Count 284 TH/MM3 Mean Platelet Volume 8.4 FL Neutrophils (%) (Auto) 77.6 % Lymphocytes (%) (Auto) 13.9 % Monocytes (%) (Auto) 6.7 % Eosinophils (%) (Auto) 0.8 % Basophils (%) (Auto) 1.0 % Neutrophils # (Auto) 6.5 TH/MM3 Lymphocytes # (Auto) 1.2 TH/MM3 Monocytes # (Auto) 0.6 TH/MM3 Eosinophils # (Auto) 0.1 TH/MM3 Basophils # (Auto) 0.1 TH/MM3 CBC Comment AUTO DIFF Differential Total Cells Counted 100 Neutrophils % (Manual) 74 % Band Neutrophils % 1 % Lymphocytes % 16 % Monocytes % 8 % Neutrophils # (Manual) 6.4 TH/MM3 Myelocytes 1 % Differential Comment FINAL DIFF MANUAL Platelet Estimate NORMAL Platelet Morphology Comment NORMAL Basophilic Stippling MOD Hematology Comments Blood Urea Nitrogen 20 MG/DL Creatinine 1.08 MG/DL Random Glucose 108 MG/DL Calcium Level 8.2 MG/DL Sodium Level 138 MEQ/L Potassium Level 6.2 MEQ/L Chloride Level 105 MEQ/L Carbon Dioxide Level 26.9 MEQ/L Anion Gap 6 MEQ/L Estimat Glomerular Filtration Rate 65 ML/MIN Imaging Last Impressions Knee X-Ray 12/26/17 0000 Signed Impressions: CONCLUSION: 1. 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 2. Osteopenia. Hip and Pelvis X-Ray 12/26/17 0000 Signed Impressions: CONCLUSION: Displaced intertrochanteric fracture right hip Objective Remarks GENERAL: This is a well-nourished, well-developed patient, in no apparent distress. SKIN: Post op dressing dry and intact CARDIO: Regular rate and rhythm RESP: CTA bilaterally. ABD: +BS, soft, non-tender, nondistended. EXT: Extremities without clubbing, cyanosis, or edema. RLE immobilizer in place Procedures ORIF right hip 12/27/[address] Capellan A/P Problem List: (1) Hip fracture ICD Codes: S72.009A - Fracture of unspecified part of neck of unspecified femur , initial encounter for closed fracture Status: Acute Plan: Right hip fracture - Patient is an 87 y/o male with osteoarthritis, BPH, GERD and MGUS (follows with Dr. Claudio). - Patient presented to the ER on 12/26 with complaining of right hip pain after a fall. - Hip/pelvis x-ray reviewed and reveals a displaced intertrochanteric fracture of the right hip - Patient has had recent knee surgery with Dr. Capellan requesting orthopedic surgery Dr. Capellan - Consultation placed to Dr. Capellan - Pt underwent right hip ORIF with Dr. Capellan on 12/27 - Acetaminophen, [place] and Morphine as needed for pain - Flexeril 5 mg PO Q8H as needed for muscle spasms SCDs for DVT prophylaxis orthopedic surgery to determine further DVT prophylaxis MGUS - Chronic follows with Dr. Claudio Anemia - Patient was recently admitted to [facility] 11/15/17 - 11/17/17 for symptomatic anemia. - EGD/Colonoscopy (11/16/17) --> gastritis/Oreilly's esophagus/large HH. rectal polyp and int/ext hemorrhoids. - During that admission patient was seen by hem/onc who felt the anemia is related to surgery and GI losses from Eliquis. - Post op labs with noted Hgb 7.8/Hct 22.7 - Pt has PRBCs on hold ordered for possible transfusion. - Recheck CBC in AM GERD - Continue patient's home omeprazole BPH - Continue home Flomax (2) MGUS (monoclonal gammopathy of unknown significance) ICD Codes: D47.2 - Monoclonal gammopathy Status: Chronic (3) GERD (gastroesophageal reflux disease) ICD Codes: K21.9 - Gastro-esophageal reflux disease without esophagitis Status: Chronic (4) BPH (benign prostatic hyperplasia) ICD Codes: N40.0 - Benign prostatic hyperplasia without lower urinary tract symptoms Status: Chronic (5) Status post total left knee replacement ICD Codes: Z96.652 - Presence of left artificial knee joint Assessment and Plan Patient examined. Assessment and plan formulated with Pascale Thomas PA-C. I agree with the above. s/o orif. blood loss anemia.. currently denies dizziness/sob. transfuse as needed. await rehab placement. Problem Qualifiers (1) Hip fracture: Qualified Codes: S72.001A - Fracture of unspecified part of neck of right femur , initial encounter for closed fracture Pascale Thomas December 28, 2017 10:30 Moises Ferguson MD December 28, 2017 15:02
[2017-12-28] MEDS: LACTATED RINGER'S 1000 ML INJ 1,000 ML IV SCH (10:48)
[2017-12-28 10:58] LABS: BANDS 18 % (0-6); LYMPHOCYTES 11 % (9-44); METAMYELOCYTES 3 % (0-1); MONOCYTES 4 % (0-8); NEUTROPHIL # MANUAL DIFF 9.3 TH/MM3 (1.8-7.7); POLYS (SEG NEUTROPHILS) 64 % (16-70)
[2017-12-28 10:59] LABS: TOXIC GRANULATION 1+ (NORMAL)
[2017-12-28] MEDS: TAMSULOSIN HCL 0.4 MG CAP PO SCH (20:19)
[2017-12-28] MEDS: MULTIVITAMINS/MINERALS THERAPEUTIC TAB PO SCH (20:19)
[2017-12-28] MEDS: DOCUSATE SODIUM 100 MG CAP PO SCH (20:19)
[2017-12-28] MEDS: MAGNESIUM HYDROXIDE SUSP 30 ML CUP PO PRN (20:19)
[2017-12-29] VITALS (12 sets, daily range): BP systolic 92–127; BP diastolic 50–69; PULSE 86–109; RESP 17–20; TEMP 97.5–98.6; O2SAT 94–100
[2017-12-29 06:39] LABS: BICARBONATE 24.4 MEQ/L (21.0-32.0); CALCIUM 7.8 MG/DL (8.5-10.1); CREATININE 1.32 MG/DL (0.60-1.30); MAGNESIUM 2.3 MG/DL (1.5-2.5)
[2017-12-29 07:13] LABS: AUTOMATED NEUTROPHIL # 6.6 TH/MM3 (1.8-7.7); BASOPHIL # 0.1 TH/MM3 (0-0.2); BASOPHIL % 1.2 % (0.0-2.0); EOSINOPHIL # 0.1 TH/MM3 (0-0.4); EOSINOPHIL % 1.4 % (0.0-4.0); LYMPH % 16.2 % (9.0-44.0); LYMPHOCYTE # 1.5 TH/MM3 (1.0-4.8); MEAN CELL VOLUME 109.7 FL (80.0-100.0); MEAN CORPUSCULAR HEMOGLOBIN 39.5 PG (27.0-34.0); MEAN PLATELET VOLUME 9.3 FL (7.0-11.0); MONO % 8.1 % (0.0-8.0); MONOCYTE # 0.7 TH/MM3 (0-0.9); NEUT % 73.1 % (16.0-70.0); PLATELET COUNT 257 TH/MM3 (150-450); RED BLOOD COUNT 1.69 MIL/MM3 (4.50-5.90); RED CELL DISTRIBUTION WIDTH 18.5 % (11.6-17.2); WHITE BLOOD COUNT 9.1 TH/MM3 (4.0-11.0)
[2017-12-29 07:24] LABS: HEMOGLOBIN 6.7 GM/DL (13.0-17.0)
[2017-12-29 07:25] LABS: HEMATOCRIT 18.5 % (39.0-51.0)
[2017-12-29] MEDS: APIXABAN 2.5 MG TABLET PO SCH ×2 (07:59→21:58)
[2017-12-29] MEDS: DOCUSATE SODIUM 100 MG CAP PO SCH ×2 (07:59→21:00)
[2017-12-29] MEDS: SODIUM CHLORIDE 0.9% FLUSH 10 ML FLUSH IV FLUSH SCH ×2 (07:59→21:59)
[2017-12-29] MEDS: PANTOPRAZOLE SOD 20 MG DELAYED RELEASE TAB PO SCH (07:59)
[2017-12-29] MEDS: MULTIVITAMINS/MINERALS THERAPEUTIC TAB PO SCH ×2 (07:59→21:58)
--- NOTE | 2017-12-29 09:46 | PD.ORT.PN ---
Subjective Subjective Remarks Pt feels weak today and complaining of some numbness in both hands. Not much pain. Objective Vitals Vital Signs Date Time Temp Pulse Resp B/P (MAP) Pulse Ox O2 Delivery O2 Flow Rate FiO2 12/29/17 08:12 Room Air 12/29/17 08:00 97.8 109 18 102/58 (73) 97 12/29/17 00:01 97.8 97 18 115/55 (75) 95 12/28/17 20:00 98.3 103 18 102/58 (73) 93 12/28/17 17:25 94 21 12/28/17 16:00 98.3 106 16 109/54 (72) 93 12/28/17 16:00 94 Room Air 12/28/17 12:00 98.3 120 16 103/69 (80) 94 12/28/17 12:00 94 Room Air 12/28/17 10:04 92 21 12/28/17 10:00 98.6 112 18 127/59 (81) 96 I/O 12/28/17 12/28/17 12/28/17 12/29/17 12/29/17 12/29/17 07:00 15:00 23:00 07:00 15:00 23:00 Intake Total 580 ml 800 ml 360 ml Output Total 200 ml 700 ml 250 ml Balance 580 ml -200 ml 100 ml 110 ml Intake Oral 480 ml 800 ml 360 ml IV Total 100 ml Output Urine Total 200 ml 700 ml 250 ml # Voids 5 2 # Bowel Movements 0 0 Result Diagram: 12/29/17 0530 12/29/17 0530 Imaging Last 72 hours Impressions Hip X-Ray 12/27/17 0000 Signed Impressions: CONCLUSION: 1. Status post right hip ORIF, as above. Objective Remarks Dressing dry and intact. In bed at present time. No calf tenderness. NV intact to toes. Assessment & Plan Ortho Post Op Day #: 2 Problem List: Assessment and Plan transfuse 2 units PC today. Rehab soon. Cont medical management. Aurea Capellan MD December 29, 2017 09:46
[2017-12-29 10:31] LABS: BANDS 10 % (0-6); LYMPHOCYTES 15 % (9-44); MONOCYTES 10 % (0-8); MYELOCYTES 1 % (0-0); NEUTROPHIL # MANUAL DIFF 6.8 TH/MM3 (1.8-7.7); POLYS (SEG NEUTROPHILS) 64 % (16-70); TOXIC GRANULATION 1+ (NORMAL)
--- NOTE | 2017-12-29 12:12 | HHI.PR ---
Subjective Remarks Pt with some overall weakness today Pt trying to have a BM on bedpan Denies any chest pain, SOB, palpitations. Objective Vitals Vital Signs Date Time Temp Pulse Resp B/P (MAP) Pulse Ox O2 Delivery O2 Flow Rate FiO2 12/29/17 08:12 Room Air 12/29/17 08:00 97.8 109 18 102/58 (73) 97 12/29/17 00:01 97.8 97 18 115/55 (75) 95 12/28/17 20:00 98.3 103 18 102/58 (73) 93 12/28/17 17:25 94 21 12/28/17 16:00 98.3 106 16 109/54 (72) 93 12/28/17 16:00 94 Room Air 12/29/17 12/29/17 12/30/17 14:59 22:59 06:59 # Bowel Movements 2 Result Diagram: 12/29/17 0530 12/29/17 0530 Other Results Laboratory Tests Test 12/28/17 07:50 12/29/17 05:30 White Blood Count 10.9 TH/MM3 9.1 TH/MM3 Red Blood Count 2.02 MIL/MM3 1.69 MIL/MM3 Hemoglobin 7.7 GM/DL 6.7 GM/DL Hematocrit 21.1 % 18.5 % Mean Corpuscular Volume 104.3 FL 109.7 FL Mean Corpuscular Hemoglobin 38.2 PG 39.5 PG Mean Corpuscular Hemoglobin Concent 36.6 % 36.0 % Red Cell Distribution Width 20.4 % 18.5 % Platelet Count 348 TH/MM3 257 TH/MM3 Mean Platelet Volume 9.2 FL 9.3 FL Neutrophils (%) (Auto) 87.1 % 73.1 % Lymphocytes (%) (Auto) 8.0 % 16.2 % Monocytes (%) (Auto) 4.1 % 8.1 % Eosinophils (%) (Auto) 0.0 % 1.4 % Basophils (%) (Auto) 0.8 % 1.2 % Neutrophils # (Auto) 9.5 TH/MM3 6.6 TH/MM3 Lymphocytes # (Auto) 0.9 TH/MM3 1.5 TH/MM3 Monocytes # (Auto) 0.5 TH/MM3 0.7 TH/MM3 Eosinophils # (Auto) 0.0 TH/MM3 0.1 TH/MM3 Basophils # (Auto) 0.1 TH/MM3 0.1 TH/MM3 CBC Comment AUTO DIFF AUTO DIFF Differential Total Cells Counted 100 100 Neutrophils % (Manual) 64 % 64 % Band Neutrophils % 18 % 10 % Lymphocytes % 11 % 15 % Monocytes % 4 % 10 % Neutrophils # (Manual) 9.3 TH/MM3 6.8 TH/MM3 Metamyelocytes 3 % Differential Comment FINAL DIFF MANUAL FINAL DIFF MANUAL Toxic Granulation 1+ 1+ Platelet Estimate NORMAL NORMAL Platelet Morphology Comment NORMAL NORMAL Hematology Comments Myelocytes 1 % Blood Urea Nitrogen 31 MG/DL Creatinine 1.32 MG/DL Random Glucose 97 MG/DL Calcium Level 7.8 MG/DL Magnesium Level 2.3 MG/DL Sodium Level 137 MEQ/L Potassium Level 5.6 MEQ/L Chloride Level 104 MEQ/L Carbon Dioxide Level 24.4 MEQ/L Anion Gap 9 MEQ/L Estimat Glomerular Filtration Rate 51 ML/MIN Imaging Last Impressions Knee X-Ray 12/26/17 0000 Signed Impressions: CONCLUSION: 1. 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 2. Osteopenia. Hip and Pelvis X-Ray 12/26/17 0000 Signed Impressions: CONCLUSION: Displaced intertrochanteric fracture right hip Objective Remarks GENERAL: This is a well-nourished, well-developed patient, in no apparent distress. SKIN: Post op dressing dry and intact CARDIO: Regular rate and rhythm RESP: CTA bilaterally. ABD: +BS, soft, non-tender, nondistended. EXT: Extremities without clubbing, cyanosis, or edema. RLE immobilizer in place Procedures ORIF right hip 12/27/[address] Capellan A/P Problem List: (1) Hip fracture ICD Codes: S72.009A - Fracture of unspecified part of neck of unspecified femur , initial encounter for closed fracture Status: Acute Plan: Right hip fracture - Patient is an 87 y/o male with osteoarthritis, BPH, GERD and MGUS (follows with Dr. Claudio). - Patient presented to the ER on 12/26 with complaining of right hip pain after a fall. - Hip/pelvis x-ray reviewed and reveals a displaced intertrochanteric fracture of the right hip - Patient has had recent knee surgery with Dr. Capellan requesting orthopedic surgery Dr. Capellan - Consultation placed to Dr. Capellan - Pt underwent right hip ORIF with Dr. Capellan on 5/29 - Acetaminophen, [place] and Morphine as needed for pain - Flexeril 5 mg PO Q8H as needed for muscle spasms - Pt likely planned for d/c tomorrow, unclear if he will be accepted at [facility] vs. [facility] DVT prophylaxis with Eliquis 2.5mg BID MGUS - Chronic follows with Dr. Claudio Anemia - Patient was recently admitted to [facility] - 11/17/17 for symptomatic anemia. - EGD/Colonoscopy (11/16/17) --> gastritis/Oreilly's esophagus/large HH. rectal polyp and int/ext hemorrhoids. - During that admission patient was seen by hem/onc who felt the anemia is related to surgery and GI losses from Eliquis. - Post op labs with noted Hgb 7.8/Hct 22.7 - On 12/29 Hgb dropped to 6.7 - Pt planned for transfusion with 2units of PRBCs today - Recheck CBC in AM GERD - Continue patient's home omeprazole BPH - Continue home Flomax (2) MGUS (monoclonal gammopathy of unknown significance) ICD Codes: D47.2 - Monoclonal gammopathy Status: Chronic (3) GERD (gastroesophageal reflux disease) ICD Codes: K21.9 - Gastro-esophageal reflux disease without esophagitis Status: Chronic (4) BPH (benign prostatic hyperplasia) ICD Codes: N40.0 - Benign prostatic hyperplasia without lower urinary tract symptoms Status: Chronic (5) Status post total left knee replacement ICD Codes: Z96.652 - Presence of left artificial knee joint Assessment and Plan Patient examined. Assessment and plan formulated with Pascale ROOT-Sandee. I agree with the above. s/o orif. blood loss anemia.. currently denies dizziness/sob. transfuse today. d/c tomorrow for snf/rehab Problem Qualifiers (1) Hip fracture: Qualified Codes: S72.001A - Fracture of unspecified part of neck of right femur , initial encounter for closed fracture Pascale Thomas December 29, 2017 12:12 Moises Ferguson MD December 29, 2017 13:09
[2017-12-29] MEDS: ACETAMINOPHEN/HYDROcodone 325 MG/7.5 MG TAB PO PRN ×3 (13:46→22:09)
[2017-12-29] MEDS: TAMSULOSIN HCL 0.4 MG CAP PO SCH (21:58)
[2017-12-30 00:01] VITALS: BP 101/58; PULSE 87; RESP 18; TEMP 97.3; O2SAT 96
[2017-12-30 02:18] VITALS: BP 112/54; PULSE 86; RESP 16; TEMP 98.9; O2SAT 96
[2017-12-30 04:00] VITALS: BP 112/54; PULSE 90; RESP 17; TEMP 97.7; O2SAT 95
[2017-12-30 05:37] LABS: BICARBONATE 23.2 MEQ/L (21.0-32.0); CREATININE 1.27 MG/DL (0.60-1.30); MAGNESIUM 2.2 MG/DL (1.5-2.5)
[2017-12-30 05:40] LABS: AUTOMATED NEUTROPHIL # 5.8 TH/MM3 (1.8-7.7); BASOPHIL % 0.6 % (0.0-2.0); EOSINOPHIL # 0.2 TH/MM3 (0-0.4); EOSINOPHIL % 2.3 % (0.0-4.0); HEMATOCRIT 22.1 % (39.0-51.0); HEMOGLOBIN 8.2 GM/DL (13.0-17.0); LYMPH % 15.9 % (9.0-44.0); LYMPHOCYTE # 1.3 TH/MM3 (1.0-4.8); MEAN CELL VOLUME 105.2 FL (80.0-100.0); MEAN CORPUSCULAR HEMOGLOBIN 39.2 PG (27.0-34.0); MEAN PLATELET VOLUME 8.5 FL (7.0-11.0); MONO % 9.1 % (0.0-8.0); MONOCYTE # 0.7 TH/MM3 (0-0.9); NEUT % 72.1 % (16.0-70.0); PLATELET COUNT 283 TH/MM3 (150-450); RED CELL DISTRIBUTION WIDTH 19.8 % (11.6-17.2)
[2017-12-30 05:41] LABS: MEAN CORPUSCULAR HGB CONC 37.2 % (32.0-36.0)
[2017-12-30 08:00] VITALS: BP 120/56; PULSE 93; RESP 18; TEMP 98.8; O2SAT 92
[2017-12-30] MEDS: MULTIVITAMINS/MINERALS THERAPEUTIC TAB PO SCH (08:48)
[2017-12-30] MEDS: PANTOPRAZOLE SOD 20 MG DELAYED RELEASE TAB PO SCH (08:48)
[2017-12-30] MEDS: APIXABAN 2.5 MG TABLET PO SCH (08:48)
[2017-12-30] MEDS: DOCUSATE SODIUM 100 MG CAP PO SCH (08:50)
[2017-12-30] MEDS: SODIUM CHLORIDE 0.9% FLUSH 10 ML FLUSH IV FLUSH SCH (08:50)
[2017-12-30] MEDS: ACETAMINOPHEN/HYDROcodone 325 MG/7.5 MG TAB PO PRN (09:54)
[2017-12-30 10:06] LABS: BANDS 12 % (0-6); LYMPHOCYTES 14 % (9-44); MONOCYTES 5 % (0-8); MYELOCYTES 1 % (0-0); NEUTROPHIL # MANUAL DIFF 6.5 TH/MM3 (1.8-7.7); POLYS (SEG NEUTROPHILS) 68 % (16-70)
[2017-12-30 10:07] LABS: POLYCHROMASIA 3.5 % (0.0-1.9); TOXIC GRANULATION 1+ (NORMAL)
--- NOTE | 2017-12-30 10:34 | PD.ORT.PN ---
Subjective Subjective Remarks Pt feels better today, Not much pain. Objective Vitals Vital Signs Date Time Temp Pulse Resp B/P (MAP) Pulse Ox O2 Delivery O2 Flow Rate FiO2 12/30/17 08:00 98.8 93 18 120/56 (77) 92 12/30/17 04:00 97.7 90 17 112/54 (73) 95 12/30/17 02:18 98.9 86 16 112/54 96 12/30/17 00:01 97.3 87 18 101/58 (72) 96 12/29/17 23:46 98.6 17 92/51 (65) 12/29/17 23:39 98.5 86 18 98/53 (68) 95 12/29/17 22:00 Room Air 12/29/17 21:13 95 21 12/29/17 20:00 97.5 89 17 127/56 (79) 95 12/29/17 19:24 98.0 90 18 106/56 95 12/29/17 16:09 98.3 107 18 113/69 94 12/29/17 16:00 97.8 109 20 98/50 (66) 94 12/29/17 15:47 97.8 109 20 98/50 94 12/29/17 14:33 97 Nasal Cannula 21 12/29/17 12:00 97.6 101 20 106/56 (73) 100 I/O 12/29/17 12/29/17 12/29/17 12/30/17 12/30/17 12/30/17 07:00 15:00 23:00 07:00 15:00 23:00 Intake Total 360 ml 1010 ml 810 ml Output Total 250 ml 500 ml 250 ml Balance 110 ml 510 ml 560 ml Intake Oral 360 ml 600 ml 400 ml Packed Cells 400 ml 400 ml Blood Product IV Normal Saline Flush 10 ml 10 ml Output Urine Total 250 ml 500 ml 250 ml # Voids 2 2 # Bowel Movements 2 2 1 Result Diagram: 12/30/17 0443 12/30/17 0443 Imaging Last 72 hours Impressions Hip X-Ray 12/27/17 0000 Signed Impressions: CONCLUSION: 1. Status post right hip ORIF, as above. Objective Remarks Dressing dry and intact. In chair at present time. No calf tenderness. NV intact to toes. Assessment & Plan Ortho Post Op Day #: 3 Problem List: Assessment and Plan Ok to transfer to rehab today. Aurea Capellan MD Dec 30, 2017 10:34
[2017-12-30] MEDS ORDERED: DOCU1CAP39 PO (10:52)
[2017-12-30] MEDS ORDERED: HYDR-3580 PO (10:52)
[2017-12-30] MEDS ORDERED: APIX2.5T PO (10:52)
[2017-12-30 10:54] VITALS: RESP 18
--- NOTE | 2017-12-30 11:09 | HHI.DS ---
Discharge Summary Admission Date December 26, 2017 at 10:44 Discharge Date: Dec 30, 2017 Admitting Diagnosis Mechanical fall with right hip fracture (1) Hip fracture Diagnosis: Principal ICD Codes: S72.009A - Fracture of unspecified part of neck of unspecified femur , initial encounter for closed fracture Status: Acute (2) MGUS (monoclonal gammopathy of unknown significance) Diagnosis: Secondary ICD Codes: D47.2 - Monoclonal gammopathy Status: Chronic (3) GERD (gastroesophageal reflux disease) Diagnosis: Secondary ICD Codes: K21.9 - Gastro-esophageal reflux disease without esophagitis Status: Chronic (4) BPH (benign prostatic hyperplasia) Diagnosis: Secondary ICD Codes: N40.0 - Benign prostatic hyperplasia without lower urinary tract symptoms Status: Chronic (5) Status post total left knee replacement Diagnosis: Secondary ICD Codes: Z96.652 - Presence of left artificial knee joint (6) Anemia Diagnosis: Secondary ICD Codes: D64.9 - Anemia, unspecified Consultants Dr. Moises Capellan - Orthopedic Surgery Procedures ORIF right hip 12/27/[address] Capellan Brief History Mr. Angel is a pleasant 86 y/o male with osteoarthritis, BPH, GERD and MGUS ( follows with Dr. Claudio). [place] [facility] [place] for left total knee arthroplasty with Dr. Capellan. Patient was recently [place] [facility] [place] for symptomatic anemia. EGD/Colonoscopy 11/16....gastritis/barretts/ large HH. rectal polyp and int/ext hemorrhoids. During that admission patient was seen by hem/onc who feels anemia is related to surgery and GI losses from Eliquis. Patient presents to the ER today with complaining of right hip pain after a fall. He says his cane slipped and he fell landing on his right side. He denies hitting his head or any LOC. He says his children helped him up into a chair. Patient continued to have severe sharp right hip pain. He took 2 Tylenol for his pain without relief of his symptoms. He called 911 today because the pain has not improved and he is unable to walk. Patient denies shortness of breath chest pain nausea vomiting diarrhea constipation fevers chills cough congestion. CBC/BMP: 12/30/17 0443 12/30/17 0443 Significant Findings Laboratory Tests Test 12/28/17 07:50 12/29/17 05:30 12/30/17 04:43 Red Blood Count 2.02 MIL/MM3 (4.50-5.90) 1.69 MIL/MM3 (4.50-5.90) 2.10 MIL/MM3 (4.50-5.90) Hemoglobin 7.7 GM/DL (13.0-17.0) 6.7 GM/DL (13.0-17.0) 8.2 GM/DL (13.0-17.0) Hematocrit 21.1 % (39.0-51.0) 18.5 % (39.0-51.0) 22.1 % (39.0-51.0) Mean Corpuscular Volume 104.3 FL (80.0-100.0) 109.7 FL (80.0-100.0) 105.2 FL (80.0-100.0) Mean Corpuscular Hemoglobin 38.2 PG (27.0-34.0) 39.5 PG (27.0-34.0) 39.2 PG (27.0-34.0) Mean Corpuscular Hemoglobin Concent 36.6 % (32.0-36.0) 37.2 % (32.0-36.0) Red Cell Distribution Width 20.4 % (11.6-17.2) 18.5 % (11.6-17.2) 19.8 % (11.6-17.2) Neutrophils (%) (Auto) 87.1 % (16.0-70.0) 73.1 % (16.0-70.0) 72.1 % (16.0-70.0) Lymphocytes (%) (Auto) 8.0 % (9.0-44.0) Neutrophils # (Auto) 9.5 TH/MM3 (1.8-7.7) Lymphocytes # (Auto) 0.9 TH/MM3 (1.0-4.8) Band Neutrophils % 18 % (0-6) 10 % (0-6) 12 % (0-6) Neutrophils # (Manual) 9.3 TH/MM3 (1.8-7.7) Metamyelocytes 3 % (0-1) Toxic Granulation 1+ (NORMAL) 1+ (NORMAL) 1+ (NORMAL) Monocytes (%) (Auto) 8.1 % (0.0-8.0) 9.1 % (0.0-8.0) Monocytes % 10 % (0-8) Myelocytes 1 % (0-0) 1 % (0-0) Blood Urea Nitrogen 31 MG/DL (7-18) 28 MG/DL (7-18) Creatinine 1.32 MG/DL (0.60-1.30) Calcium Level 7.8 MG/DL (8.5-10.1) 8.0 MG/DL (8.5-10.1) Potassium Level 5.6 MEQ/L (3.5-5.1) Estimat Glomerular Filtration Rate 51 ML/MIN (>89) 54 ML/MIN (>89) Polychromasia 3.5 % (0.0-1.9) Imaging Last Impressions Hip X-Ray 12/27/17 0000 Signed Impressions: CONCLUSION: 1. Status post right hip ORIF, as above. Knee X-Ray 12/26/17 0000 Signed Impressions: CONCLUSION: 1. 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 2. Osteopenia. Hip and Pelvis X-Ray 12/26/17 0000 Signed Impressions: CONCLUSION: Displaced intertrochanteric fracture right hip PE at Discharge GENERAL: This is a well-nourished, well-developed patient, in no apparent distress. SKIN: Post op dressing dry and intact CARDIO: Regular rate and rhythm RESP: CTA bilaterally. ABD: +BS, soft, non-tender, nondistended. EXT: Extremities without clubbing, cyanosis, or edema. RLE immobilizer in place Hospital Course Right hip fracture - Patient is an 87 y/o male with osteoarthritis, BPH, GERD and MGUS (follows with Dr. Claudio). Patient presented to the ER on 12/26 with complaining of right hip pain after a fall. Hip/pelvis x-ray reviewed and reveals a displaced intertrochanteric fracture of the right hip. Patient has had recent knee surgery with Dr. Capellan requesting orthopedic surgery Dr. Capellan. Consultation placed to Dr. Capellan. Pt underwent right hip ORIF with Dr. Capellan on 12/27. Acetaminophen, [place] PRN Pain. DVT prophylaxis with Eliquis 2.5mg BID. Pt being discharged to [facility] to continued PT and medical management. MGUS - Chronic follows with Dr. Claudio Anemia, post-op - Patient was recently [place] [facility] [place] for symptomatic anemia. Previous EGD/Colonoscopy (11/16/17) --> gastritis/Oreilly's esophagus/ large HH. rectal polyp and int/ext hemorrhoids. During that admission patient was seen by hem/onc who felt the anemia is related to surgery and GI losses from Eliquis. Post op labs with noted Hgb 7.8/Hct 22.7. On 12/29 Hgb dropped to 6.7 and pt was transfused with 2units of PRBCs. Recheck of CBC in AM noted improvement in Hgb to 8.2/Hct 22.1. GERD - Continue patient's home omeprazole BPH - Continue home Flomax Pt Condition on Discharge: Stable Discharge Disposition: Rehab Inpatient Discharge Instructions DIET: Follow Instructions for: Heart Healthy Diet Activities you can perform: Weight Bearing as Julien, Shower Only-No Bath Activities to Avoid: Bathing, Driving Follow up Referrals: Orthopedics - 2 Weeks with Aurea Capellan MD PCP Follow-up - [address] Jackson Zamudio New Medications: Apixaban (Eliquis) 2.5 Mg Tab 2.5 MG PO BID for dvt prophylaxis for 14 Days, #28 TAB Docusate Sodium (Dok) 100 Mg Cap 100 MG PO BID for constipation prevention for 14 Days, #28 CAP Hydrocodone/Acetaminophen (Hydrocodone-Acetamin 7.5-325) 7.5 Mg-325 Mg Tablet 1 TAB PO Q4H PRN for PAIN LESS THAN 5 ON SCALE for 10 Days, #60 TAB Hydrocodone/Acetaminophen (Hydrocodone-Acetamin 7.5-325) 7.5 Mg-325 Mg Tablet 2 TAB PO Q4H PRN for PAIN SCALE 5 TO 10 for 14 Days, #168 TAB Continued Medications: Cyanocobalamin (Vitamin B12) 500 Mcg Tab 1000 MCG PO DAILY, #1 BOTTLE Omeprazole (Omeprazole) 20 Mg Tab 20 MG PO DAILY, #30 TAB 0 Refills Tamsulosin (Tamsulosin) 0.4 Mg Cap 0.4 MG HS for Manage Prostate Problems, #30 CAP 0 Refills Discontinued Medications: Meloxicam (Meloxicam) 15 Mg Tab 15 MG PO DAILY for Arthritis Pain, #30 TAB 0 Refills Pascale Thomas Dec 30, 2017 11:09 Moises Ferguson MD Dec 30, 2017 11:26
--- NOTE | 2017-12-30 11:09 | HHI.DCPOC ---
Discharge Care Plan Diagnosis: (1) Hip fracture (2) Anemia (3) BPH (benign prostatic hyperplasia) (4) MGUS (monoclonal gammopathy of unknown significance) (5) GERD (gastroesophageal reflux disease) Goals to Promote Your Health * To prevent worsening of your condition and complications * To maintain your health at the optimal level Directions to Meet Your Goals Take your medications as prescribed Follow your dietary instruction Follow activity as directed Keep your appointments as scheduled Take your immunizations and boosters as scheduled If your symptoms worsen call your PCP, if no PCP go to Urgent Care Center or Emergency Room Smoking is Dangerous to Your Health. Avoid second hand smoke Call the 24-hour hour crisis hotline for domestic abuse at Pascale Thomas Dec 30, 2017 11:09
== END 2017-12-30 12:28 | DRG 481 ==
LOC: NEPE 08:11 → NEDA 10:44 → N06A 11:48
PROVIDERS: ADMIT Hospitalist; ATTEND Hospitalist
PROC: 0QS604Z Reposition Right Upper Femur with Internal Fixation Device, Open Approach (ICD-10-PCS; principal; 2017-12-27 10:41)
PROC: 30233N1 Transfusion of Nonautologous Red Blood Cells into Peripheral Vein, Percutaneous Approach (ICD-10-PCS; 2017-12-29)
DX: S72.141A Displaced intertrochanteric fracture of right femur, initial encounter for closed fracture (principal); D62 Acute posthemorrhagic anemia; D47.2 Monoclonal gammopathy; N40.0 Benign prostatic hyperplasia without lower urinary tract symptoms; K21.9 Gastro-esophageal reflux disease without esophagitis; M19.90 Unspecified osteoarthritis, unspecified site; Z96.652 Presence of left artificial knee joint; W01.0XXA Fall on same level from slipping, tripping and stumbling without subsequent striking against object, initial encounter
CPT/HCPCS: 36430; 73502; 73564; 76000; 80048; 80053; 83735; 85007; 85014; 85018; 85025; 85027; 85610; 85730; 86850; 86900; 86901; 86920; 86922; 94150; 96374; C1713; J0690; J1580; J2250; J2270; J2370; J7120; L1830; P9016